=== PATIENT | male | born 1950 | race Caucasian/White ===

== ENCOUNTER 2018-08-03 08:24 | Inpatient (IN) | payer BC, MEDICARE ==
--- NOTE | 2018-08-03 08:57 | ED ---
Shortness of Breath - HPI Summary HPI Summary: Pt is a 68 y/o male who presents to the ED c/o SOB. 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 Benitez. Several weeks ago, he had a lung biopsy. Since then he has had SOB and hemoptysis. Today, pt feels more weak and SOB. He notes that the SOB and coughing are worse when lying flat. Pt also noticed LE edema 2 days ago. He denies any CP. A few weeks ago, he had a port placed in his left chest and still has bruising without tenderness. He has not started his chemotherapy yet, because his platelets are too low. Pt has not been given platelets because he is waiting on insurance approval. Pt takes daily steroids, but denies any diuretics or blood thinners. He quit smoking 1.5 years ago. He is accompanied by his family. PMHx COPD. - History of Current Complaint Chief Complaint: EDShortnessOfBreath Time Seen by Provider: 08/03/18 08:33 Hx Obtained From: Patient, Family/Visual Supervisor Onset/Duration: Gradual Onset, Lasting Weeks - 2-3, Worse Since Timing: Constant Aggrevating Factors: Recumbent Position Alleviating Factors: Nothing Associated Signs & Symptoms: Cough (Bloody Sputum), Calf Pain/Swelling - Allergy/Home Medications Allergies/Adverse Reactions: Allergies Allergy/AdvReac Type Severity Reaction Status Date / Time No Known Allergies Allergy Verified 07/04/18 08:04 PMH/Surg Hx/FS Hx/Imm Hx Endocrine/Hematology History: Denies: Hx Diabetes Cardiovascular History: Denies: Hx Hypertension, Hx Pacemaker/ICD Respiratory History: Reports: Hx Chronic Obstructive Pulmonary Disease (COPD) History: Denies: Hx Dialysis, Hx Renal Disease Sensory History: Denies: Hx Hearing Aid Psychiatric History: Denies: Hx Panic Disorder - Cancer History Cancer Type, Location and Year: Lung CA - Surgical History Surgery Procedure, Year, and Place: LUMBAR - 3 - LAMINECTOMIES- LAST ON -15 + YRS AGO. Lt ANKLE - SCREW Infectious Disease History: No Infectious Disease History: Denies: Traveled Outside the [place] in Last 30 Days - Family History Known Family History: Positive: Other - acoustic neuroma - Social History Alcohol Use: Occasionally Hx Substance Use: No Substance Use Type: Reports: None Hx Tobacco Use: Yes Smoking Status (MU): Former Smoker Type: Cigarettes Amount Used/How Often: 1ppd Length of Time of Smoking/Using Tobacco: 52 years Have You Smoked in the Last Year: No Review of Systems Positive: Other - Generalized weakness Negative: Chest Pain Positive: Shortness Of Breath, Cough, Other - hemoptysis All Other Systems Reviewed And Are Negative: Yes Physical Exam - Summary Physical Exam Summary: Appearance: Well appearing, no pain distress Skin: warm, dry, reflects adequate perfusion, bruising surrounding port site in left upper chest down to the left breast, non-tender, older appearing Head/face: normal Eyes: EOMI, RITA ENT: mucous membranes moist, no blood in pharynx Neck: supple, non-tender Respiratory: diminished breath sounds with some expiratory wheezes Cardiovascular: RRR, pulses symmetrical, bilateral 2-3+ pitting edema Abdomen: non-tender, soft, port placed in right chest Bowel Sounds: present Musculoskeletal: normal, strength/ROM intact Neuro: normal, sensory motor intact, A&Ox3 Triage Information Reviewed: Yes Vital Signs On Initial Exam: Initial Vitals Temp Pulse Resp BP Pulse Ox 98.0 F 76 18 146/61 97 08/03/18 08:25 08/03/18 08:25 08/03/18 08:25 08/03/18 08:25 08/03/18 08:25 Vital Signs Reviewed: Yes Diagnostics - Vital Signs Vital Signs Temp Pulse Resp BP Pulse Ox 08/03/18 08:25 98.0 F 76 18 146/61 97 - Laboratory Result Diagrams: 08/03/18 09:00 08/03/18 08:38 Lab Statement: Any lab studies that have been ordered have been reviewed, and results considered in the medical decision making process. - Radiology CXR Radiology Interpretation Completed By: Radiologist Summary of Radiographic Findings: Alveolar consolidation at the RIGHT mid to lower lung zone appears increased over the. prior exam concerning for pneumonia given the clinical context. ED physician reviewed radiology report. - CT Chest/Thorax CTA CT Interpretation Completed By: Radiologist Summary of CT Findings: 1. SOLITARY PULMONARY EMBOLUS IN THE RIGHT LOWER LOBE BASILAR SEGMENTAL ARTERY. 2. LARGE CAVITARY LESION IN THE LEFT LOWER LOBE, UNCHANGED. 3. SMALL RIGHT PLEURAL EFFUSION, DECREASED. 4. SMALL PERICARDIAL EFFUSION, NEW. 5. ENLARGED MEDIASTINAL OR HILAR LYMPH NODES. SOME OF THE LYMPH NODES IN THE MEDIASTINUM. APPEARS SLIGHTLY LESS PROMINENT. ED physician reviewed radiology report. - EKG 8:52 Cardiac Rate: NL - 72 bpm EKG Rhythm: Sinus Rhythm ST Segment: Normal Ectopy: PACs Summary of EKG Findings: Early transition, nl axis Course/Dx - Course Course Of Treatment: Nurse's note reviewed. She with stage IV metastatic lung cancer presents with intermittent hemoptysis, shortness of breath and bilateral lower extremity swelling. He also has known thrombocytopenia. This may be contributing to intermittent hemoptysis. His platelets today are stable at 38 and pathologist feels as though the platelet transfusion is not indicated. CTA shows right lower lobe pulmonary emboli. I discussed the case with the registered radiologic technologist/oncologist. The patient cannot be anticoagulated at this time due to hemoptysis/thrombocytopenia. Bilateral Doppler ultrasounds of the legs are pending. The patient may need IVC filter. He his hemodynamically stable at time of admission. - Diagnoses Differential Diagnosis/HQI/PQRI: Positive: COPD Exacerbation, CO, Pneumonia, Pneumothorax, Pulmonary Embolism, Pulmonary Edema Provider Diagnoses: Pulmonary embolism, Hemoptysis, Metastatic lung cancer (metastasis from lung to other site) - Physician Notifications Discussed Care of Patient With: Pathology Time Discussed With Above Provider: 09:35 Instructed by Provider To: Other - Pathologist Inthya will not release platelets because pt's platelet count is stable. At 10:[address] Freeman, who said the pt has a PE. At 10:23 Dr. Jasmine accepts pt for admission. - Critical Care Time Critical Care Time: 30-74 min - Critical care time is exclusive of separately billable procedures Discharge - Sign-Out/Discharge Documenting (check all that apply): Patient Departure - Admit - Discharge Plan Condition: Stable Disposition: ADMITTED TO [facility] Referrals: Florida Pemberton NP [Primary Care Provider] - - Billing Disposition and Condition Condition: STABLE Disposition: Admitted to [facility] - Attestation Statements Document Initiated by Scribe: Yes Documenting Scribe: Shahla Mcghee Provider For Whom Isauro is Documenting (Include Credential): Niall Pierre MD Scribe Attestation: Shahla Fulton, scribed for Niall Pierre MD on 08/03/18 at 1051. Scribe Documentation Reviewed: Yes Provider Attestation: The documentation as recorded by the Shahla berrios accurately reflects the service I personally performed and the decisions made by me, Niall Pierre MD Status of Scribe Document: Viewed
[2018-08-03 09:07] LABS: Albumin 3.1 g/dL (3.2-5.2); Albumin/Globulin Ratio 1.5 (1-3); BUN/Creatinine Ratio 51.6 (8-20); Calcium 8.8 mg/dL (8.6-10.3); EGFR Non-African American 82.6 (>60); Globulin 2.1 g/dL (2-4); Total Bilirubin 0.9 mg/dL (0.2-1.0); Total Protein 5.2 g/dL (6.4-8.9)
[2018-08-03] MEDS ORDERED: Iohexol 350* (CONTRAST) 500 ML MDV IV ONE (09:12)
[2018-08-03 09:29] LABS: ABS Basophils 0 10^3/ul (0-0.2); ABS Eosinophils 0.1 10^3/ul (0-0.6); ABS Lymphocytes 0.5 10^3/ul (1.0-4.8); ABS Monocytes 0.4 10^3/ul (0-0.8); ABS Neutrophils 10.9 10^3/ul (1.5-7.7); ABS Nucleated RBC 0 10^3/ul; Eosinophil % 0.5 %; Hematocrit 34 % (42-52); Hemoglobin 11.5 g/dl (14.0-18.0); Lymphocyte % 4.6 %; Mean Corpuscular HGB Conc 34 g/dl (31-36); Mean Corpuscular Hemoglobin 31 pg (27-31); Mean Corpuscular Volume 91 fL (80-94); Mean Platelet Volume 8.7 fL (7.4-10.4); Nucleated Red Blood Cells % 0; Platelet Count 38 10^3/ul (150-450); Red Blood Count 3.77 10^6/ul (4.00-5.40); Red Cell Distribution Width 17 % (10.5-15)
[2018-08-03 09:40] LABS: Activated Partial Thrombo Time 22.8 seconds (26.0-36.3); INR 1.09 (0.77-1.02)
[2018-08-03] MEDS ORDERED: Ondansetron INJ* 2 MG/ML VIAL IV PRN (11:18)
[2018-08-03] MEDS ORDERED: Furosemide IV* 10 MG/ML 2 ML VIAL (20 MG) IV ONE (11:42)
[2018-08-03] MEDS ORDERED: Zolpidem TAB* 10 MG PO PRN (11:43)
[2018-08-03] MEDS ORDERED: [UNRECOGNIZED DRUG - OTHER] IV SCH ×6 (12:00)
[2018-08-03] MEDS ORDERED: Dextrose 50% Syringe 50 ML* 25 GM/50 ML SYRINGE IV PUSH PRN (12:00)
[2018-08-03] MEDS ORDERED: IMMUNE GLOBULN IV SCH ×6 (12:00)
--- NOTE | 2018-08-03 13:33 | HP ---
CC: Florida Pemberton NP; Dr. Juan Norton * ADMISSION HISTORY AND PHYSICAL: DATE OF ADMISSION: 08/03/18 PRIMARY CARE PROVIDER: Florida Pemberton NP PRIMARY ONCOLOGIST: Dr. Juan Norton. ATTENDING PHYSICIAN: Dr. Camila Jasmine.* (DICTATED BY ZEUS GATICA) ADMITTING PROVIDER: ZEUS Gatica CHIEF COMPLAINT: Weakness. HISTORY OF PRESENT ILLNESS: This is a 68-year-old gentleman who was rather recently diagnosed with metastatic non-small cell lung cancer with OPERATIONAL RISK MANAGER metastases. He underwent gamma knife on 07/12/18 and had plans to initiate chemotherapy with carboplatin and pemetrexed, but his pretreatment labs showed rather profound thrombocytopenia. The patient had had a port placed approximately a week prior and had extensive bruising following this placement. Suspicion at that time was that his thrombocytopenia was secondary to ITP. He had multiple large platelets appreciated on peripheral smear. Dr. Norton had recommended initiating IVIG as opposed to high dose dexamethasone at that time as he was concerned that he had multiple adverse effects from the relatively low dose of dexamethasone that he was on following his gamma knife procedure. Unable to obtain prior authorization for IVIG when the patient reported progressive weakness and subsequently presented to the emergency department for further evaluation. The patient notes that over the last couple of days, he has had significant increase in shortness of breath and reports that it is worse when lying flat. He has mild intermittent hemoptysis, but no large clots, mostly flecks of blood or streaks on his mucus. He has become so weak that he is barely able to independently transfer himself from bed to a chair, but can slowly ambulate with the use of a walker. He has had no fevers. Denies abdominal pain, nausea , vomiting, or diarrhea. He denies any chest pain, but does have a significant sore throat since being on dexamethasone. He was prescribed Miracle Mouthwash, but reports this has not been helping. PAST MEDICAL HISTORY: 1. Metastatic non-small cell lung cancer with OPERATIONAL RISK MANAGER metastases status post gamma knife on 07/12/18. 2. Hyperglycemia likely secondary to corticosteroids. 3. Chronic back pain. PAST SURGICAL HISTORY: 1. Ankle surgery. 2. Back surgery. 3. Sinus surgery. HOME MEDICATIONS: 1. Dexamethasone 4 mg p.o. twice daily. 2. Glyburide 2.5 mg p.o. daily. 3. Multivitamin 1 tablet p.o. daily. 4. Omeprazole 20 mg p.o. daily. 5. Trazodone 50 mg p.o. at bedtime. 6. Ambien 10 mg p.o. at bedtime as needed for insomnia. FAMILY HISTORY: The patient does have a sister with an optic nerve sheath tumor and a brother with an acoustic neuroma. SOCIAL HISTORY: The patient has a greater than 28-habo-ctou smoking history. He quit about a year ago. He is and lives at home with his . He is employed at the [employer]. REVIEW OF SYSTEMS: As noted above in HPI. All other systems were reviewed, otherwise negative. PHYSICAL EXAMINATION GENERAL: This is a pleasant 68-year-old gentleman who appears fatigued, but is in no acute distress and accompanied by his daughter and . INITIAL VITALS: Temperature 98 degrees Fahrenheit, pulse 76 beats per minute, respiratory rate 18, oxygen saturation 97% on room air, blood pressure 146/61. HEENT: Head is normocephalic, atraumatic. Mucous membranes are pink and moist. RESPIRATORY: There is a diffuse wheeze present in all lung guillory. No increased work of breathing. CARDIOVASCULAR: Heart has a regular rate and rhythm without murmurs, rubs, or gallops. ABDOMEN: Soft and nontender to palpation. EXTREMITIES: Trace to 1+ lower extremity edema. PSYCH: The patient is alert and appropriately oriented. Affect is appropriate to the situation. SKIN: There is extensive bruising over his right chest wall. LABORATORY DATA: CBC shows a white blood cell count of 12,000, hemoglobin of 11.5 g/dL, and a platelet count of 38,000. Comprehensive metabolic panel shows a sodium of 137, potassium of 5.0, BUN of 47, creatinine of 0.91, glucose of 427. Lactic acid of 2.2. Troponin 0.04. BNP of 91. HOSPITAL IMAGIN. Chest x-ray shows alveolar consolidation at the right mid to lower lung zone , which appears increased over prior exam. 2. CTA of the chest shows a solitary PE in the right lower lobe basilar segmental artery, a large cavitary lesion in the left lower lobe which appears unchanged. There is a small right pleural effusion, small pericardial effusion and large mediastinal and hilar lymph nodes, which may be slightly less prominent than on prior exam. ASSESSMENT AND PLAN: This is a 68-year-old gentleman with relatively new diagnosis of metastatic lung cancer who is now status post gamma knife procedure and had plans to initiate chemotherapy earlier this week, but was found to have profound thrombocytopenia with large platelets on smear indicative of likely immune thrombocytopenic purpura. He now presents to the emergency department with increased weakness and finding of a solitary pulmonary embolism in the right lower lobe. The patient is not hypoxic and is otherwise stable. His platelet count today is 38,000, which certainly complicates his treatment for pulmonary embolism. 1. Pulmonary embolism - the patient is not hypoxic and his pulmonary embolism burden is low. We will plan for placement of an IVC filter and initiate anticoagulation when platelet count is greater than 50,000. 2. 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 If his platelets respond to IVIG, this would help to confirm the diagnosis of immune thrombocytopenic purpura. If he has no response to IVIG, we will plan for bone marrow biopsy tomorrow as his thrombocytopenia may represent malignant infiltration of the marrow, but this seems to be less likely. 3. Dyspnea - his degree of dyspnea seems to be out of proportion with his burden of pulmonary embolism, but certainly could be explained by this. He does have a rather diffuse wheeze appreciated on exam, but no history of chronic obstructive pulmonary disease, but does have an extensive smoking history. It appears clinically that he may be slightly fluid overloaded and he does complain of what sounds to be orthopnea. We will give him mild diuresis and see if this helps at all with the wheeze on auscultation and his complaints of dyspnea. 4. Weakness - this may be due to his pulmonary embolism. Dr. Norton had wondered if his weakness may be due to steroids. We will check a CPK, which would be helpful to evaluate for a steroid-induced myopathy. At this time, we will continue his home dose of dexamethasone given his rather recent gamma knife , but we will continue to try to taper this quickly. 5. OPERATIONAL RISK MANAGER metastases status post gamma knife - continue dexamethasone at current doses of 4 mg twice daily at this time. 6. Hyperglycemia - this is likely due to his recent steroid use. He has no prior history of diabetes. He was recently started on glipizide, which will resume when he is able to start eating and drinking, but for the time being, we will start a sliding scale Humalog and monitor his glucose at mealtimes and before bed. 7. Lung cancer - plan is to initiate palliative chemotherapy following this hospitalization and assuming improvement in his thrombocytopenia. 8. DVT prophylaxis - contraindicated with thrombocytopenia and we will avoid intermittent compression devices due to concern for possible deep venous thrombosis. 9. Code status. The patient is full code. 10. Disposition. The patient is being admitted to the hospital under inpatient status with anticipated length of stay to be greater than 2 midnights. TIME SPENT: 60 minutes were spent on this admission, greater than half the time spent in counseling. ZEUS GATICA [id number]/CPS #: [id number] RAJAN
[2018-08-03] MEDS ORDERED: Heparin 2 UNITS/ML IVPREMIX* 1,000 ML IV ONE (14:28)
[2018-08-03] MEDS ORDERED: Iohexol 180 (CONTRAST) 10 ML SDV IV ONE (14:37)
[2018-08-03] MEDS ORDERED: Lidocaine 1% INJ* 10 MG/ML 30 ML SDV ONE (14:37)
[2018-08-03] MEDS ORDERED: Midazolam* 1 MG/ML 5 ML VIAL (5 MG) ONE (14:51)
[2018-08-03] MEDS ORDERED: fentaNYL* 50 MCG/ML 2 ML VIAL (100 MCG VIAL) ONE (15:03)
[2018-08-03] MEDS: [UNRECOGNIZED DRUG - OTHER] IV SCH (17:10)
[2018-08-03] MEDS: IMMUNE GLOBULN IV SCH (17:10)
[2018-08-03] MEDS: Insulin LISPRO* 1 UNITS UNIT SUBCUT SCH ×2 (18:37→22:24)
--- NOTE | 2018-08-03 20:55 | OP ---
CC: Florida Pemberton NP; Dr. Jose Norton * DATE OF OPERATION: 08/03/18 - ROOM #ICU-02 DATE OF : 48 SURGEON: Errol Us MD FIBRE COMPOSITE TECHNICIAN: None. ANESTHESIOLOGIST: Dr. Ferreira. ANESTHESIA: LMAC anesthesia. PRE-OP DIAGNOSES: 1. Pulmonary embolus. 2. Thrombocytopenia. 3. Lung cancer. POST-OP DIAGNOSES: 1. Pulmonary embolus. 2. Thrombocytopenia. 3. Lung cancer. OPERATIVE PROCEDURE: Placement of right transfemoral IVC filter. DESCRIPTION OF PROCEDURE: The patient was supine on the operative table. The right groin was prepped with antiseptic and draped in a sterile fashion. Local infiltrative anesthesia was administered and right femoral venipuncture carried out without difficulty. Guidewire passed under fluoroscopic guidance. The introducer sheath was placed and then the femoral-approach vena cava filter was placed. This was then advanced using the pusher and delivered to the L3 level. It opened nicely. The catheter was withdrawn. Pressure was held for about 5 minutes. Wound was sutured with 4-0 Vicryl followed by Steri-Strips. He tolerated the procedure well and was brought to Recovery in good condition. No complications. No drains. No specimens. Blood loss almost nil. [id number]/CPS #: [id number] [facility]
[2018-08-03] MEDS ORDERED: traZODone TAB* 50 MG TAB PO SCH (21:00)
[2018-08-03] MEDS ORDERED: Dexamethasone TAB* 4 MG PO SCH (21:00)
[2018-08-03] MEDS ORDERED: EPINEPHrine SYR 0.1MG/ML* SYRINGE ONE (22:35)
[2018-08-03] MEDS ORDERED: Propofol* 200 ML ONE (22:55)
[2018-08-03] MEDS ORDERED: Midazolam* 1 MG/ML 2 ML VIAL (2 MG) IV ONE (23:19)
[2018-08-03] MEDS ORDERED: Midazolam* 1 MG/ML 2 ML VIAL (2 MG) ONE (23:22)
[2018-08-03] MEDS ORDERED: Dexamethasone IV* 4 MG in NS 0.9% 50 ML* 50 ML IVPB ONE (23:30)
[2018-08-03] MEDS ORDERED: Pantoprazole IV* 40 MG IV SCH (23:45)
[2018-08-03] MEDS ORDERED: Dexamethasone IV* 4 MG/ML 1 ML (4 MG) IV SLOW PU ONE (23:45)
[2018-08-03] MEDS ORDERED: D5W 1/2 NS 1000 ML BAG* 1,000 ML IV SCH (23:45)
[2018-08-03] MEDS ORDERED: NS 0.9% 1000 ML* 1,000 ML IV SCH (23:45)
[2018-08-04] MEDS ORDERED: ZOSYN 3.375 GM x ONE DOSE over 30 miuntes IVPB ×2
--- NOTE | 2018-08-04 00:50 | PN ---
Hospitalist Progress Note Date of Service: 08/04/18 CAT call placed for choking than ABC alert called as patient lost pulse. According to nursing staff patient found to be choking on sandwich. Hemlick start during this lost pulse. ABC called. See code flowsheet. Dr duarte intubated and noted food in trachea near larynx. removed with forceps. ROSC obtained with 2 epi bolus. Pt transfer to icu. Family updated. Called surgery and oncology and DR holt. Dr puga ordering new labs and ct neck and brain. echo in am as well. No cooling per Dr holt. frequent neuro checks ordered. Will follow closely
--- NOTE | 2018-08-04 01:14 | ED ---
Progress - Progress Note Progress Note: Date: 08/03/2018 Time:2300 Code ABC was called. Upon my arrival patient within the floor, CPR was in progress, Code was running by the hospitalist team. Using Glidescope, there was small pieces of food in the oropharynx. I pulled him out with using Meg forceps. Patient intubated with ET tube, size 7.5. Placement confirmed with capnography and auscultation. Course/Dx - Course Course Of Treatment: Nurse's note reviewed. She with stage IV metastatic lung cancer presents with intermittent hemoptysis, shortness of breath and bilateral lower extremity swelling. He also has known thrombocytopenia. This may be contributing to intermittent hemoptysis. His platelets today are stable at 38 and pathologist feels as though the platelet transfusion is not indicated. CTA shows right lower lobe pulmonary emboli. I discussed the case with the fingerprint technician/oncologist. The patient cannot be anticoagulated at this time due to hemoptysis/thrombocytopenia. Bilateral Doppler ultrasounds of the legs are pending. The patient may need IVC filter. He his hemodynamically stable at time of admission. - Diagnoses Provider Diagnoses: Pulmonary embolism, Hemoptysis, Metastatic lung cancer (metastasis from lung to other site) - Provider Notifications Time Discussed With Above Provider: 09:35 Instructed by Provider To: Other - Pathologist Nithya will not release platelets because pt's platelet count is stable. At 10:[address] Freeman, who said the pt has a PE. At 10:23 Dr. Jasmine accepts pt for admission. - Critical Care Time Critical Care Time: 30-74 min - Critical care time is exclusive of separately billable procedures Discharge - Sign-Out/Discharge Documenting (check all that apply): Patient Departure - Discharge Plan Condition: Stable Disposition: ADMITTED TO [facility] - Billing Disposition and Condition Condition: STABLE Disposition: Admitted to [facility]
[2018-08-04] MEDS: Propofol* 100 ML IV SCH ×7 (01:18→23:03)
[2018-08-04 01:20] LABS: Hematocrit 30 % (42-52); Hemoglobin 10.3 g/dl (14.0-18.0); Mean Corpuscular HGB Conc 34 g/dl (31-36); Mean Corpuscular Hemoglobin 31 pg (27-31); Mean Corpuscular Volume 90 fL (80-94); Mean Platelet Volume 8.9 fL (7.4-10.4); Platelet Count 33 10^3/ul (150-450); Red Blood Count 3.37 10^6/ul (4.00-5.40); Red Cell Distribution Width 16 % (10.5-15); White Blood Count 8.8 10^3/ul (3.5-10.8)
[2018-08-04 01:33] LABS: BUN/Creatinine Ratio 40.4 (8-20); Calcium 8.3 mg/dL (8.6-10.3); Potassium 4.2 mmol/L (3.5-5.0)
[2018-08-04 01:37] LABS: ABS Basophils 0 10^3/ul (0-0.2); ABS Eosinophils 0.1 10^3/ul (0-0.6); ABS Lymphocytes 0.4 10^3/ul (1.0-4.8); ABS Monocytes 0.3 10^3/ul (0-0.8); ABS Nucleated RBC 0 10^3/ul
[2018-08-04 01:39] LABS: Immature Granulocytes 30 % (0-9); Lymphocytes % 1 %; Monocytes % 5 %; Myelocytes % 2 % (0-1); Neutrophil % 60 %; Promyelocytes % 2 %
[2018-08-04 01:40] LABS: Nucleated Red Blood Cells/100 1 (0-0)
[2018-08-04 01:41] LABS: Polychromasia 1+; Schistocytes 2+
[2018-08-04 01:42] LABS: ABS Neutrophils 7.9 10^3/ul (1.5-7.7)
[2018-08-04 01:43] LABS: ABS Eosinophils 0.4 10^3/ul (0-0.6)
[2018-08-04 01:45] LABS: Albumin 2.5 g/dL (3.2-5.2); Albumin/Globulin Ratio 0.6 (1-3); Globulin 4.1 g/dL (2-4); Magnesium 1.8 mg/dL (1.9-2.7); Phosphorus 5.3 mg/dL (2.5-5.0); Total Bilirubin 0.8 mg/dL (0.2-1.0); Total Protein 6.6 g/dL (6.4-8.9)
[2018-08-04 04:45] LABS: Hematocrit 27 % (42-52); Hemoglobin 9.3 g/dl (14.0-18.0); Mean Corpuscular HGB Conc 34 g/dl (31-36); Mean Corpuscular Hemoglobin 31 pg (27-31); Mean Corpuscular Volume 90 fL (80-94); Mean Platelet Volume 9.3 fL (7.4-10.4); Platelet Count 31 10^3/ul (150-450); Red Blood Count 3.01 10^6/ul (4.00-5.40); Red Cell Distribution Width 16 % (10.5-15); White Blood Count 8.1 10^3/ul (3.5-10.8)
[2018-08-04] MEDS ORDERED: Piperacillin/Tazobac ADVAN(*) 3.375 GM in NS 0.9% 100 ML* 100 ML IVPB SCH (05:00)
[2018-08-04 05:03] LABS: ABS Basophils 0 10^3/ul (0-0.2); ABS Eosinophils 0.1 10^3/ul (0-0.6); ABS Lymphocytes 0.4 10^3/ul (1.0-4.8); ABS Monocytes 0.4 10^3/ul (0-0.8); ABS Neutrophils 7.4 10^3/ul (1.5-7.7); ABS Nucleated RBC 0 10^3/ul
[2018-08-04 05:06] LABS: Albumin 2.4 g/dL (3.2-5.2); Albumin/Globulin Ratio 0.6 (1-3); BUN/Creatinine Ratio 40.6 (8-20); EGFR Non-African American 77.7 (>60); Globulin 3.9 g/dL (2-4); Potassium 4.5 mmol/L (3.5-5.0); Total Bilirubin 0.9 mg/dL (0.2-1.0); Total Protein 6.3 g/dL (6.4-8.9)
[2018-08-04] MEDS ORDERED: Dexamethasone IV* 4 MG/ML 1 ML (4 MG) IV SLOW PU SCH (06:00)
--- NOTE | 2018-08-04 06:04 | PN ---
Hospitalist Progress Note Date of Service: 08/03/18 program services planner was called which was converted into a abc alert due to his respiratory status ---> pt's family just left and he was eating a sandwich and choked ---> he was intubated for airway and pieces of sandwich were taken out while he was intubated. pt had chest compression along with two doses of epi ---> head ct was neg with similar vasogenic edema as prior. neck ct was done due to neck swelling ---> streaky soft tissue density vs edema with prominent lymph nodes -- -> pt was just dxd with pe and had ivc but unable to be anticoag due to low plat <50,000 as per onc. stat abg post abc alert is 7.29/39/328/19 stat chest x ray showed worsening rml infil ---> blood cx done and started with zosyn. onc/ command and control systems integrator both made aware after program services planner by midlevel Anthony. d/w and other family members reg his condition and informed them his overall prognosis is not great with hx his lung ca/brain edema. as per nursing staff in icu pt was doing well right prior to transfer and has no hx of dsyphagia ---> he might choke on his sandwich as a result of other causes which currently are still being investigated vital 136/76 19 pulse 87 temp 98.2 general sedated and intubated heart s1 s2 rrr tachy lung distant lung sounds intubated neuro sedated ( was going against ngt prior to sedation ) labs head neck and ekg as per chart a/p 1 aspirated on a sandwich ---> no hx of dysphagia ---> it might be a secondary cause instead of primary cause - remained intubated for airway protection - may need ent and command and control systems integrator to eval his airway in am ( ie laryngealscope vs egd ) 2 aspiration pna/pneumonitis - will cover with zosyn 3 elevated trop which this is prob demand ischemia due to his aspiration and his overall condition trop went from 0.1 to 0.35 at 4 am - latosha at this point total critical care time about 120 min due to program services planner/code blue and follow up throughtout the night
[2018-08-04] MEDS ORDERED: Perflutren Lipid Microsphere* 3 ML VIAL ONE (08:09)
--- NOTE | 2018-08-04 08:59 | PN ---
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 He also has DVT/PE and IVC filter placed yesterday. In the evening of 08/03 the patient aspirated overnight and had a PEA arrest. He was intubated and brought to the ICU. 08/04: Following commands when sedation turned off. Significant neck swelling. Vital Signs: Temp Pulse Resp BP SpO2 FiO2 98.4 F 71 20 131/71 100 40 08/04/18 08:30 08/04/18 08:30 08/04/18 07:00 08/04/18 08:30 08/04/18 08:30 08/04 08:00 Physical Exam: Gen - intubated and sedated Heent - ncat, perrl neck - +swelling cv - s1/s2, no murmur lungs - cta, +crackles abd - soft, nt, nd ext - trace edema neuro - following commands when off sedation Fluid Balance (Past 24 Hours): I= O= Net Intake & Output 08/02/18 08/03/18 08/04/18 08/05/18 06:59 06:59 06:59 06:59 Intake Total 2110 Output Total 510 330 Balance 1600 -330 Weight 89.721 kg 92.1 kg Intake: IV Fluids 1790 IVIG 868 LR 650 NS 272 Medicated IV 320 propofol 210 zosyn 110 Output: Godfrey 510 330 Other: Estimated Void Large # Voids 1 Labs: Laboratory Results - last 24 hr 08/03/18 08/03/18 08/03/18 08:38 09:00 09:00 WBC 12.0 H RBC 3.77 L Hgb 11.5 L Hct 34 L MCV 91 MCH 31 MCHC 34 RDW 17 H Plt Count 38 L MPV 8.7 Neut % (Auto) 91.1 Lymph % (Auto) 4.6 [place] % (Auto) 3.6 Eos % (Auto) 0.5 Baso % (Auto) 0.2 Absolute Neuts (auto) 10.9 H Absolute Lymphs (auto) 0.5 L Absolute Monos (auto) 0.4 Absolute Eos (auto) 0.1 Absolute Basos (auto) 0 Absolute Nucleated RBC 0 Immature Gran % Neutrophils % Band Neutrophils % Lymphocytes % Monocytes % Eosinophils % Myelocytes % Promyelocytes % Nucleated RBC % 0 Abs Neuts (Manual) Abs Lymphs (Manual) Abs Monocytes (Manual) Absolute Eos (Manual) Nucleated RBCs/100 WBC Normal RBC Morphology Polychromasia Schistocytes INR (Anticoag Therapy) 1.09 H APTT 22.8 L Patient Temperature ABG pH ABG pH (Temp Correct) ABG pCO2 ABG pCO2 (Temp Corrct ABG pO2 ABG pO2 (Temp Correct ABG HCO3 ABG O2 Saturation ABG Base Excess Respiration Rate Ventilator Type Vent Mode FiO2 Inspiratory Time PEEP Pressure Support Pressure Control EPAP IPAP BiPAP Sodium 137 Potassium 5.0 Chloride 104 Carbon Dioxide 27 Anion Gap 6 BUN 47 H Creatinine 0.91 Est GFR ( Amer) 100.0 Est GFR (Non-Af Amer) 82.6 BUN/Creatinine Ratio 51.6 H Glucose 427 H POC Glucose (mg/dL) Lactic Acid Calcium 8.8 Phosphorus Magnesium Total Bilirubin 0.90 AST 9 L ALT 27 Alkaline Phosphatase 67 Total Creatine Kinase 32 Troponin I 0.04 H* B-Natriuretic Peptide Total Protein 5.2 L Albumin 3.1 L Globulin 2.1 Albumin/Globulin Ratio 1.5 Blood Type Antibody Screen 08/03/18 08/03/18 08/03/18 09:00 09:00 09:00 WBC RBC Hgb Hct MCV MCH MCHC RDW Plt Count MPV Neut % (Auto) Lymph % (Auto) San[place] % (Auto) Eos % (Auto) Baso % (Auto) Absolute Neuts (auto) Absolute Lymphs (auto) Absolute Monos (auto) Absolute Eos (auto) Absolute Basos (auto) Absolute Nucleated RBC Immature Gran % Neutrophils % Band Neutrophils % Lymphocytes % Monocytes % Eosinophils % Myelocytes % Promyelocytes % Nucleated RBC % Abs Neuts (Manual) Abs Lymphs (Manual) Abs Monocytes (Manual) Absolute Eos (Manual) Nucleated RBCs/100 WBC Normal RBC Morphology Polychromasia Schistocytes INR (Anticoag Therapy) APTT Patient Temperature ABG pH ABG pH (Temp Correct) ABG pCO2 ABG pCO2 (Temp Corrct ABG pO2 ABG pO2 (Temp Correct ABG HCO3 ABG O2 Saturation ABG Base Excess Respiration Rate Ventilator Type Vent Mode FiO2 Inspiratory Time PEEP Pressure Support Pressure Control EPAP IPAP BiPAP Sodium Potassium Chloride Carbon Dioxide Anion Gap BUN Creatinine Est GFR ( Amer) Est GFR (Non-Af Amer) BUN/Creatinine Ratio Glucose POC Glucose (mg/dL) Lactic Acid 2.2 H* Calcium Phosphorus Magnesium Total Bilirubin AST ALT Alkaline Phosphatase Total Creatine Kinase Troponin I B-Natriuretic Peptide 91 Total Protein Albumin Globulin Albumin/Globulin Ratio Blood Type A Positive Antibody Screen Negative 08/03/18 08/03/18 08/03/18 18:07 22:19 23:30 WBC RBC Hgb Hct MCV MCH MCHC RDW Plt Count MPV Neut % (Auto) Lymph % (Auto) [place] % (Auto) Eos % (Auto) Baso % (Auto) Absolute Neuts (auto) Absolute Lymphs (auto) Absolute Monos (auto) Absolute Eos (auto) Absolute Basos (auto) Absolute Nucleated RBC Immature Gran % Neutrophils % Band Neutrophils % Lymphocytes % Monocytes % Eosinophils % Myelocytes % Promyelocytes % Nucleated RBC % Abs Neuts (Manual) Abs Lymphs (Manual) Abs Monocytes (Manual) Absolute Eos (Manual) Nucleated RBCs/100 WBC Normal RBC Morphology Polychromasia Schistocytes INR (Anticoag Therapy) APTT Patient Temperature Not Reportable ABG pH 7.29 L ABG pH (Temp Correct) Not Reportable ABG pCO2 39 ABG pCO2 (Temp Corrct Not Reportable ABG pO2 328 H ABG pO2 (Temp Correct Not Reportable ABG HCO3 19.3 ABG O2 Saturation 99.2 H ABG Base Excess -7.2 L Respiration Rate 12 Ventilator Type 550 Vent Mode Not Reportable FiO2 100 Inspiratory Time Not Reportable PEEP 5 Pressure Support Not Reportable Pressure Control Not Reportable EPAP Not Reportable IPAP Not Reportable BiPAP Not Reportable Sodium Potassium Chloride Carbon Dioxide Anion Gap BUN Creatinine Est GFR ( Amer) Est GFR (Non-Af Amer) BUN/Creatinine Ratio Glucose POC Glucose (mg/dL) 244 H 180 H Lactic Acid Calcium Phosphorus Magnesium Total Bilirubin AST ALT Alkaline Phosphatase Total Creatine Kinase Troponin I B-Natriuretic Peptide Total Protein Albumin Globulin Albumin/Globulin Ratio Blood Type Antibody Screen 08/04/18 08/04/18 08/04/18 01:00 01:00 01:00 WBC 8.8 RBC 3.37 L Hgb 10.3 L Hct 30 L MCV 90 MCH 31 MCHC 34 RDW 16 H Plt Count 33 L MPV 8.9 Neut % (Auto) Not Reportable Lymph % (Auto) Not Reportable Sanborn % (Auto) Not Reportable Eos % (Auto) Not Reportable Baso % (Auto) Not Reportable Absolute Neuts (auto) 8.0 H Absolute Lymphs (auto) 0.4 L Absolute Monos (auto) 0.3 Absolute Eos (auto) 0.1 Absolute Basos (auto) 0 Absolute Nucleated RBC 0 Immature Gran % 30 H Neutrophils % 60 Band Neutrophils % 26 H Lymphocytes % 1 Monocytes % 5 Eosinophils % 4 Myelocytes % 2 H Promyelocytes % 2 Nucleated RBC % Not Reportable Abs Neuts (Manual) 7.9 H Abs Lymphs (Manual) 0.1 L Abs Monocytes (Manual) 0.4 Absolute Eos (Manual) 0.4 Nucleated RBCs/100 WBC 1 H Normal RBC Morphology Not Reportable Polychromasia 1+ Schistocytes 2+ INR (Anticoag Therapy) APTT Patient Temperature ABG pH ABG pH (Temp Correct) ABG pCO2 ABG pCO2 (Temp Corrct ABG pO2 ABG pO2 (Temp Correct ABG HCO3 ABG O2 Saturation ABG Base Excess Respiration Rate Ventilator Type Vent Mode FiO2 Inspiratory Time PEEP Pressure Support Pressure Control EPAP IPAP BiPAP Sodium 134 L Potassium 4.2 Chloride 101 Carbon Dioxide 26 Anion Gap 7 BUN 40 H Creatinine 0.99 Est GFR ( Amer) 90.7 Est GFR (Non-Af Amer) 75.0 BUN/Creatinine Ratio 40.4 H Glucose 225 H POC Glucose (mg/dL) Lactic Acid 3.1 H* Calcium 8.3 L Phosphorus 5.3 H Magnesium 1.8 L Total Bilirubin 0.80 AST 206 H ALT 406 H Alkaline Phosphatase 94 Total Creatine Kinase Troponin I 0.10 H* B-Natriuretic Peptide Total Protein 6.6 Albumin 2.5 L Globulin 4.1 H D Albumin/Globulin Ratio 0.6 L Blood Type Antibody Screen 08/04/18 08/04/18 08/04/18 04:20 04:20 05:55 WBC 8.1 RBC 3.01 L Hgb 9.3 L Hct 27 L MCV 90 MCH 31 MCHC 34 RDW 16 H Plt Count 31 L MPV 9.3 Neut % (Auto) Not Reportable Lymph % (Auto) Not Reportable Sanborn % (Auto) Not Reportable Eos % (Auto) Not Reportable Baso % (Auto) Not Reportable Absolute Neuts (auto) 7.4 Absolute Lymphs (auto) 0.4 L Absolute Monos (auto) 0.4 Absolute Eos (auto) 0.1 Absolute Basos (auto) 0 Absolute Nucleated RBC 0 Immature Gran % Neutrophils % Band Neutrophils % Lymphocytes % Monocytes % Eosinophils % Myelocytes % Promyelocytes % Nucleated RBC % Not Reportable Abs Neuts (Manual) Abs Lymphs (Manual) Abs Monocytes (Manual) Absolute Eos (Manual) Nucleated RBCs/100 WBC Normal RBC Morphology Polychromasia Schistocytes INR (Anticoag Therapy) APTT Patient Temperature Not Reportable ABG pH 7.44 ABG pH (Temp Correct) Not Reportable ABG pCO2 41 ABG pCO2 (Temp Corrct Not Reportable ABG pO2 131 H ABG pO2 (Temp Correct Not Reportable ABG HCO3 27.5 ABG O2 Saturation 99.4 H ABG Base Excess 3.3 H Respiration Rate 12 Ventilator Type 550 Vent Mode Cmv FiO2 50 Inspiratory Time Not Reportable PEEP 5 Pressure Support Not Reportable Pressure Control Not Reportable EPAP Not Reportable IPAP Not Reportable BiPAP Not Reportable Sodium 134 L Potassium 4.5 Chloride 101 Carbon Dioxide 27 Anion Gap 6 BUN 39 H Creatinine 0.96 Est GFR ( Amer) 94.0 Est GFR (Non-Af Amer) 77.7 BUN/Creatinine Ratio 40.6 H Glucose 213 H POC Glucose (mg/dL) Lactic Acid Calcium 8.0 L Phosphorus Magnesium Total Bilirubin 0.90 AST 151 H ALT 370 H Alkaline Phosphatase 81 Total Creatine Kinase Troponin I 0.35 H* B-Natriuretic Peptide Total Protein 6.3 L Albumin 2.4 L Globulin 3.9 Albumin/Globulin Ratio 0.6 L Blood Type Antibody Screen Studies: CXR 08/03/18 IMPRESSION: #. Alveolar consolidation at the RIGHT mid to lower lung zone appears increased over the prior exam concerning for pneumonia given the clinical context. CTA Chest 08/03/18 IMPRESSION: 1. SOLITARY PULMONARY EMBOLUS IN THE RIGHT LOWER LOBE BASILAR SEGMENTAL ARTERY. 2. LARGE CAVITARY LESION IN THE LEFT LOWER LOBE, UNCHANGED. 3. SMALL RIGHT PLEURAL EFFUSION, DECREASED. 4. SMALL PERICARDIAL EFFUSION, NEW. 5. ENLARGED MEDIASTINAL OR HILAR LYMPH NODES. SOME OF THE LYMPH NODES IN THE MEDIASTINUM APPEARS SLIGHTLY LESS PROMINENT. LE doppler 08/03/18 IMPRESSION: 1. LIMITED VISUALIZATION OF THE CALF VEINS BILATERALLY WHICH WHICH MAY INDICATE CALF VEIN THROMBOSIS. 2. THERE IS NO EXTENSION INTO OR ABOVE THE POPLITEAL VEINS BILATERALLY CXR 08/03/18 IMPRESSION: #. Bilateral inflammatory infiltrates most prominent in the RIGHT perihilar region with suggestion of interval worsening compared with the earlier exam of the same date however this may in part be atelectasis given supine technique #. The endotracheal tube could be advanced 1.[address] 08/03/18 IMPRESSION: Vasogenic edema within the deep white matter of the parietal lobes, right greater than left. Similar findings were present on prior MR brain from 06/12/2018. Cannot rule out underlying small metastases. Recommend repeat MR brain with and without contrast for better evaluation. Neck CT 08/03/18 IMPRESSION: 1. Streaky soft tissue density versus edema in the deep spaces of the neck surrounding the thyroid gland, of unknown etiology. Possibly reactive in the setting of recent intubation. 2. Prominent right cervical level IV lymph node measuring 2.5 cm. this along with numerous enlarged mediastinal lymph nodes and provided history of lung cancer is concerning for metastatic disease. 3. Small right pleural effusion. 4. Lines and tubes as above. Impression: Cardiac arrest (Acute) I46.9 DVT (deep venous thrombosis) (Acute) I82.409 Pulmonary embolism (Acute) I26.99 Respiratory failure (Acute) J96.90 Squamous cell carcinoma of lung, stage IV (Acute) C34.90 Thrombocytopenia (Acute) D69.6 Plan: Neuro - following commands off sedation CV - cardiac arrest - 2/2 aspiration - tte pending - supportive care pulm - respiratory failure - 2/2 aspiration - wean vent as tolerated - will need several days of steroids given significant neck swelling before extubation id - aspiration pna? - afebrile - normal wbc - given 1 dose of zosyn - follow up cultures gi - tube feeds renal - montior i/o - monitor bmp heme - stage 4 SCC of lung, ITP, dvt/pe 1) lung SCC - management per onc - pain control 2) ITP - IVIG x 5 days - monitor cbc 3) dvt/pe - s/p ivc filter - no AC with low platelets Endo - hyperglycemia - 2/2 steroids - check fs, niss lines - port, piv ppx - gi/dvt full code Critical Care Time: 65 mins
[2018-08-04] MEDS ORDERED: Omeprazole CAP* 20 MG PO SCH (09:00)
[2018-08-04] MEDS ORDERED: Insulin REGULAR(*) 1 UNITS UNIT SUBCUT SCH ×2 (09:00→12:00)
[2018-08-04] MEDS: Lansoprazole susp Kit 3 MG/ML (15 MG = 5 ML) PO SCH (11:20)
[2018-08-04] MEDS ORDERED: Dextrose 50% Syringe 50 ML* 25 GM/50 ML SYRINGE IV PUSH PRN (11:58)
[2018-08-04] MEDS: Insulin LISPRO* 1 UNITS UNIT SUBCUT SCH ×2 (12:29→19:50)
[2018-08-04] MEDS: IMMUNE GLOBULN IV SCH (12:56)
[2018-08-04] MEDS: [UNRECOGNIZED DRUG - OTHER] IV SCH (12:56)
--- NOTE | 2018-08-04 13:43 | ECHO ---
Patient: RANDA AHMADI [facility] Rec#: [id number] : 1950 Date: 08/04/2018 Age: 68y Height: 178 cm / 70.1 in Weight: 90 kg / 198.4 lbs Sex: M BSA: 2.08 Room#: ICU-2 Admit Date#: 08/03/2018 Type: Inpatient Referring: Anthony Rosado NP Reading: Luis Saab MD [employer]her: Shwetha Eng RDCS CC: [place] Pemberton NP Transthoracic Echocardiogram Indication: Cardiac Arrest, pulmonary embolism BP: 136/76 HR: 86 Rhythm: NSR with PACs Findings History: Metastatic non-small cell lung cancer with [employer] metastasis s/p gamma knife 07/12/18. The patient was sedated, intubated, and mechanically ventilated during this study. Technical Comments: The study is technically difficult. The study is technically limited due to patient being intubated and on a ventilator. Completed at 0900. Left Ventricle: The left ventricle is not well visualized. The left ventricular chamber size is decreased. Moderate concentric left ventricular hypertrophy is observed. There is normal left ventricular systolic function. The estimated ejection fraction is 55-60%. Abnormal left ventricular diastolic function is observed. Abnormal left ventricular diastolic filling is observed, consistent with impaired relaxation. Left Atrium: The left atrium is not well visualized. Right Ventricle: The right ventricle is not well visualized. The right ventricular global systolic function is moderately reduced. Right Atrium: The right atrium is not well visualized. Aortic Valve: The aortic valve is trileaflet. The aortic valve leaflets are mildly thickened. There is trace to mild aortic regurgitation. There is no evidence of aortic stenosis. Mitral Valve: The mitral valve leaflets are mildly thickened. There is a trace of mitral regurgitation. There is no evidence of mitral stenosis. Tricuspid Valve: The tricuspid valve structure is not well visualized. Unable to estimate the right ventricular systolic pressure. There is no tricuspid stenosis. Pulmonic Valve: The pulmonic valve structure is not well visualized. There is a trace pulmonic regurgitation. There is no pulmonic stenosis. Pericardium: There is no significant pericardial effusion. A pericardial fat pad is visualized. Aorta: There is mild dilatation of the ascending aorta. The aortic arch is not well visualized. There is mild dilatation of the aortic root. Pulmonary Artery: The main pulmonary artery appears normal. Venous: Unable to accurately comment on the size collapsibility of the IVC as the patient in known to be on mechanical ventilation. Contrast: Definity was used to optimize study. 5 mL of diluted Definity was utilized. Intravenous contrast was used to enhance endocardial border definition. Summary: There was not any prior study for comparison. Conclusions The study is technically limited due to patient being intubated and on a ventilator. Moderate concentric left ventricular hypertrophy is observed. There is normal left ventricular systolic function. The estimated ejection fraction is 55-60%. Abnormal left ventricular diastolic filling is observed, consistent with impaired relaxation. The right ventricular global systolic function is moderately reduced. The aortic valve leaflets are mildly thickened. There is trace to mild aortic regurgitation. There is a trace of mitral regurgitation. A pericardial fat pad is visualized. There is mild dilatation of the ascending aorta. There is mild dilatation of the aortic root. Measurements Name Value Normal Range RVIDd (AP) 2D 3.6 cm (0.9 - 2.6) IVSd (2D) 1.4 cm (0.6 - 1) LVPWd (2D) 1.4 cm (0.6 - 1) LVIDd (2D) 3 cm (3.6 - 5.4) LVIDs (2D) 2.8 cm - LV FS (2D) 5 % (25 - 45) Aortic Annulus 2.2 cm (1.4 - 2.6) Ao root diameter (2D) 3.8 cm (2.1 - 3.5) Ascending Ao 3.7 cm (2.1 - 3.4) LA dimension (AP) 2D 3.8 cm (2.3 - 3.8) Name Value Normal Range MV E-wave Vmax 0.5 m/sec - MV deceleration time 222 msec - MV A-wave Vmax 0.6 m/sec - MV E:A ratio 0.9 ratio - LV septal e' Vmax 0.08 m/sec - LV lateral e' Vmax 0.11 m/sec - LV E:e' septal ratio 6.3 ratio - LV E:e' lateral ratio 4.5 ratio - Name Value Normal Range AV Vmax 1 m/sec - AV VTI 19.2 cm - AV peak gradient 4 mmHg - AV mean gradient 2 mmHg - LVOT Vmax 0.8 m/sec - LVOT VTI 18 cm - LVOT peak gradient 3 mmHg - LVOT mean gradient 2 mmHg - Name Value Normal Range PV Vmax 0.9 m/sec - PV peak gradient 4 mmHg -
[2018-08-04] MEDS: Dexamethasone IV* 4 MG/ML 1 ML (4 MG) IV SLOW PU SCH ×2 (14:03→19:07)
[2018-08-04] MEDS: Chlorhexidine MOUTHWASH 0.12%* 15 ML UDC TOPICAL SCH ×3 (14:03→22:37)
[2018-08-04 20:38] LABS: Free T4 4.15 ng/dL (0.61-1.12)
[2018-08-05] MEDS: Dexamethasone IV* 4 MG/ML 1 ML (4 MG) IV SLOW PU SCH ×4 (00:43→18:31)
[2018-08-05] MEDS: Insulin LISPRO* 1 UNITS UNIT SUBCUT SCH ×4 (00:44→18:31)
[2018-08-05] MEDS: Chlorhexidine MOUTHWASH 0.12%* 15 ML UDC TOPICAL SCH ×6 (02:53→22:05)
[2018-08-05] MEDS: Propofol* 100 ML IV SCH ×5 (05:31→21:20)
[2018-08-05 06:34] LABS: ABS Basophils 0 10^3/ul (0-0.2); ABS Eosinophils 0 10^3/ul (0-0.6); ABS Lymphocytes 0.4 10^3/ul (1.0-4.8); ABS Monocytes 0.4 10^3/ul (0-0.8); ABS Neutrophils 7.9 10^3/ul (1.5-7.7); ABS Nucleated RBC 0 10^3/ul; Eosinophil % 0.1 %; Hematocrit 23 % (42-52); Hemoglobin 8.3 g/dl (14.0-18.0); Lymphocyte % 4.9 %; Mean Corpuscular HGB Conc 36 g/dl (31-36); Mean Corpuscular Hemoglobin 32 pg (27-31); Mean Corpuscular Volume 90 fL (80-94); Mean Platelet Volume 10.3 fL (7.4-10.4); Nucleated Red Blood Cells % 0; Platelet Count 46 10^3/ul (150-450); Red Blood Count 2.59 10^6/ul (4.00-5.40); Red Cell Distribution Width 16 % (10.5-15); White Blood Count 8.8 10^3/ul (3.5-10.8)
[2018-08-05 06:45] LABS: BUN/Creatinine Ratio 43.6 (8-20); Calcium 7.8 mg/dL (8.6-10.3); EGFR Non-African American 79.6 (>60); Magnesium 2.1 mg/dL (1.9-2.7); Potassium 4.3 mmol/L (3.5-5.0)
--- NOTE | 2018-08-05 08:55 | PN ---
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 He also has DVT/PE and IVC filter placed yesterday. In the evening of 08/03 the patient aspirated overnight and had a PEA arrest. He was intubated and brought to the ICU. 08/04: Following commands when sedation turned off. Significant neck swelling. 08/05: Neck swelling improving. Has enlarged thyroid with nodules and TSH low with elevated FT4. NM Thyroid uptake scan ordered for tuesday. Vital Signs: Temp Pulse Resp BP SpO2 FiO2 98.1 F 76 16 142/65 92 30 08/05/18 08:15 08/05/18 08:15 08/05/18 08:00 08/05/18 08:15 08/05/18 08:15 08/05 07:31 Physical Exam: Gen - intubated and sedated Heent - ncat, perrl neck - +swelling cv - s1/s2, no murmur lungs - cta, +crackles abd - soft, nt, nd ext - trace edema neuro - following commands when off sedation Fluid Balance (Past 24 Hours): I= O= Net Intake & Output 08/03/18 08/04/18 08/05/18 08/06/18 06:59 06:59 06:59 06:59 Intake Total 2110 2132.3 40 Output Total 510 2575 20 Balance 1600 -442.7 20 Weight 89.721 kg 92.4 kg Intake: IV Fluids 1790 1073.3 IVIG 868 878 LR 650 NS 272 195.3 Medicated IV 320 740 propofol 210 630 zosyn 110 110 Tube Feeding 229 Tube Feeding Flush Amount 30 NG Tube Irrigate Amount 60 40 Output: Godfrey 510 2575 20 Tube Feeding Residual 0 Amount Wasted Other: Estimated Void Large Date of Last Bowel 08/03/2018 Movement # Voids 1 Labs: Laboratory Results - last 24 hr 08/04/18 08/04/18 08/04/18 01:00 01:00 08:06 WBC RBC Hgb Hct MCV MCH MCHC RDW Plt Count MPV Neut % (Auto) Lymph % (Auto) [place] % (Auto) Eos % (Auto) Baso % (Auto) Absolute Neuts (auto) Absolute Lymphs (auto) Absolute Monos (auto) Absolute Eos (auto) Absolute Basos (auto) Absolute Nucleated RBC Nucleated RBC % Hem Pathologist Commnt Sodium 134 L Potassium 4.2 Chloride 101 Carbon Dioxide 26 Anion Gap 7 BUN 40 H Creatinine 0.99 Est GFR ( Amer) 90.7 Est GFR (Non-Af Amer) 75.0 BUN/Creatinine Ratio 40.4 H Glucose 225 H POC Glucose (mg/dL) 243 H Calcium 8.3 L Phosphorus 5.3 H Magnesium 1.8 L Total Bilirubin 0.80 AST 206 H ALT 406 H Alkaline Phosphatase 94 Troponin I 0.10 H* Total Protein 6.6 Albumin 2.5 L Globulin 4.1 H D Albumin/Globulin Ratio 0.6 L TSH Cancelled Free T4 Cancelled 08/04/18 08/04/18 08/04/18 11:52 18:51 19:34 WBC RBC Hgb Hct MCV MCH MCHC RDW Plt Count MPV Neut % (Auto) Lymph % (Auto) [place] % (Auto) Eos % (Auto) Baso % (Auto) Absolute Neuts (auto) Absolute Lymphs (auto) Absolute Monos (auto) Absolute Eos (auto) Absolute Basos (auto) Absolute Nucleated RBC Nucleated RBC % Hem Pathologist Commnt Sodium Potassium Chloride Carbon Dioxide Anion Gap BUN Creatinine Est GFR ( Amer) Est GFR (Non-Af Amer) BUN/Creatinine Ratio Glucose POC Glucose (mg/dL) 262 H 260 H Calcium Phosphorus Magnesium Total Bilirubin AST ALT Alkaline Phosphatase Troponin I Total Protein Albumin Globulin Albumin/Globulin Ratio TSH 0.00 L Free T4 4.15 H 08/05/18 08/05/18 08/05/18 00:31 06:10 06:10 WBC 8.8 RBC 2.59 L Hgb 8.3 L Hct 23 L MCV 90 MCH 32 H MCHC 36 RDW 16 H Plt Count 46 L MPV 10.3 Neut % (Auto) 90.6 Lymph % (Auto) 4.9 [place] % (Auto) 4.1 Eos % (Auto) 0.1 Baso % (Auto) 0.3 Absolute Neuts (auto) 7.9 H Absolute Lymphs (auto) 0.4 L Absolute Monos (auto) 0.4 Absolute Eos (auto) 0 Absolute Basos (auto) 0 Absolute Nucleated RBC 0 Nucleated RBC % 0 Hem Pathologist Commnt Sodium 135 Potassium 4.3 Chloride 104 Carbon Dioxide 27 Anion Gap 4 BUN 41 H Creatinine 0.94 Est GFR ( Amer) 96.3 Est GFR (Non-Af Amer) 79.6 BUN/Creatinine Ratio 43.6 H Glucose 234 H POC Glucose (mg/dL) 254 H Calcium 7.8 L Phosphorus Magnesium 2.1 Total Bilirubin AST ALT Alkaline Phosphatase Troponin I Total Protein Albumin Globulin Albumin/Globulin Ratio TSH Free T4 08/05/18 06:11 WBC RBC Hgb Hct MCV MCH MCHC RDW Plt Count MPV Neut % (Auto) Lymph % (Auto) [place] % (Auto) Eos % (Auto) Baso % (Auto) Absolute Neuts (auto) Absolute Lymphs (auto) Absolute Monos (auto) Absolute Eos (auto) Absolute Basos (auto) Absolute Nucleated RBC Nucleated RBC % Hem Pathologist Commnt Sodium Potassium Chloride Carbon Dioxide Anion Gap BUN Creatinine Est GFR ( Amer) Est GFR (Non-Af Amer) BUN/Creatinine Ratio Glucose POC Glucose (mg/dL) 245 H Calcium Phosphorus Magnesium Total Bilirubin AST ALT Alkaline Phosphatase Troponin I Total Protein Albumin Globulin Albumin/Globulin Ratio TSH Free T4 Studies: CXR 08/03/18 IMPRESSION: #. Alveolar consolidation at the RIGHT mid to lower lung zone appears increased over the prior exam concerning for pneumonia given the clinical context. CTA Chest 08/03/18 IMPRESSION: 1. SOLITARY PULMONARY EMBOLUS IN THE RIGHT LOWER LOBE BASILAR SEGMENTAL ARTERY. 2. LARGE CAVITARY LESION IN THE LEFT LOWER LOBE, UNCHANGED. 3. SMALL RIGHT PLEURAL EFFUSION, DECREASED. 4. SMALL PERICARDIAL EFFUSION, NEW. 5. ENLARGED MEDIASTINAL OR HILAR LYMPH NODES. SOME OF THE LYMPH NODES IN THE MEDIASTINUM APPEARS SLIGHTLY LESS PROMINENT. LE doppler 08/03/18 IMPRESSION: 1. LIMITED VISUALIZATION OF THE CALF VEINS BILATERALLY WHICH WHICH MAY INDICATE CALF VEIN THROMBOSIS. 2. THERE IS NO EXTENSION INTO OR ABOVE THE POPLITEAL VEINS BILATERALLY CXR 08/03/18 IMPRESSION: #. Bilateral inflammatory infiltrates most prominent in the RIGHT perihilar region with suggestion of interval worsening compared with the earlier exam of the same date however this may in part be atelectasis given supine technique #. The endotracheal tube could be advanced 1.[address] 08/03/18 IMPRESSION: Vasogenic edema within the deep white matter of the parietal lobes, right greater than left. Similar findings were present on prior MR brain from 06/12/2018. Cannot rule out underlying small metastases. Recommend repeat MR brain with and without contrast for better evaluation. Neck CT 08/03/18 IMPRESSION: 1. Streaky soft tissue density versus edema in the deep spaces of the neck surrounding the thyroid gland, of unknown etiology. Possibly reactive in the setting of recent intubation. 2. Prominent right cervical level IV lymph node measuring 2.5 cm. this along with numerous enlarged mediastinal lymph nodes and provided history of lung cancer is concerning for metastatic disease. 3. Small right pleural effusion. 4. Lines and tubes as above. TTE 08/03/18 The study is technically limited due to patient being intubated and on a ventilator. Moderate concentric left ventricular hypertrophy is observed. There is normal left ventricular systolic function. The estimated ejection fraction is 55-60%. Abnormal left ventricular diastolic filling is observed, consistent with impaired relaxation. The right ventricular global systolic function is moderately reduced. The aortic valve leaflets are mildly thickened. There is trace to mild aortic regurgitation. There is a trace of mitral regurgitation. A pericardial fat pad is visualized. There is mild dilatation of the ascending aorta. There is mild dilatation of the aortic root. Thyroid US 08/04/18 IMPRESSION: ENLARGED HETEROGENEOUS THYROID GLAND WITH SMALL NODULES NOTED. Impression: Cardiac arrest (Acute) I46.9 DVT (deep venous thrombosis) (Acute) I82.409 Hyperthyroidism determined by thyroid function test (Acute) E05.90, R94.6 Pulmonary embolism (Acute) I26.99 Respiratory failure (Acute) J96.90 Squamous cell carcinoma of lung, stage IV (Acute) C34.90 Thrombocytopenia (Acute) D69.6 Plan: Neuro - following commands off sedation CV - cardiac arrest - 2/2 aspiration - tte with diastolic dysfunction - supportive care pulm - respiratory failure - 2/2 aspiration - wean vent as tolerated - neck swelling improving - c/w steroids for now - possible extubation tomorrow id - aspiration pna? - afebrile - normal wbc - given 1 dose of zosyn - follow up cultures gi - tube feeds renal - montior i/o - monitor bmp heme - stage 4 SCC of lung, ITP, dvt/pe 1) lung SCC - management per onc - pain control 2) ITP - IVIG x 5 days - monitor cbc 3) dvt/pe - s/p ivc filter - no AC with low platelets Endo - hyperglycemia, hyperthyoird 1) hyperglycemia - 2/2 steroids - check fs, niss 2) hyperthyroid - TSH low, FT4 elevated - nodules on thyroid sono - non-emergent NM thyroid uptake scan ordered for tuesday lines - port, piv ppx - gi/dvt full code Critical Care Time: 55 mins
[2018-08-05] MEDS: Lansoprazole susp Kit 3 MG/ML (15 MG = 5 ML) PO SCH (10:12)
[2018-08-05] MEDS: Albuterol/Ipratropium NEB.SOL* Albuterol 2.5 MG/Ipratropium 0.5 MG 3 ML INH SCH ×4 (11:07→23:09)
[2018-08-06] MEDS: Insulin LISPRO* 1 UNITS UNIT SUBCUT SCH ×4 (01:35→18:25)
[2018-08-06] MEDS: Dexamethasone IV* 4 MG/ML 1 ML (4 MG) IV SLOW PU SCH ×4 (01:35→18:25)
[2018-08-06] MEDS: Chlorhexidine MOUTHWASH 0.12%* 15 ML UDC TOPICAL SCH ×3 (01:35→09:22)
[2018-08-06] MEDS: Albuterol/Ipratropium NEB.SOL* Albuterol 2.5 MG/Ipratropium 0.5 MG 3 ML INH SCH ×6 (02:52→23:41)
[2018-08-06] MEDS: Propofol* 100 ML IV SCH ×2 (05:49→07:45)
[2018-08-06 06:10] LABS: Hematocrit 24 % (42-52); Hemoglobin 8.3 g/dl (14.0-18.0); Mean Corpuscular HGB Conc 35 g/dl (31-36); Mean Corpuscular Hemoglobin 31 pg (27-31); Mean Corpuscular Volume 89 fL (80-94); Mean Platelet Volume 9.3 fL (7.4-10.4); Platelet Count 53 10^3/ul (150-450); Red Blood Count 2.67 10^6/ul (4.00-5.40); Red Cell Distribution Width 16 % (10.5-15); White Blood Count 8.9 10^3/ul (3.5-10.8)
[2018-08-06 06:23] LABS: Albumin 2.1 g/dL (3.2-5.2); Albumin/Globulin Ratio 0.5 (1-3); BUN/Creatinine Ratio 51.8 (8-20); EGFR Non-African American 89.4 (>60); Globulin 4.6 g/dL (2-4); Indirect Bilirubin 0.4 mg/dL (0.3-1.0); Magnesium 2.3 mg/dL (1.9-2.7); Potassium 4.3 mmol/L (3.5-5.0); Total Bilirubin 0.5 mg/dL (0.2-1.0); Total Protein 6.7 g/dL (6.4-8.9)
[2018-08-06 06:30] LABS: ABS Basophils 0 10^3/ul (0-0.2); ABS Eosinophils 0 10^3/ul (0-0.6); ABS Lymphocytes 0.5 10^3/ul (1.0-4.8); ABS Monocytes 0.5 10^3/ul (0-0.8); ABS Neutrophils 7.9 10^3/ul (1.5-7.7); ABS Nucleated RBC 0 10^3/ul; Eosinophil % 0.3 %; Lymphocyte % 5.1 %; Nucleated Red Blood Cells % 0.2
--- NOTE | 2018-08-06 09:05 | PN ---
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 He also has DVT/PE and IVC filter placed yesterday. In the evening of 08/03 the patient aspirated overnight and had a PEA arrest. He was intubated and brought to the ICU. 08/04: Following commands when sedation turned off. Significant neck swelling. 08/05: Neck swelling improving. Has enlarged thyroid with nodules and TSH low with elevated FT4. NM Thyroid uptake scan ordered for tuesday. 08/06: tolerating SBT. Likely extubation today. Vital Signs: Temp Pulse Resp BP SpO2 FiO2 97.5 F 79 17 154/66 94 30 08/06/18 08:15 08/06/18 08:15 08/06/18 08:00 08/06/18 08:15 08/06/18 08:15 08/06 08:00 Physical Exam: Gen - intubated and sedated Heent - ncat, perrl neck - +swelling cv - s1/s2, no murmur lungs - cta, +crackles abd - soft, nt, nd ext - trace edema neuro - following commands when off sedation Fluid Balance (Past 24 Hours): I= O= Net Intake & Output 08/04/18 08/05/18 08/06/18 08/07/18 06:59 06:59 06:59 06:59 Intake Total 2110 2132.3 2856 Output Total 510 2575 1745 175 Balance 1600 -442.7 1111 -175 Weight 89.721 kg 92.4 kg 94.8 kg Intake: IV Fluids 1790 1073.3 237 IVIG 868 878 LR 650 NS 272 195.3 237 Medicated IV 320 740 861 propofol 210 630 861 zosyn 110 110 Tube Feeding 229 1167 Tube Feeding Flush Amount 30 301 NG Tube Irrigate Amount 60 240 Godfrey Irrigate Amount 50 Output: Urine 240 Godfrey 510 2575 1505 175 Tube Feeding Residual 0 Amount Wasted Other: Estimated Void Large Date of Last Bowel 08/03/2018 Movement # Voids 1 Labs: Laboratory Results - last 24 hr 08/05/18 08/05/18 08/06/18 12:37 17:52 01:03 WBC RBC Hgb Hct MCV MCH MCHC RDW Plt Count MPV Neut % (Auto) Lymph % (Auto) [place] % (Auto) Eos % (Auto) Baso % (Auto) Absolute Neuts (auto) Absolute Lymphs (auto) Absolute Monos (auto) Absolute Eos (auto) Absolute Basos (auto) Absolute Nucleated RBC Nucleated RBC % Sodium Potassium Chloride Carbon Dioxide Anion Gap BUN Creatinine Est GFR ( Amer) Est GFR (Non-Af Amer) BUN/Creatinine Ratio Glucose POC Glucose (mg/dL) 304 H 312 H 333 H Calcium Magnesium Total Bilirubin Direct Bilirubin Indirect Bilirubin AST ALT Alkaline Phosphatase Total Protein Albumin Globulin Albumin/Globulin Ratio 08/06/18 08/06/18 08/06/18 05:46 05:46 05:53 WBC 8.9 RBC 2.67 L Hgb 8.3 L Hct 24 L MCV 89 MCH 31 MCHC 35 RDW 16 H Plt Count 53 L MPV 9.3 Neut % (Auto) 88.7 Lymph % (Auto) 5.1 [place] % (Auto) 5.4 Eos % (Auto) 0.3 Baso % (Auto) 0.5 Absolute Neuts (auto) 7.9 H Absolute Lymphs (auto) 0.5 L Absolute Monos (auto) 0.5 Absolute Eos (auto) 0 Absolute Basos (auto) 0 Absolute Nucleated RBC 0 Nucleated RBC % 0.2 Sodium 136 Potassium 4.3 Chloride 105 Carbon Dioxide 27 Anion Gap 4 BUN 44 H Creatinine 0.85 Est GFR ( Amer) 108.1 Est GFR (Non-Af Amer) 89.4 BUN/Creatinine Ratio 51.8 H Glucose 250 H POC Glucose (mg/dL) 256 H Calcium 8.0 L Magnesium 2.3 Total Bilirubin 0.50 Direct Bilirubin 0.10 Indirect Bilirubin 0.4 AST 12 L ALT 139 H Alkaline Phosphatase 56 Total Protein 6.7 Albumin 2.1 L Globulin 4.6 H Albumin/Globulin Ratio 0.5 L Studies: CXR 08/03/18 IMPRESSION: #. Alveolar consolidation at the RIGHT mid to lower lung zone appears increased over the prior exam concerning for pneumonia given the clinical context. CTA Chest 08/03/18 IMPRESSION: 1. SOLITARY PULMONARY EMBOLUS IN THE RIGHT LOWER LOBE BASILAR SEGMENTAL ARTERY. 2. LARGE CAVITARY LESION IN THE LEFT LOWER LOBE, UNCHANGED. 3. SMALL RIGHT PLEURAL EFFUSION, DECREASED. 4. SMALL PERICARDIAL EFFUSION, NEW. 5. ENLARGED MEDIASTINAL OR HILAR LYMPH NODES. SOME OF THE LYMPH NODES IN THE MEDIASTINUM APPEARS SLIGHTLY LESS PROMINENT. LE doppler 08/03/18 IMPRESSION: 1. LIMITED VISUALIZATION OF THE CALF VEINS BILATERALLY WHICH WHICH MAY INDICATE CALF VEIN THROMBOSIS. 2. THERE IS NO EXTENSION INTO OR ABOVE THE POPLITEAL VEINS BILATERALLY CXR 08/03/18 IMPRESSION: #. Bilateral inflammatory infiltrates most prominent in the RIGHT perihilar region with suggestion of interval worsening compared with the earlier exam of the same date however this may in part be atelectasis given supine technique #. The endotracheal tube could be advanced 1.[address] 08/03/18 IMPRESSION: Vasogenic edema within the deep white matter of the parietal lobes, right greater than left. Similar findings were present on prior MR brain from 06/12/2018. Cannot rule out underlying small metastases. Recommend repeat MR brain with and without contrast for better evaluation. Neck CT 08/03/18 IMPRESSION: 1. Streaky soft tissue density versus edema in the deep spaces of the neck surrounding the thyroid gland, of unknown etiology. Possibly reactive in the setting of recent intubation. 2. Prominent right cervical level IV lymph node measuring 2.5 cm. this along with numerous enlarged mediastinal lymph nodes and provided history of lung cancer is concerning for metastatic disease. 3. Small right pleural effusion. 4. Lines and tubes as above. TTE 08/03/18 The study is technically limited due to patient being intubated and on a ventilator. Moderate concentric left ventricular hypertrophy is observed. There is normal left ventricular systolic function. The estimated ejection fraction is 55-60%. Abnormal left ventricular diastolic filling is observed, consistent with impaired relaxation. The right ventricular global systolic function is moderately reduced. The aortic valve leaflets are mildly thickened. There is trace to mild aortic regurgitation. There is a trace of mitral regurgitation. A pericardial fat pad is visualized. There is mild dilatation of the ascending aorta. There is mild dilatation of the aortic root. Thyroid US 08/04/18 IMPRESSION: ENLARGED HETEROGENEOUS THYROID GLAND WITH SMALL NODULES NOTED. Impression: Cardiac arrest (Acute) I46.9 DVT (deep venous thrombosis) (Acute) I82.409 Hyperthyroidism determined by thyroid function test (Acute) E05.90, R94.6 Pulmonary embolism (Acute) I26.99 Respiratory failure (Acute) J96.90 Squamous cell carcinoma of lung, stage IV (Acute) C34.90 Thrombocytopenia (Acute) D69.6 Plan: Neuro - following commands off sedation CV - cardiac arrest - 2/2 aspiration - tte with diastolic dysfunction - supportive care pulm - respiratory failure - 2/2 aspiration - tolerating sbt - plan for extubation today id - aspiration pna? - afebrile - normal wbc - given 1 dose of zosyn - follow up cultures gi - npo until speech eval renal - montior i/o - monitor bmp heme - stage 4 SCC of lung, ITP, dvt/pe 1) lung SCC - management per onc - pain control 2) ITP - IVIG x 2 - monitor cbc - platelets up to 53 today 3) dvt/pe - s/p ivc filter - no AC with low platelets Endo - hyperglycemia, hyperthyoird 1) hyperglycemia - 2/2 steroids - check fs, niss 2) hyperthyroid - TSH low, FT4 elevated - nodules on thyroid sono - non-emergent NM thyroid uptake scan ordered for tuesday lines - port, piv ppx - gi/dvt full code Critical Care Time: 60 mins
[2018-08-06] MEDS: Lansoprazole susp Kit 3 MG/ML (15 MG = 5 ML) PO SCH (09:22)
[2018-08-06] MEDS ORDERED: EPINEPHrine,Rac 2.25% NEB.SOL* 0.5 ML INH ONE (12:52)
[2018-08-07] MEDS: Dexamethasone IV* 4 MG/ML 1 ML (4 MG) IV SLOW PU SCH ×5 (01:08→23:30)
[2018-08-07] MEDS: Insulin LISPRO* 1 UNITS UNIT SUBCUT SCH ×5 (01:08→23:30)
[2018-08-07] MEDS: Albuterol/Ipratropium NEB.SOL* Albuterol 2.5 MG/Ipratropium 0.5 MG 3 ML INH SCH ×5 (03:59→19:38)
[2018-08-07 05:26] LABS: Hematocrit 27 % (42-52); Hemoglobin 9.4 g/dl (14.0-18.0); Mean Corpuscular HGB Conc 35 g/dl (31-36); Mean Corpuscular Hemoglobin 31 pg (27-31); Mean Corpuscular Volume 90 fL (80-94); Mean Platelet Volume 9.1 fL (7.4-10.4); Platelet Count 68 10^3/ul (150-450); Red Blood Count 3.02 10^6/ul (4.00-5.40); Red Cell Distribution Width 16 % (10.5-15); White Blood Count 10.4 10^3/ul (3.5-10.8)
[2018-08-07 05:34] LABS: BUN/Creatinine Ratio 57.3 (8-20); Calcium 8.3 mg/dL (8.6-10.3); EGFR Non-African American 103.3 (>60); Magnesium 2.1 mg/dL (1.9-2.7); Potassium 4.7 mmol/L (3.5-5.0)
[2018-08-07 06:04] LABS: Immature Granulocytes 6 % (0-9); Lymphocytes % 3 %; Metamyelocytes % 1 % (0-2); Monocytes % 4 %; Myelocytes % 1 % (0-1); Neutrophil % 87 %; Nucleated Red Blood Cells/100 1 (0-0)
[2018-08-07 06:06] LABS: ABS Neutrophils 9.7 10^3/ul (1.5-7.7)
--- NOTE | 2018-08-07 10:57 | PN ---
Progress Note - Progress Note Date of Service: 08/07/18 SOAP: Subjective: []He continues to have soar throat and difficulty speaking. He is very weak on left side, more so then before event. Breathing is difficulty, not coughing up much. Not in pain. Family meeting today. Acetaminophen (Tylenol Tab*) 650 mg PO Q4H PRN PRN Reason: FEVER/PAIN Albuterol/Ipratropium (Duoneb (Albuterol 2.5 Mg/Ipratropium 0.5 Mg)) 1 neb INH Q4H ANTIONE Last Admin: 08/07/18 07:37 Dose: 1 neb Dexamethasone Sodium Phosphate (Decadron Iv*) 4 mg IV SLOW PU Q6HR ANTIONE Last Admin: 08/07/18 06:22 Dose: 4 mg Dextrose (D50w Syringe 50 Ml*) 12.5 gm IV PUSH .FOR FS < 60 - SS PRN PRN Reason: FS < 60 Insulin Human Lispro (Humalog*) 0 units SUBCUT Q6HR ANTIONE; Protocol Last Admin: 08/07/18 06:22 Dose: 2 units Lansoprazole (Lansoprazole Susp Kit) 15 mg PO DAILY [facility] Last Admin: 08/06/18 09:22 Dose: 15 mg Ondansetron HCl (Zofran Inj*) 4 mg IV Q4H PRN PRN Reason: NAUSEA/VOMITING Objective: Temp Pulse Resp BP Pulse Ox 98.8 F 85 20 163/73 98 08/07/18 10:15 08/07/18 10:15 08/07/18 10:15 08/07/18 10:15 08/07/18 10:15 HEENT: no thrush or oral lesions. Diffuse edema in neck, no palpable LAD diffuse rhonchi and crackles, no wheezing diffuse echymosis chest wall on right chest wall +BS NT ND Ext +1 edema Neuro - conversational and oriented. 1/[address] chest and neck. There is some diffuse edema, LAD is stable on CT neck and CTA from early June. Pulm mass stable. Thyroid is enlarged CT brain. Maybe less edema but difficult to compare to MRI in June. Swallow evaluation: continued aspiration. Impression: 68 year old with metastatic NSCLC, PD-1+ > 90% of cells. 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 Now admitted with small PE, aspiration and code event, intubated and extubated. Swallow evaluation with compromised airway. Plan: 1. Aspiration/GI. Discussed with patient and family. Will plan G-tube, everyone agrees. Will be helpful if we continue to treat his cancer or for hospice and palliative care. I do not want an NG tube and we are early post event to withdraw all care. Discussed that swallow function will probably never return. GI consulted. 2. CV - cardiac arrest. Likely lasting neuralgic damage. Second to aspiration, echo with normal EF. 3. Pulmonary. Stable at this time, extubated. Suspect continued aspiration. Will continue Zosyn for aspiration pneumonia. 4. Thrombocyopenia. Still question of ITP, if plataltes < 80K consider BMbx, discussed with patient and family. Continue steroids today. 5. Neuro. Progression of defects. Question of watershed infarct during code. Will continue to follow, PT once stable. Re-check MRI brain early next week in follow up to gamma knife. 6. Lung cancer. Immunotherpy is his only option. Discussed with family he may never get there. Discussed QOL goals and hospice. Cancer is stable at this time. Will work through acute events and then make a decision about hospice pending his progress over the next week. 7. DVT/PE. IVC filter and no anticoagulation. 8. BS. Increased on steroids. ISS. 9. Thyriod. Question of secreting nodules. Deffer evaluation for now. Once PEG in, methimazole. 10. He decided to be full code, discussed DNR again and will continue to discuss. time 80 min with patient and family.
[2018-08-07] MEDS: Lansoprazole susp Kit 3 MG/ML (15 MG = 5 ML) PO SCH (11:35)
[2018-08-07] MEDS: LR @ 40 MLS/HR IV SCH (13:25)
--- NOTE | 2018-08-07 17:19 | PN ---
Date of Service: 08/07/18 Critical Care Services: No new complaints. Patient is NPO because of probable aspiration. Vital Signs: Temp Pulse Resp BP SpO2 FiO2 99.3 F 96 26 147/75 95 30 Physical Exam: Gen:Alert, oriented, appears comfortable Lungs:Rhonchi on both sides Extremities:No cyanosis or edema Fluid Balance (Past 24 Hours): 08/07/18 06:59 Intake Total 691.2 Output Total 1838 Balance -1146.8 Weight 199 lb Intake: IV Fluids 241 IVIG LR NS 241 Medicated IV 81.2 propofol 81.2 zosyn Tube Feeding 269 Tube Feeding Flush Amount 100 NG Tube Irrigate Amount Godfrey Irrigate Amount Output: Urine Godfrey 1838 Tube Feeding Residual Amount Wasted Other: Date of Last Bowel Movement Labs: Laboratory Results - last 24 hr 08/06/18 08/07/18 08/07/18 18:13 00:47 05:00 WBC RBC Hgb Hct MCV MCH MCHC RDW Plt Count MPV Neut % (Auto) Lymph % (Auto) [place] % (Auto) Eos % (Auto) Baso % (Auto) Absolute Neuts (auto) Absolute Lymphs (auto) Absolute Monos (auto) Absolute Eos (auto) Absolute Basos (auto) Absolute Nucleated RBC Immature Gran % Neutrophils % Band Neutrophils % Lymphocytes % Monocytes % Metamyelocytes % Myelocytes % Nucleated RBC % Abs Neuts (Manual) Abs Lymphs (Manual) Abs Monocytes (Manual) Nucleated RBCs/100 WBC Normal RBC Morphology Sodium 139 Potassium 4.7 Chloride 107 Carbon Dioxide 30 Anion Gap 2 BUN 43 H Creatinine 0.75 Est GFR ( Amer) 124.9 Est GFR (Non-Af Amer) 103.3 BUN/Creatinine Ratio 57.3 H Glucose 194 H POC Glucose (mg/dL) 193 H 287 H Calcium 8.3 L Magnesium 2.1 08/07/18 08/07/18 08/07/18 05:00 06:05 12:04 WBC 10.4 RBC 3.02 L Hgb 9.4 L Hct 27 L MCV 90 MCH 31 MCHC 35 RDW 16 H Plt Count 68 L MPV 9.1 Neut % (Auto) Not Reportable Lymph % (Auto) Not Reportable [place] % (Auto) Not Reportable Eos % (Auto) Not Reportable Baso % (Auto) Not Reportable Absolute Neuts (auto) Not Reportable Absolute Lymphs (auto) Not Reportable Absolute Monos (auto) Not Reportable Absolute Eos (auto) Not Reportable Absolute Basos (auto) Not Reportable Absolute Nucleated RBC Not Reportable Immature Gran % 6 Neutrophils % 87 Band Neutrophils % 4 Lymphocytes % 3 Monocytes % 4 Metamyelocytes % 1 Myelocytes % 1 Nucleated RBC % Not Reportable Abs Neuts (Manual) 9.7 H Abs Lymphs (Manual) 0.3 L Abs Monocytes (Manual) 0.4 Nucleated RBCs/100 WBC 1 H Normal RBC Morphology Normal Sodium Potassium Chloride Carbon Dioxide Anion Gap BUN Creatinine Est GFR ( Amer) Est GFR (Non-Af Amer) BUN/Creatinine Ratio Glucose POC Glucose (mg/dL) 196 H 234 H Calcium Magnesium Studies: Swallowing evaluation showed unequivocal evidence of aspiration. Nutrition: NPO Impression: Platelet count rising. Unable to feed because of problem with aspiration. Plan: Scheduled for PEG tomorrow. Critical Care Time: 40 minutes
[2018-08-07] MEDS ORDERED: LORazepam INJ* 2 MG/ML 1 ML VIAL IV PUSH PRN (19:13)
--- NOTE | 2018-08-07 19:28 | CONS ---
CONSULTATION REPORT: DATE OF CONSULT: 08/07/18 INDICATION: Dysphagia, need for PEG tube. HISTORY OF PRESENT ILLNESS: Mr. 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 He underwent a Gamma Knife radiation in the middle of June was going to start chemotherapy; however, he has been dealing with thrombocytopenia. He did have a recent port that was placed and there was extensive bruising on his chest wall on the right side. The patient was admitted on the 08/03/18 for weakness. On 08/04/18, he began chocking on food and had a PEA arrest. He was intubated and had a return of spontaneous circulation with 2 rounds of epi. He did develop an aspiration pneumonia. He is currently being treated for this. He then had a swallowing evaluation today that unfortunately he did not pass and his oncologist called for a PEG tube. The patient is interested in pursuing a PEG tube. He is interested in maintaining a full code status and being very aggressive with his treatment. PAST MEDICAL HISTORY: Significant for metastatic non-small lung cancer, SOIL FIELD TECHNICIAN mets, chronic back pain. PAST SURGICAL HISTORY: Includes ankle surgery, back surgery, sinus surgery. MEDICATIONS AT HOME: Include: 1. Dexamethasone. 2. Glyburide. 3. Multivitamin. 4. Omeprazole. 5. Trazodone. 6. Ambien. FAMILY HISTORY: Acoustic neuroma. SOCIAL HISTORY: He smoked for greater than 50 years. He quit about a year ago. REVIEW OF SYSTEMS: Twelve systems were reviewed, other than that mentioned in the HPI were unremarkable. PHYSICAL EXAM: Temperature is 99.1, blood pressure is 167/85, pulse is 106. General: A well-appearing male, alert, oriented, somewhat altered speech. HEENT: Mucous membranes are moist without lesions, ulcers, or exudate. Neck is supple. Trachea is midline. Heart: Regular rate and rhythm. Lungs: Coarse breath sounds bilaterally. He is on 4 L of oxygen currently. Abdomen: Positive bowel sounds. Soft, nontender, nondistended. No scars in the left upper quadrant. Skin is warm and dry. He does have a large ecchymotic bruise on his chest wall from the port placement. DIAGNOSTIC STUDIES/LAB DATA: White count is 10.4; hemoglobin is 9.4; platelet count of 68, this has come up from 53, 46, 31, 33, and 38. INR is 1.09. ASSESSMENT AND PLAN: This is a pleasant 68-year-old gentleman who unfortunately has SOIL FIELD TECHNICIAN metastases from metastatic non-small cell lung cancer. His swallowing has been compromised according to the oncologist likely secondary to the Gamma Knife irradiation and/or the metastases. He unfortunately did not pass a swallowing evaluation. He and his oncology team are interested in pursuing a PEG tube. This is complicated by 2 factors. The first is his thrombocytopenia. His platelet count has come up to 68. He is receiving IVIg for ITP. Additionally, he does have an aspiration pneumonia. He is being treated for this. His oxygen requirement is still somewhat generous. I had a discussion with the patient regarding the procedure. I also discussed with him that the right limiting step would his oxygenation status and his thrombocytopenia. We will tentatively plan on placing the PEG tube tomorrow as long as his platelet count is high enough and his oxygen level is improving. The procedure was discussed with him. I discussed the complications such as bleeding, infection, sedation complications. The patent and family members are understanding and agreeable. [id number]/[facility] #: [id number] MTDD
[2018-08-07] MEDS ORDERED: Amiodarone 150 MG IVPREMIX* 150 MG/100 ML BAG IV ONE (20:12)
--- NOTE | 2018-08-07 20:22 | PN ---
Progress Note - Progress Note Date of Service: 08/07/18 Note: Patient developed acute-onset AFib while sleeping - when awoken, patient denies chest pain, SOB, and appears comfortable. There were no signs of CHF on the physical exam Imp- acute atrial fribrillation (no prior episodes) Plan - serial troponins, and I will use amiodarone for rate control and possible chemical cardioversion. Since this is the first episode of AFib, I will hold on anticoagulation for now.
[2018-08-07] MEDS ORDERED: Amiodarone 360 MG IVPREMIX* 360 MG/200 ML BAG IV ONE (20:30)
[2018-08-07] MEDS ORDERED: traZODone TAB* 100 MG PO SCH (21:00)
[2018-08-07] MEDS ORDERED: Levalbuterol 1.25MG/0.5ML NEB ONE (23:42)
[2018-08-07] MEDS: Levalbuterol 1.25MG/0.5ML NEB INH PRN (23:45)
[2018-08-08] MEDS: Albuterol/Ipratropium NEB.SOL* Albuterol 2.5 MG/Ipratropium 0.5 MG 3 ML INH SCH ×4 (01:17→19:29)
[2018-08-08] MEDS ORDERED: Amiodarone 360 MG IVPREMIX* 360 MG/200 ML BAG IV SCH (02:30)
[2018-08-08] MEDS: LR @ 40 MLS/HR IV SCH ×2 (02:40→16:24)
[2018-08-08] MEDS: Insulin LISPRO* 1 UNITS UNIT SUBCUT SCH ×4 (05:41→23:31)
[2018-08-08] MEDS: Dexamethasone IV* 4 MG/ML 1 ML (4 MG) IV SLOW PU SCH ×4 (05:41→23:37)
[2018-08-08 05:47] LABS: Hematocrit 28 % (42-52); Hemoglobin 9.6 g/dl (14.0-18.0); Mean Corpuscular HGB Conc 35 g/dl (31-36); Mean Corpuscular Hemoglobin 31 pg (27-31); Mean Corpuscular Volume 90 fL (80-94); Mean Platelet Volume 8.8 fL (7.4-10.4); Platelet Count 73 10^3/ul (150-450); Red Blood Count 3.09 10^6/ul (4.00-5.40); Red Cell Distribution Width 16 % (10.5-15); White Blood Count 8.4 10^3/ul (3.5-10.8)
[2018-08-08 06:12] LABS: ABS Basophils 0 10^3/ul (0-0.2); ABS Eosinophils 0 10^3/ul (0-0.6); ABS Lymphocytes 0.4 10^3/ul (1.0-4.8); ABS Monocytes 0.4 10^3/ul (0-0.8); ABS Neutrophils 7.5 10^3/ul (1.5-7.7); ABS Nucleated RBC 0 10^3/ul; Eosinophil % 0.2 %; Lymphocyte % 5.2 %; Nucleated Red Blood Cells % 0.3
[2018-08-08] MEDS: Lansoprazole susp Kit 3 MG/ML (15 MG = 5 ML) PO SCH (10:59)
--- NOTE | 2018-08-08 13:13 | CONS ---
CARDIOLOGY CONSULTATION NOTE: DATE OF CONSULT: 08/08/18 INDICATION FOR CONSULTATION: Atrial fibrillation. HISTORY OF PRESENT ILLNESS: The patient is a 68-year-old gentleman with metastatic non-small cell lung cancer. He was admitted to the hospital after aspiration pneumonia. The patient is potentially being scheduled for a PEG tube placement today. Last night, the patient went into the rapid atrial fibrillation. The patient was asymptomatic. The patient did have an echocardiogram on 08/04/18 which showed normal LV size with systolic function, ejection fraction of 55%. No significant valvular abnormalities. In speaking with the patient this morning, he has no complaints. He denies any palpitations. He denies any shortness of breath. He denies any lightheadedness , dizziness. The patient has no history of atrial fibrillation. The patient has been in the intensive care unit and in the hospital since 07/21/18 and no arrhythmias have been detected. PAST MEDICAL HISTORY: Significant for metastatic lung cell cancer. He has had brain mets with gamma knife radiation, history of hyperglycemia, chronic back pain. PAST SURGICAL HISTORY: Ankle surgery, back surgery. He recently had a PowerPort placement in his right upper chest. OUTPATIENT MEDICATIONS: 1. Dexamethasone 4 mg twice a day. 2. Glyburide 2.5 mg a day. 3. Multivitamin a day. 4. Omeprazole 20 mg a day. 5. Trazodone 5 mg a day. 6. Ambien 10 mg a day. ALLERGIES: No known drug allergies. FAMILY HISTORY: No family history of early coronary artery disease or cardiac arrhythmias. SOCIAL HISTORY: He is a long-term smoker, quit about a year ago. He is . He lives at home with his . He is retired from the [employer]. REVIEW OF SYSTEMS: Negative for fevers or chills. Negative for changes in bowel or bladder habits. Negative for change in weight. Other 12-point review is unremarkable. PHYSICAL EXAM: Height is 5 feet 10 inches, weight 199 pounds. Temperature 98.8 , heart rate is 130, blood pressure 128/80, respiratory rate is 21, oxygen saturation 95% on 2 L. Sclerae anicteric. Oropharynx is pink without erythema. Carotids are 2+ without bruits. JVD is normal. Thyroid is normal. Cardiac Exam: S1, S2 without any murmurs, rubs, or gallops. PMI is normal. Lungs are clear to auscultation. He has no dullness to percussion. Right upper chest has ecchymosis, but no erythema from his PowerPort implantation. Abdomen is soft, nontender, nondistended. Minimal bowel sounds. Extremities show 1+ edema. He has 2+ pulses in his dorsalis pedis, popliteal, and radial. The patient is awake, alert and oriented. He moves all 4 extremities equally. DIAGNOSTIC STUDIES/LAB DATA: White count 8.4, hemoglobin 10, hematocrit 28, platelet count 73,000. Chemistries within normal limits. BUN 43, creatinine 0.7. Troponin level 0.05 and stable. EKG shows atrial fibrillation with nonspecific T wave abnormalities. IMPRESSION: This is a 68-year-old gentleman with metastatic lung cancer who went into atrial fibrillation last night in the intensive care unit. The patient was essentially asymptomatic. The patient had a recent echocardiogram which showed normal LV size with systolic function and no significant valvular abnormalities. The issues at this point are rate control and anticoagulation. The patient was started on amiodarone and beta-jeri for rate control. The patient is scheduled for a PEG tube placement later this afternoon. After that, Dr. Lackey is hesitant to use any anticoagulation for the next 48 hours because of his low platelet counts. It is my recommendation the patient undergo cardioversion today prior to his PEG tube placement. That way he will back in normal sinus rhythm. The patient has been in atrial fibrillation less than 12 hours, thus we can avoid anticoagulation. The patient has been on amiodarone, so it is likely that he will maintain normal sinus rhythm with amiodarone in the system. Further recommendations pending results of his cardioversion. [id number]/[facility] #: [id number] [facility]
[2018-08-08] MEDS ORDERED: Midazolam* 1 MG/ML 10 ML VIAL (10 MG) ONE (14:51)
[2018-08-08] MEDS ORDERED: Naloxone* 0.4 MG/ML 1 ML VIAL ONE (14:51)
[2018-08-08] MEDS ORDERED: fentaNYL* 50 MCG/ML 2 ML VIAL (100 MCG VIAL) ONE (14:51)
[2018-08-08] MEDS ORDERED: Flumazenil* 0.1 MG/ML 5 ML MDV ONE (14:52)
[2018-08-08] MEDS ORDERED: ceFAZolin 2 GM PREMIX in ORs 2 GM/50 ML BAG IVPB ONE (14:53)
--- NOTE | 2018-08-08 16:41 | PN ---
Date of Service: 08/08/18 Critical Care Services: Patient had 2 procedures today - D/C cardioversion and placement of PEG tube - tolerated both procedures well, and is now resting in bed. Vital Signs: Temp Pulse Resp BP SpO2 FiO2 98.8 F 89 27 139/68 95 30 Physical Exam: Gen:alert and oriented Lungs: coarse rhonchi both sides Abdomen:PEG tube in place Extremities: No cyanosis or edema Fluid Balance (Past 24 Hours): 08/06/18 08/07/18 08/08/18 08/09/18 06:59 06:59 06:59 06:59 Intake Total 2856 691.2 1454 818 Output Total 1745 1838 1500 620 Balance 1111 -1146.8 -46 198 Weight 208 lb 15.971 oz 199 lb 1.239 oz Intake: IV Fluids 160 496 4678 669 LR 1218 669 NS 237 241 Medicated IV 861 81.2 236 149 CC - Amiodarone 236 149 propofol 861 81.2 Tube Feeding 1167 269 Tube Feeding Flush Amount 301 100 NG Tube Irrigate Amount 240 Godfrey Irrigate Amount 50 Output: Urine 240 Godfrey 1505 1838 1500 620 Labs: 08/07/18 08/07/18 08/07/18 18:13 20:45 23:17 WBC RBC Hgb Hct MCV MCH MCHC RDW Plt Count MPV Neut % (Auto) Lymph % (Auto) Stokes % (Auto) Eos % (Auto) Baso % (Auto) Absolute Neuts (auto) Absolute Lymphs (auto) Absolute Monos (auto) Absolute Eos (auto) Absolute Basos (auto) Absolute Nucleated RBC Nucleated RBC % POC Glucose (mg/dL) 216 H Troponin I 0.06 H* 0.05 H* 08/07/18 08/08/18 08/08/18 23:20 02:25 05:30 WBC 8.4 RBC 3.09 L Hgb 9.6 L Hct 28 L MCV 90 MCH 31 MCHC 35 RDW 16 H Plt Count 73 L MPV 8.8 Neut % (Auto) 89.1 Lymph % (Auto) 5.2 Stokes % (Auto) 5.0 Eos % (Auto) 0.2 Baso % (Auto) 0.5 Absolute Neuts (auto) 7.5 Absolute Lymphs (auto) 0.4 L Absolute Monos (auto) 0.4 Absolute Eos (auto) 0 Absolute Basos (auto) 0 Absolute Nucleated RBC 0 Nucleated RBC % 0.3 POC Glucose (mg/dL) 228 H Troponin I 0.05 H* 08/08/18 08/08/18 05:33 11:57 WBC RBC Hgb Hct MCV MCH MCHC RDW Plt Count MPV Neut % (Auto) Lymph % (Auto) Stokes % (Auto) Eos % (Auto) Baso % (Auto) Absolute Neuts (auto) Absolute Lymphs (auto) Absolute Monos (auto) Absolute Eos (auto) Absolute Basos (auto) Absolute Nucleated RBC Nucleated RBC % POC Glucose (mg/dL) 259 H 243 H Troponin I Studies: CXR: No infiltrates. ECG (post-cardioversion: NSR Nutrition: NPO Impression: Clinically stable Plan: 1. D/C IV amiodarone. 2. Start gastrostomy feedings tomorrow Critical Care Time: 40 minutes
[2018-08-08] MEDS ORDERED: Insulin LISPRO* 1 UNITS UNIT SUBCUT ONE (18:48)
--- NOTE | 2018-08-08 20:19 | CARD ---
CC: Dr. Camila Jasmine * CARDIOVERSION REPORT: DATE OF PROCEDURE: 08/08/18 - ROOM #ICU-02 PROCEDURE: Cardioversion. INDICATION: Atrial fibrillation. The patient is a 68-year-old gentleman with a history of metastatic lung cancer , was in the Intensive Care Unit because of aspiration pneumonia, who was found to go under atrial fibrillation last night. The patient was started on an amiodarone drip for heart rate control. Cardioversion was recommended. DESCRIPTION OF PROCEDURE: The patient was in a fasting state. Informed consent had been obtained prior to the procedure. All labs were reviewed. The patient has not been on anticoagulation because of pending PEG tube placement. The patient has been in atrial fibrillation less than 12 hours. The patient was given 4 mg of Versed and 50 mcg of fentanyl for conscious sedation. The patient was cardioverted with 150 joules of synchronized biphasic energy. The patient converted to normal sinus rhythm. The patient tolerated the procedure well with no complications. [id number]/[facility] #: [id number] MTDD
[2018-08-08] MEDS: Levalbuterol 1.25MG/0.5ML NEB INH PRN (23:10)
[2018-08-08] MEDS: LORazepam INJ* 2 MG/ML 1 ML VIAL IV PUSH PRN (23:38)
[2018-08-09] MEDS: Albuterol/Ipratropium NEB.SOL* Albuterol 2.5 MG/Ipratropium 0.5 MG 3 ML INH SCH ×4 (01:10→19:45)
[2018-08-09] MEDS: Insulin LISPRO* 1 UNITS UNIT SUBCUT SCH ×4 (06:36→23:36)
[2018-08-09] MEDS: Dexamethasone IV* 4 MG/ML 1 ML (4 MG) IV SLOW PU SCH ×3 (06:40→23:13)
--- NOTE | 2018-08-09 08:12 | PRO ---
DATE: 08/08/18 - ROOM #441 REFERRING PHYSICIAN: Jany Varela * PROCEDURE: Upper gastrointestinal endoscopy with insertion of percutaneous gastrostomy tube. INDICATION: This 68-year-old man was admitted to the ICU after a cardiac arrest following respiratory obstruction from eating a sandwich. He was resuscitated. Subsequently, he failed a swallowing function study. In the ICU, he has been stable as regards to oxygenation and his chest x-ray was improved today from minimal abnormality. He, however, went into atrial fibrillation last night. Dr. Carvalho from Cardiology was consulted and amiodarone has been given via drip, then an hour ago, he was cardioverted and now he is in sinus rhythm. From the cardioversion, he is still sedated. Informed consent had been obtained from the patient and family pre- cardioversion. There was also discussion regarding his platelet count, which was 75,000 today, up from 68, up from the 30s two weeks ago when he had a port placed on the right side. 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 The underlying problem is non-small cell lung cancer with brain metastasis, status post CyberKnife. ENDOSCOPIST: Dr. Murphy. MEDICATIONS: Additional 1 mg IV midazolam and 2 g Keflin IV immediately pre- PEG. FINDINGS: He was positioned supine, head up 20 degrees. All vitals were monitored and he was suctioned to facilitate safe sedation. He is in sinus rhythm. Additional midazolam was given to keep him sedated, but with stable respiratory rate. EGD: Larynx - Much retained secretions that were not being swallowed. Esophagus - Easily entered and the mucosa is normal in the upper, mid, and lower esophagus, although there is a sense of edema. There are no peptic erosions. There is a small hiatal hernia, though no stricture. Stomach - Erythematous mucosa, but no ulcer or bleeding. There are no masses or polyps. Transillumination in the upper midline is readily obtained and finger indentation is readily seen. Duodenum - The pylorus, bulb, and second through fourth portions appeared normal. Scope was withdrawn to the mid-gastric body and landmarks were confirmed again with full insufflation, transillumination and finger indentation. Lidocaine 1% was then put in subcutaneously and then deep, aiming towards the gastric lumen and this was achieved. A 12 to 13 mm vertical incision was then made through this area. The standard trocar was then inserted into the gastric lumen, grasped with a snare and the wire pulled out through the mouth and the PEG tube completed in a standard fashion. Insertional depth was about 4 cm and the bolster was applied at about 4.5 and there was free rotation of the PEG. IMPRESSION: 1. Mild nonspecific gastritis with erythema. 2. Small hiatal hernia. 3. Laryngeal dysfunction. 4. Placement of percutaneous endoscopic gastrostomy tube - no complications and this can be used in the morning. There was no sense of excess bleeding. [id number]/[facility] #: [id number] MTDD
--- NOTE | 2018-08-09 09:39 | PN ---
Date of Service: 08/09/18 Critical Care Services: No apparent complications from PEG placement and cardioversion yesterday. Had an uneventful evening. Vital Signs: Temp Pulse Resp BP SpO2 FiO2 98.4 F 101 22 162/66 89 30 NOTE: Cardiac rhythm is sinus. Physical Exam: Gen:alert and oriented Lungs: Coarse rhonchi on both sides Cardiac: Reg rhythm Abdomen: Not distended. Extremities: No cyanosis or edema Fluid Balance (Past 24 Hours): 08/08/18 08/09/18 06:59 06:59 Intake Total 1454 1579 Output Total 1500 1400 Balance -46 179 Weight 189 lb Intake: IV Fluids 1218 1430 LR 1218 1430 NS Medicated IV 236 149 CC - Amiodarone 236 149 propofol Oral 0 Tube Feeding Tube Feeding Flush Amount Output: Urine 60 Godfrey 1500 1340 Labs: 08/08/18 08/08/18 08/08/18 11:57 18:03 23:28 POC Glucose (mg/dL) 243 H 228 H 216 H 08/09/18 06:33 POC Glucose (mg/dL) 231 H Studies: None today Nutrition: NPO Impression: 1. No return to afib 2. PEG placement without complication Plan: 1. Start tube feedings with Glucerna (70 cc/hr) 2. Management of paroxysmal AFib per cardiology 3. Transfer out of ICU today. 4. Await platelet count this AM. Critical Care Time: 30 minutes
[2018-08-09 10:07] LABS: Hematocrit 28 % (42-52); Hemoglobin 9.9 g/dl (14.0-18.0); Mean Corpuscular HGB Conc 35 g/dl (31-36); Mean Corpuscular Hemoglobin 31 pg (27-31); Mean Corpuscular Volume 89 fL (80-94); Mean Platelet Volume 8.9 fL (7.4-10.4); Platelet Count 77 10^3/ul (150-450); Red Blood Count 3.18 10^6/ul (4.00-5.40); Red Cell Distribution Width 16 % (10.5-15); White Blood Count 10.1 10^3/ul (3.5-10.8)
[2018-08-09 10:20] LABS: BUN/Creatinine Ratio 75.4 (8-20); Calcium 8.4 mg/dL (8.6-10.3); EGFR Non-African American 131.1 (>60); Magnesium 1.9 mg/dL (1.9-2.7); Potassium 4.3 mmol/L (3.5-5.0)
[2018-08-09] MEDS: Lansoprazole susp Kit 3 MG/ML (15 MG = 5 ML) PO SCH ×2 (12:09→12:32)
[2018-08-09] MEDS: LORazepam INJ* 2 MG/ML 1 ML VIAL IV PUSH PRN (23:26)
[2018-08-10] MEDS: Albuterol/Ipratropium NEB.SOL* Albuterol 2.5 MG/Ipratropium 0.5 MG 3 ML INH SCH ×4 (01:52→20:05)
[2018-08-10] MEDS ORDERED: Furosemide IV* 10 MG/ML 2 ML VIAL (20 MG) IV SLOW PU ONE ×2 (02:30→16:22)
[2018-08-10] MEDS: Insulin LISPRO* 1 UNITS UNIT SUBCUT SCH ×3 (06:03→17:07)
[2018-08-10] MEDS: Lansoprazole susp Kit 3 MG/ML (15 MG = 5 ML) PO SCH (09:59)
--- NOTE | 2018-08-10 10:40 | PN ---
Progress Note - Progress Note Date of Service: 08/10/18 SOAP: Subjective: [Transferred out of ICU yesterday. Doing well, started with PT yesterday. Tolerating tube feedings well.] Objective: [ Laboratory Results - last 24 hr 08/09/18 08/09/18 08/09/18 11:41 16:45 23:11 POC Glucose (mg/dL) 206 H 212 H 295 H 08/10/18 05:04 POC Glucose (mg/dL) 335 H Acetaminophen (Tylenol Tab*) 650 mg PO Q4H PRN PRN Reason: FEVER/PAIN Albuterol/Ipratropium (Duoneb (Albuterol 2.5 Mg/Ipratropium 0.5 Mg)) 1 neb INH [id number] AWAKE [facility] Last Admin: 08/10/18 07:37 Dose: 1 neb Dexamethasone Sodium Phosphate (Decadron Iv*) 4 mg IV SLOW PU Q12H [facility] Last Admin: 08/09/18 23:13 Dose: 4 mg Dextrose (D50w Syringe 50 Ml*) 12.5 gm IV PUSH .FOR FS < 60 - SS PRN PRN Reason: FS < 60 Insulin Human Lispro (Humalog*) 0 units SUBCUT Q6HR [facility]; Protocol Last Admin: 08/10/18 06:03 Dose: 8 units Lansoprazole (Lansoprazole Susp Kit) 15 mg PO 0900 [facility] Last Admin: 08/10/18 09:59 Dose: 15 mg Levalbuterol HCl (Xopenex 1.25 Mg/0.5 Ml Neb.Windy*) 1.25 mg INH Q2H PRN PRN Reason: SOB/WHEEZING Last Admin: 08/08/18 23:10 Dose: 1.25 mg Lorazepam (Ativan Inj*) 1 mg IV PUSH BEDTIME PRN PRN Reason: INSOMNIA Last Admin: 08/09/18 23:26 Dose: 1 mg Ondansetron HCl (Zofran Inj*) 4 mg IV Q4H PRN PRN Reason: NAUSEA/VOMITING Vital Signs: Temp Pulse Resp BP Pulse Ox 97.2 F 113 18 110/81 98 08/10/18 07:20 08/10/18 07:40 08/10/18 08:00 08/10/18 07:20 08/10/18 07:40 Exam Gen: 68 yo male in NAD HEENT: hoarse voice, dry MM CV: tachycardic, no murmurs Resp: few rhonchi Abd: PEG in place with tube feeding running, hypoactive BS Ext: trace edema Neuro: L arm weakness with tremor] Assessment: [68 yo male with metastatic NSCLC s/p gammaknife admitted with progressive weakness found to have small PE with thrombocytopenia of unclear etiology. Hospital course c/b choking event inducing cardiopulmonary arrest. Now extubated and moved out of ICU.] Plan: [1. s/p cardiopulmonary arrest with residual neurologic deficit including severe dysphagia and L sided weakness - failed swallow evaluation - PEG tube placed, tube feedings started 08/09 - profound L sided weakness (L side dominant) - PT started 2. PE - IVC filter in place - can start Lovenox now that platelets have recovered and s/p PEG placement 3. Thrombocytopenia - s/p IVIG x 2 doses, no dramatic response - unclear etiology, spontaneously improving -77K today 4. Hyperthyroidism - TSH undetectable - noted tachycardia, likely contributing to weakness - start propanolol to block peripheral effects, start at 10mg tid, can up titrate from there if endocrinology agrees - requested endocrinology consultation 5. Aspiration PNA - completed abx 6. Metastatic NSCLC - s/p gammaknife for brain mets - cont dexamethasone 4 mg bid - PDL 1 positive - treatment plan will depend on recovery from this acute event Dispo: will require rehab, consider PMRU v KARTHIK ]
[2018-08-10] MEDS: Dexamethasone IV* 4 MG/ML 1 ML (4 MG) IV SLOW PU SCH (11:48)
[2018-08-10] MEDS: Enoxaparin(*) 80 MG/0.8 ML SYR SUBCUT SCH (11:48)
--- NOTE | 2018-08-10 12:32 | CONSULT ---
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 Patient remains critically ill, but is hyperthyroid by labs and on exam. Thyroid ultrasound and other autoimmune phenomena consistent with Graves'. Other etiologies include acute thyroiditis, which can be difficult to distinguish from Graves' in this setting. He is already receiving high-dose systemic steroid and beta-jeri but would benefit from anti-thyroid medication (methimazole) this admission. Iodine not likely to be helpful after recent contrast studies. Other option includes cholestyramine 4 g orally four times daily. PLAN: - check LFTs, thyrotropin receptor antibody (TRAb), free T3 - if AST/ALT <2X ULN, start methimazole 20mg PO/VT Q24H - increase propranolol to 20mg Q6H to achieve adequate control of heart rate - continue dexamethasone - repeat free T4 and free T3 in 2-3 days - reduce methimazole to 10mg daily if free T3 improving or LFTs worsening - call with questions SUBJECTIVE: History of Present Illness: 68 yo M with metastatic non-small cell lung cancer diagnosed 2018, s/p cranial radiation in June 2018, also found to have thrombocytopenia of autoimmune origin, s/p dexamethasone treatment with steroid- induced diabetes, admitted 08/03/18 with dyspnea, weakness and failure to thrive. Found to have PE on presention and is s/p filter. Had acute choking with PEA arrest this admission; admitted to ICU for respiratory support and had a PEG tube placed this admission. During routine labs, he was found to have suppressed TSH and elevated free T4. History is limited by patient dyspnea. No known thyroid disease. Generally healthy prior to recent diagnosis. No relevant family history. Past Medical History: 1. NSCLC with EMERGENCY SPECIALIST metastases status post gamma knife on 07/12/18 2. Steroid-induced hyperglycemia 3. Chronic back pain Medications Prior to Admission: Medication Instructions Recorded Confirmed Type Dexamethasone TAB* [Decadron TAB*] 4 mg PO BID 06/29/18 08/03/18 History Multivit-Min/FA/Lycopen/Lutein 1 each PO DAILY 06/29/18 08/03/18 History [Centrum Silver Men Tablet] Omeprazole CAP* [Prilosec CAP* 20 20 mg PO DAILY 08/03/18 08/03/18 History MG] Zolpidem Tartrate 10 mg PO BEDTIME PRN 08/03/18 08/03/18 History glyBURIDE [Glyburide] 2.5 mg PO DAILY 08/03/18 08/03/18 History traZODone TAB* [Desyrel TAB*] 50 mg PO BEDTIME 08/03/18 08/03/18 History Inpatient Medications: Acetaminophen (Tylenol Tab*) 650 mg PO Q4H PRN PRN Reason: FEVER/PAIN Last Admin: 08/10/18 21:32 Dose: 650 mg Albuterol/Ipratropium (Duoneb (Albuterol 2.5 Mg/Ipratropium 0.5 Mg)) 1 neb INH [id number] [facility]WA[facility] Last Admin: 08/10/18 20:05 Dose: 1 neb Dexamethasone Sodium Phosphate (Decadron Iv*) 4 mg IV SLOW PU Q12H ANTIONE Last Admin: 08/10/18 11:48 Dose: 4 mg Dextrose (D50w Syringe 50 Ml*) 12.5 gm IV PUSH .FOR FS < 60 - SS PRN PRN Reason: FS < 60 Enoxaparin Sodium (Lovenox(*)) 80 mg SUBCUT Q12H ANTIONE Last Admin: 08/10/18 11:48 Dose: 80 mg Piperacillin Sod/Tazobactam (Sod 3.375 gm/ Sodium Chloride) 100 mls @ 200 mls/ hr IVPB ONCE ONE Stop: 08/10/18 22:29 Last Admin: 08/10/18 22:18 Dose: 200 mls/hr Insulin Human Lispro (Humalog*) 0 units SUBCUT Q6HR ANTIONE; Protocol Last Admin: 08/10/18 17:07 Dose: 4 units Lansoprazole (Lansoprazole Susp Kit) 15 mg PO 0900 ANTIONE Last Admin: 08/10/18 09:59 Dose: 15 mg Levalbuterol HCl (Xopenex 1.25 Mg/0.5 Ml Neb.Windy*) 1.25 mg INH Q2H PRN PRN Reason: SOB/WHEEZING Last Admin: 08/10/18 15:50 Dose: 1.25 mg Lorazepam (Ativan Inj*) 1 mg IV PUSH BEDTIME PRN PRN Reason: INSOMNIA Last Admin: 08/09/18 23:26 Dose: 1 mg Morphine Sulfate (Morphine Vial*) 5 mg IV Q4H PRN PRN Reason: Pain/SOB Last Admin: 08/10/18 21:32 Dose: 5 mg Ondansetron HCl (Zofran Inj*) 4 mg IV Q4H PRN PRN Reason: NAUSEA/VOMITING Pharmacy Profile Note (Scopolamine Patch Remove*) 1 note PATCH OFF Q72H ANTIONE Propranolol HCl (Inderal Tab*) 10 mg PO TID ANTIONE Last Admin: 08/10/18 21:16 Dose: 10 mg Scopolamine (Transderm-Scop 1.5 Mg Patch*) 1 patch TRANSDERM Q72H ANTIONE Last Admin: 08/10/18 17:08 Dose: 1 patch Sodium Chloride (Hyper-John 7%*) 4 ml INH .SEE ORDERS PRN PRN Reason: WHEEZING Last Admin: 08/10/18 20:05 Dose: 4 ml Allergies/Intolerances: NKDA Social History: Lives with . 60 PY history of smoking. Retired. Family History: Non-contributory. Review of Systems: Unable to obtain. OBJECTIVE: Vital Signs: Temp Pulse Resp BP Pulse Ox 98.1 F 117 24 147/75 93 08/10/18 11:32 08/10/18 11:32 08/10/18 11:32 08/10/18 11:32 08/10/18 11:32 General: alert, awake, mild respiratory distress in bed ENT: neck supple, mild thyromegaly, no bruit is heard Chest: CTAB, no wheezing or crackles CV: tachy no murmur Abdomen: soft, non-tender Extremities: no edema, distal pulses intact Skin: warm, dry, large bruise on R shoulder Neuro: tremor present, grossly intact motor/sensory in extremities Psych: restricted affect Labs: - enlarged, heterogenous thyroid gland with several hypoechoic nodules <5mm WBC 10.1 10^3/ul (3.5-10.8) 08/09/18 09:45 RBC 3.18 10^6/ul (4.00-5.40) L 08/09/18 09:45 Hgb 9.9 g/dl (14.0-18.0) L 08/09/18 09:45 Hct 28 % (42-52) L 08/09/18 09:45 MCV 89 fL (80-94) 08/09/18 09:45 MCH 31 pg (27-31) 08/09/18 09:45 MCHC 35 g/dl (31-36) 08/09/18 09:45 RDW 16 % (10.5-15) H 08/09/18 09:45 Plt Count 77 10^3/ul (150-450) L 08/09/18 09:45 MPV 8.9 fL (7.4-10.4) 08/09/18 09:45 Neut % (Auto) 89.1 % 08/08/18 05:30 Lymph % (Auto) 5.2 % 08/08/18 05:30 Dukes % (Auto) 5.0 % 08/08/18 05:30 Eos % (Auto) 0.2 % 08/08/18 05:30 Baso % (Auto) 0.5 % 08/08/18 05:30 Absolute Neuts (auto) 7.5 10^3/ul (1.5-7.7) 08/08/18 05:30 Absolute Lymphs (auto) 0.4 10^3/ul (1.0-4.8) L 08/08/18 05:30 Absolute Monos (auto) 0.4 10^3/ul (0-0.8) 08/08/18 05:30 Absolute Eos (auto) 0 10^3/ul (0-0.6) 08/08/18 05:30 Absolute Basos (auto) 0 10^3/ul (0-0.2) 08/08/18 05:30 Absolute Nucleated RBC 0 10^3/ul 08/08/18 05:30 Immature Gran % 6 % (0-9) 08/07/18 05:00 Neutrophils % 87 % 08/07/18 05:00 Band Neutrophils % 4 % (0-8) 08/07/18 05:00 Lymphocytes % 3 % 08/07/18 05:00 Monocytes % 4 % 08/07/18 05:00 Eosinophils % 4 % 08/04/18 01:00 Metamyelocytes % 1 % (0-2) 08/07/18 05:00 Myelocytes % 1 % (0-1) 08/07/18 05:00 Promyelocytes % 2 % 08/04/18 01:00 Nucleated RBC % 0.3 08/08/18 05:30 Abs Neuts (Manual) 9.7 10^3/ul (1.5-7.7) H 08/07/18 05:00 Abs Lymphs (Manual) 0.3 10^3/ul (1.0-4.8) L 08/07/18 05:00 Abs Monocytes (Manual) 0.4 10^3/ul (0-0.8) 08/07/18 05:00 Absolute Eos (Manual) 0.4 10^3/ul (0-0.6) 08/04/18 01:00 Nucleated RBCs/100 WBC 1 (0-0) H 08/07/18 05:00 Normal RBC Morphology Normal (Normal) 08/07/18 05:00 Polychromasia 1+ 08/04/18 01:00 Schistocytes 2+ 08/04/18 01:00 Hem Pathologist Commnt 08/04/18 01:00 INR (Anticoag Therapy) 1.09 (0.77-1.02) H 08/03/18 09:00 APTT 22.8 seconds (26.0-36.3) L 08/03/18 09:00 Patient Temperature Not Reportable 08/04/18 05:55 ABG pH 7.44 (7.35-7.45) 08/04/18 05:55 ABG pH (Temp Correct) Not Reportable 08/04/18 05:55 ABG pCO2 41 mmHg (35-45) 08/04/18 05:55 ABG pCO2 (Temp Corrct Not Reportable 08/04/18 05:55 ABG pO2 131 mmHg (80-100) H 08/04/18 05:55 ABG pO2 (Temp Correct Not Reportable 08/04/18 05:55 ABG HCO3 27.5 mmol/L (19-31) 08/04/18 05:55 ABG O2 Saturation 99.4 % (95-98) H 08/04/18 05:55 ABG Base Excess 3.3 (-2.0-2.0) H 08/04/18 05:55 Respiration Rate 12 08/04/18 05:55 Ventilator Type 550 08/04/18 05:55 Vent Mode Cmv 08/04/18 05:55 FiO2 50 08/04/18 05:55 Inspiratory Time Not Reportable 08/04/18 05:55 PEEP 5 08/04/18 05:55 Pressure Support Not Reportable 08/04/18 05:55 Pressure Control Not Reportable 08/04/18 05:55 EPAP Not Reportable 08/04/18 05:55 IPAP Not Reportable 08/04/18 05:55 BiPAP Not Reportable 08/04/18 05:55 Sodium 142 mmol/L (135-145) 08/09/18 09:45 Potassium 4.3 mmol/L (3.5-5.0) 08/09/18 09:45 Chloride 108 mmol/L (101-111) 08/09/18 09:45 Carbon Dioxide 27 mmol/L (22-32) 08/09/18 09:45 Anion Gap 7 mmol/L (2-11) 08/09/18 09:45 BUN 46 mg/dL (6-24) H 08/09/18 09:45 Creatinine 0.61 mg/dL (0.67-1.17) L 08/09/18 09:45 Est GFR ( Amer) 158.6 (>60) 08/09/18 09:45 Est GFR (Non-Af Amer) 131.1 (>60) 08/09/18 09:45 BUN/Creatinine Ratio 75.4 (8-20) H 08/09/18 09:45 Glucose 203 mg/dL (70-100) H 08/09/18 09:45 POC Glucose (mg/dL) 260 mg/dL (70-100) H 08/10/18 11:17 Lactic Acid 3.1 mmol/L (0.5-2.0) H* 08/04/18 01:00 Calcium 8.4 mg/dL (8.6-10.3) L 08/09/18 09:45 Phosphorus 5.3 mg/dL (2.5-5.0) H 08/04/18 01:00 Magnesium 1.9 mg/dL (1.9-2.7) 08/09/18 09:45 Total Bilirubin 0.50 mg/dL (0.2-1.0) 08/06/18 05:46 Direct Bilirubin 0.10 mg/dL (0.03-0.18) 08/06/18 05:46 Indirect Bilirubin 0.4 mg/dL (0.3-1.0) 08/06/18 05:46 AST 12 U/L (13-39) L 08/06/18 05:46 ALT 139 U/L (7-52) H 08/06/18 05:46 Alkaline Phosphatase 56 U/L (34-104) 08/06/18 05:46 Total Creatine Kinase 32 U/L (10-223) 08/03/18 08:38 Troponin I 0.05 ng/mL (<0.04) H* 08/08/18 02:25 B-Natriuretic Peptide 91 pg/mL (<=100) 08/03/18 09:00 Total Protein 6.7 g/dL (6.4-8.9) 08/06/18 05:46 Albumin 2.1 g/dL (3.2-5.2) L 08/06/18 05:46 Globulin 4.6 g/dL (2-4) H 08/06/18 05:46 Albumin/Globulin Ratio 0.5 (1-3) L 08/06/18 05:46 TSH 0.00 mcIU/mL (0.34-5.60) L 08/04/18 19:34 Free T4 4.15 ng/dL (0.61-1.12) H 08/04/18 19:34 Blood Type A Positive 08/03/18 09:00 Antibody Screen Negative 08/03/18 09:00
[2018-08-10] MEDS ORDERED: Perflutren Lipid Microsphere* 3 ML VIAL ONE (14:03)
[2018-08-10] MEDS: Propranolol TAB* 10 MG PO SCH ×2 (14:23→21:16)
[2018-08-10] MEDS ORDERED: Propranolol TAB* 20 MG PO ONE (15:11)
[2018-08-10] MEDS: Levalbuterol 1.25MG/0.5ML NEB INH PRN ×2 (15:50→22:52)
--- NOTE | 2018-08-10 16:17 | PN ---
Progress Note - Progress Note Date of Service: 08/10/18 SOAP: Subjective: []Called to bedside just prior to 1600 d/t hypoxia and increased resp. effort. RT at bedside s/p neb tx. with limited improvement. O2 SAT recovering with supplemental O2, however cont. resp. effort with tachypnea. Manav denies isolated event causing increased difficulty. Deneis coughing and choking though states he will bring up some stuff and occ. can use yankauer to suction some out. Denies drinking anything prior to event. Nurse notes his breathing was wet this AM but without the difficulty breathing. Events of admission and last 24 hours reviewed: given IV lasix overnight. Medications: Acetaminophen (Tylenol Tab*) 650 mg PO Q4H PRN PRN Reason: FEVER/PAIN Albuterol/Ipratropium (Duoneb (Albuterol 2.5 Mg/Ipratropium 0.5 Mg)) 1 neb INH [id number] AWAKE [facility] Last Admin: 08/10/18 12:52 Dose: Not Given Dexamethasone Sodium Phosphate (Decadron Iv*) 4 mg IV SLOW PU Q12H [facility] Last Admin: 08/10/18 11:48 Dose: 4 mg Dextrose (D50w Syringe 50 Ml*) 12.5 gm IV PUSH .FOR FS < 60 - SS PRN PRN Reason: FS < 60 Enoxaparin Sodium (Lovenox(*)) 80 mg SUBCUT Q12H [facility] Last Admin: 08/10/18 11:48 Dose: 80 mg Insulin Human Lispro (Humalog*) 0 units SUBCUT Q6HR [facility]; Protocol Last Admin: 08/10/18 11:48 Dose: 6 units Lansoprazole (Lansoprazole Susp Kit) 15 mg PO 0900 [facility] Last Admin: 08/10/18 09:59 Dose: 15 mg Levalbuterol HCl (Xopenex 1.25 Mg/0.5 Ml Neb.Windy*) 1.25 mg INH Q2H PRN PRN Reason: SOB/WHEEZING Last Admin: 08/10/18 15:50 Dose: 1.25 mg Lorazepam (Ativan Inj*) 1 mg IV PUSH BEDTIME PRN PRN Reason: INSOMNIA Last Admin: 08/09/18 23:26 Dose: 1 mg Ondansetron HCl (Zofran Inj*) 4 mg IV Q4H PRN PRN Reason: NAUSEA/VOMITING Propranolol HCl (Inderal Tab*) 10 mg PO TID ANTIONE Last Admin: 08/10/18 14:23 Dose: 10 mg Objective: [] Vital Signs Temp Pulse Resp BP Pulse Ox 99.2 F 124 40 150/73 96 08/10/18 15:13 08/10/18 15:53 08/10/18 15:53 08/10/18 15:13 08/10/18 15:53 Alert and oriented, answering questions with short sentances HRR, S1S2, tele ST LS rhonchous throughout with dim. right base - harsh wet cough minimally productive - notable accessory muscle use with tachypnea Laboratory Results - last 24 hr 08/09/18 08/09/18 08/10/18 16:45 23:11 05:04 POC Glucose (mg/dL) 212 H 295 H 335 H 08/10/18 11:17 POC Glucose (mg/dL) 260 H Echo 08/03 with EF 55-60% and impaired diastolic relaxations CXR 08/08 with small bibasilar infiltrates, improved from prior (personally reviewed) STAT portable chest x-ray obtained and personally reviewed without overt evidence for fluid overload (viewed on portable machine) Intake and Output Last 24 Hours 08/08/18 08/09/18 08/10/18 08/11/18 06:59 06:59 06:59 06:59 Intake Total 1454 1579 1279 0 Output Total 1500 1400 1525 0 Balance -46 179 -246 0 Weight 189 lb 2.506 oz Intake: IV Fluids 1218 1430 265 LR 1218 1430 265 Medicated IV 236 149 CC - Amiodarone 236 149 TPN/PPN 465 Oral 0 0 0 Tube Feeding 449 Tube Feeding Flush Amount 100 Output: Urine 60 200 Godfrey 1500 1340 1325 Tube Feeding Residual 0 0 Amount Wasted Other: # Bowel Movements 0 0 Assessment: []68 yo male with metastatic NSCLC s/p gammaknife admitted with progressive weakness found to have small PE with thrombocytopenia of unclear etiology. Hospital course c/b choking event inducing cardiopulmonary arrest, now extubated and out of the ICU for just over 24 hours. Increased respiratory effort of unclear etiology (neg. fluid balance, normal EF, no clear aspiration event, and no improvement with neb) concerning for aspiration of personal fluids or mucous plug. Plan: []1. Tachypnea with rhonchi: concern for mucous plug, however pt. cont.'s to have good forceful cough and stable O2 SAT on 3L NC - IV lasix 20 mg x1 as it helped last night - IV morphine 5 mg q4hrs PRN pain or SOB to provide some resp. rest - cont. supplemental O2 - can consider atropine to help dry secretions though rhonchi are not terminal in nature and appear more bronchial Discussed resp. distress with Manav and he states he would not want to be intubated, though would be OK with non-invasive ventilation. When I reviewed CPR he would want this and understands that this could lead to intubation. Remains Full Code
[2018-08-10] MEDS: Morphine VIAL* 10 MG/ML 1 ML VIAL IV PRN ×2 (16:42→21:32)
[2018-08-10] MEDS: Scopolamine 1.5 mg* PATCH TRANSDERM SCH (17:08)
--- NOTE | 2018-08-10 18:08 | ECHO ---
Patient: RANDA AHMADI [facility] Rec#: [id number] : 1950 Date: 08/10/2018 Age: 68y Height: 178 cm / 70.1 in Weight: 86 kg / 189.5 lbs Sex: M BSA: 2.04 Room#: [facility] Admit Date#: 08/03/2018 Type: Inpatient Referring: Cornelio Camargo Reading: Luis Saab MD Pinking Machine Operator: Julia France [facility] Transthoracic Echocardiogram Indication: S/P Cardiac Arrest BP: 147/75 HR: 108 Rhythm: Tachycardia Findings History: S/P cardiac arrest,pulmonary embolism,metastatic non-small cell lung cancer with BRUSH HAND mets,s/p gamma knife 07/12/18. Definity used to enhance images. Technical Comments: The study is technically difficult. Respiratory artifact noted. Completed at 1440. Left Ventricle: The left ventricular chamber size is normal. The left ventricle appears hyperdynamic. The estimated ejection fraction is greater than 65%. Contrast: Definity was used to optimize study. A total of 5 ml used. Intravenous contrast was used to enhance endocardial border definition. Conclusions focused study to assess LV function. The left ventricle appears hyperdynamic. The estimated ejection fraction is greater than 65%. Similar to the EF of 55-60% noted on the JACKIE of 08.03.18
[2018-08-10] MEDS ORDERED: Sodium Chloride(INHALANT) 7%* 4 ML NEB.SOLN INH PRN (19:30)
--- NOTE | 2018-08-10 19:34 | PN ---
Progress Note - Progress Note Date of Service: 08/10/18 Note: Paged for respiratory distress, hypoxic unable to manage secretions. Respiratory able to do deep suction which did provide some relief. Breath sounds decreased rhonchi b/l. Per operations staff specialist security, lasix did not seem to help his work of breathing. Appears that he is unable to manage his secretions likely microaspirating and mucus plugging. Has minimal respiratory effort when he coughs and gasps after coughing. Will transfer to ICU for vapotherm, trial of hypertonic saline to thin secretions better. Repeat CXR. Patient does not want to be intubated but understands if he goes into cardiac arrest he wants CPR and intubation. Recommend re-addressing goals of care with oncology.
[2018-08-10] MEDS ORDERED: NS 0.9% 500 ML* 500 ML IV ONE (21:24)
[2018-08-10] MEDS: Acetaminophen TAB* 325 MG PO PRN (21:32)
[2018-08-10] MEDS ORDERED: ZOSYN 3.375 GM x ONE DOSE over 30 miuntes IVPB ×2 (22:00)
[2018-08-10 22:10] LABS: Hematocrit 31 % (42-52); Hemoglobin 10.6 g/dl (14.0-18.0); Mean Corpuscular HGB Conc 34 g/dl (31-36); Mean Corpuscular Hemoglobin 31 pg (27-31); Mean Corpuscular Volume 91 fL (80-94); Mean Platelet Volume 10.3 fL (7.4-10.4); Platelet Count 86 10^3/ul (150-450); Red Blood Count 3.44 10^6/ul (4.00-5.40); Red Cell Distribution Width 16 % (10.5-15); White Blood Count 6.8 10^3/ul (3.5-10.8)
[2018-08-10 22:20] LABS: Urine Appearance Cloudy; Urine Bacteria Absent (Absent); Urine Bilirubin Negative (Negative); Urine Blood 1+ (Negative); Urine Color Amber; Urine Glucose Negative (Negative); Urine Ketones Negative (Negative); Urine Nitrite Negative (Negative); Urine Protein 1+(30 mg/dL) (Negative); Urine Red Blood Cell Trace(0-2/hpf) (Absent); Urine Specific Gravity 1.021 (1.010-1.030); Urine Urobilinogen Positive (Negative); Urine White Blood Cell Trace(0-5/hpf) (Absent)
[2018-08-10 22:34] LABS: ABS Basophils 0 10^3/ul (0-0.2); ABS Eosinophils 0.1 10^3/ul (0-0.6); ABS Lymphocytes 0.8 10^3/ul (1.0-4.8); ABS Monocytes 0.1 10^3/ul (0-0.8); ABS Neutrophils 5.7 10^3/ul (1.5-7.7); ABS Nucleated RBC 0.3 10^3/ul
[2018-08-10] MEDS ORDERED: Zosyn per Pharmacy* NOTE FOLLOW UP PRN (22:42)
[2018-08-10 22:44] LABS: Immature Granulocytes 30 % (0-9); Lymphocytes % 12 %; Monocytes % 1 %; Myelocytes % 2 % (0-1); Neutrophil % 51 %; Nucleated Red Blood Cells/100 8 (0-0); Promyelocytes % 1 %; Variant Lymph % 1 % (0-6)
[2018-08-10 22:45] LABS: Polychromasia 1+
[2018-08-10 22:46] LABS: ABS Neutrophils 5.5 10^3/ul (1.5-7.7)
[2018-08-10 22:47] LABS: ABS Eosinophils 0.3 10^3/ul (0-0.6)
[2018-08-10] MEDS ORDERED: Acetaminophen SUPP* 650 MG SUPP PR PRN (23:37)
[2018-08-11] MEDS: Dexamethasone IV* 4 MG/ML 1 ML (4 MG) IV SLOW PU SCH ×2 (00:31→12:58)
[2018-08-11] MEDS: Enoxaparin(*) 80 MG/0.8 ML SYR SUBCUT SCH ×2 (00:31→12:58)
[2018-08-11] MEDS: Insulin LISPRO* 1 UNITS UNIT SUBCUT SCH ×4 (00:42→18:45)
[2018-08-11] MEDS: Albuterol/Ipratropium NEB.SOL* Albuterol 2.5 MG/Ipratropium 0.5 MG 3 ML INH SCH ×4 (00:44→19:11)
[2018-08-11] MEDS: ZOSYN 3.375 GM Q8H per EXTENDED INFUSION IVPB SCH ×6 (02:05→18:47)
[2018-08-11] MEDS ORDERED: Morphine VIAL* 4 MG/ML VIAL (1 ml vial) IV PRN (02:52)
[2018-08-11] MEDS ORDERED: Morphine VIAL* 4 MG/ML VIAL (1 ml vial) ONE (02:55)
[2018-08-11 06:12] LABS: Hematocrit 30 % (42-52); Hemoglobin 10.2 g/dl (14.0-18.0); Mean Corpuscular HGB Conc 34 g/dl (31-36); Mean Corpuscular Hemoglobin 31 pg (27-31); Mean Corpuscular Volume 90 fL (80-94); Mean Platelet Volume 10.1 fL (7.4-10.4); Platelet Count 62 10^3/ul (150-450); Red Blood Count 3.32 10^6/ul (4.00-5.40); Red Cell Distribution Width 16 % (10.5-15); White Blood Count 6.9 10^3/ul (3.5-10.8)
[2018-08-11 06:19] LABS: Albumin/Globulin Ratio 0.6 (1-3); BUN/Creatinine Ratio 61.4 (8-20); Calcium 8.4 mg/dL (8.6-10.3); EGFR Non-African American 56.2 (>60); Globulin 3.5 g/dL (2-4); Total Bilirubin 1.6 mg/dL (0.2-1.0); Total Protein 5.5 g/dL (6.4-8.9)
[2018-08-11 06:21] LABS: Potassium 5.1 mmol/L (3.5-5.0)
--- NOTE | 2018-08-11 09:23 | PN ---
Progress Note - Progress Note Date of Service: 08/11/18 SOAP: Subjective: []Had been doing well as of yesterday. Had been planning transfer to [facility]. Last night acute respiratory distress. Unclear trigger, possible plugging or aspiration. In ICU today on Vapotherm he is better. Breathing this am close to baseline. Temp > 102 and started on antibiotics. Acetaminophen (Tylenol Tab*) 650 mg PO Q4H PRN PRN Reason: FEVER/PAIN Last Admin: 08/10/18 21:32 Dose: 650 mg Acetaminophen (Tylenol Supp*) 650 mg [place] Q6H PRN PRN Reason: FEVER Albuterol/Ipratropium (Duoneb (Albuterol 2.5 Mg/Ipratropium 0.5 Mg)) 1 neb INH [id number] AWAKE [facility] Last Admin: 08/11/18 07:27 Dose: 1 neb Dexamethasone Sodium Phosphate (Decadron Iv*) 4 mg IV SLOW PU Q12H [facility] Last Admin: 08/11/18 00:31 Dose: 4 mg Dextrose (D50w Syringe 50 Ml*) 12.5 gm IV PUSH .FOR FS < 60 - SS PRN PRN Reason: FS < 60 Enoxaparin Sodium (Lovenox(*)) 80 mg SUBCUT Q12H [facility] Last Admin: 08/11/18 00:31 Dose: 80 mg Piperacillin Sod/Tazobactam (Sod 3.375 gm/ Sodium Chloride) 100 mls @ 25 mls/ hr IVPB Q8H [facility] Last Admin: 08/11/18 02:05 Dose: 25 mls/hr Insulin Human Lispro (Humalog*) 0 units SUBCUT Q6HR [facility]; Protocol Last Admin: 08/11/18 05:58 Dose: 2 units Lansoprazole (Lansoprazole Susp Kit) 15 mg PO 0900 [facility] Last Admin: 08/10/18 09:59 Dose: 15 mg Levalbuterol HCl (Xopenex 1.25 Mg/0.5 Ml Neb.Windy*) 1.25 mg INH Q2H PRN PRN Reason: SOB/WHEEZING Last Admin: 08/10/18 22:52 Dose: 1.25 mg Lorazepam (Ativan Inj*) 1 mg IV PUSH BEDTIME PRN PRN Reason: INSOMNIA Last Admin: 08/09/18 23:26 Dose: 1 mg Methimazole (Tapazole Tab*) 20 mg PO BID [facility] Morphine Sulfate (Morphine Vial*) 4 mg IV Q4H PRN PRN Reason: Pain/SOB Last Admin: 08/11/18 02:57 Dose: 4 mg Ondansetron HCl (Zofran Inj*) 4 mg IV Q4H PRN PRN Reason: NAUSEA/VOMITING Pharmacy Consult (Zosyn Per Pharmacy*) 1 note FOLLOW UP . PRN PRN Reason: PER PROTOCOL Pharmacy Profile Note (Scopolamine Patch Remove*) 1 note PATCH OFF Q72H ANTIONE Propranolol HCl (Inderal Tab*) 10 mg PO TID ANTIONE Last Admin: 08/10/18 21:16 Dose: 10 mg Scopolamine (Transderm-Scop 1.5 Mg Patch*) 1 patch TRANSDERM Q72H ANTIONE Last Admin: 08/10/18 17:08 Dose: 1 patch Sodium Chloride (Hyper-John 7%*) 4 ml INH .SEE ORDERS PRN PRN Reason: WHEEZING Last Admin: 08/10/18 20:05 Dose: 4 ml Objective: [] Vital Signs Temp Pulse Resp BP Pulse Ox 99.0 F 95 21 94/67 97 08/11/18 09:00 08/11/18 09:00 08/11/18 09:00 08/11/18 09:00 08/11/18 09:00 HEENT: no thrush or oral lesions. Diffuse edema in neck, no palpable LAD diffuse rhonchi and crackles, no wheezing this am, no change from 3 days ago. diffuse echymosis chest wall is improving +BS NT ND, PEG In place Ext +1 edema Neuro - conversational and oriented. 1/5 strength left side. Impression: 68 year old with metastatic NSCLC, PD-1+ > 90% of cells. Difficulty course complicated by BRIM SETTER disease and left sided weakness s/p gamma knife, thrombocytopenia of unclear etiology. Now admitted with small PE, aspiration and code event, intubated and extubated. Transferred back to ICU last night with acute respiratory distress. DDx: Aspiration from tube feeds, aspirations from secretions, mucus plugging, mucus plugging or aspiration with associated vasospasm. Plan: 1. Respiratory distress. Discussed with patient and family. Continue supportive care but he does not want to go on ventilator again. - Will titrate down Vapotherm as tolerated. - Xopenex 1.25 q 6 - Continue suction - Dye in tube feeds, check for aspiration - Continue Zosyn 2. Code status. He wants continued therapy short of re-intubation but does not want to be on machine. Understands terminal cancer. - DNR/DNI - Remain in ICU next several days until we understand airway risk and resp improved. 3. Thrombocyopenia. Still question of ITP, stable at this time and not a candidate for therapy. BmBx in future if he improves. 5. Neuro. Improved after CVA, goal of PMRU is still reasonable if he improves, supportive if he again turns for the worse. 6. Lung cancer. Immunotherpy is his only option, unclear treatment will be an option 7. DVT/PE. IVC filter and now on anticoagulation. 8. BS. Increased on steroids. ISS. 9. Thyroid. PET in - methimazole 20 mg po bid - Continue propranolol
[2018-08-11] MEDS: Lansoprazole susp Kit 3 MG/ML (15 MG = 5 ML) PO SCH (09:57)
[2018-08-11] MEDS: Propranolol TAB* 10 MG PO SCH ×3 (09:57→21:13)
[2018-08-11] MEDS ORDERED: Levalbuterol 1.25MG/0.5ML NEB INH SCH (10:00)
[2018-08-11] MEDS: Methimazole TAB* 5 MG PO SCH ×2 (11:38→21:12)
[2018-08-11] MEDS: Morphine VIAL* 4 MG/ML VIAL (1 ml vial) IV PRN (16:03)
[2018-08-11] MEDS: LORazepam INJ* 2 MG/ML 1 ML VIAL IV PUSH PRN (21:09)
[2018-08-11] MEDS: Acetaminophen TAB* 325 MG PO PRN (21:13)
[2018-08-12] MEDS: Albuterol/Ipratropium NEB.SOL* Albuterol 2.5 MG/Ipratropium 0.5 MG 3 ML INH SCH ×4 (00:40→19:08)
[2018-08-12] MEDS: Insulin LISPRO* 1 UNITS UNIT SUBCUT SCH ×5 (00:45→23:53)
[2018-08-12] MEDS: Enoxaparin(*) 80 MG/0.8 ML SYR SUBCUT SCH ×3 (00:45→23:53)
[2018-08-12] MEDS: Dexamethasone IV* 4 MG/ML 1 ML (4 MG) IV SLOW PU SCH ×3 (00:45→23:53)
[2018-08-12] MEDS: ZOSYN 3.375 GM Q8H per EXTENDED INFUSION IVPB SCH ×6 (01:40→16:46)
[2018-08-12 05:34] LABS: Hematocrit 29 % (42-52); Hemoglobin 9.8 g/dl (14.0-18.0); Mean Corpuscular HGB Conc 34 g/dl (31-36); Mean Corpuscular Hemoglobin 31 pg (27-31); Mean Corpuscular Volume 91 fL (80-94); Mean Platelet Volume 10.7 fL (7.4-10.4); Platelet Count 72 10^3/ul (150-450); Red Cell Distribution Width 16 % (10.5-15); White Blood Count 9.3 10^3/ul (3.5-10.8)
[2018-08-12 05:49] LABS: ALT 30 U/L (7-52); Albumin 2.1 g/dL (3.2-5.2); Albumin/Globulin Ratio 0.6 (1-3); Alkaline Phosphatase 57 U/L (34-104); BUN/Creatinine Ratio 86.2 (8-20); Blood Urea Nitrogen 94 mg/dL (6-24); CO2 Carbon Dioxide 31 mmol/L (22-32); Calcium 8.2 mg/dL (8.6-10.3); Chloride 111 mmol/L (101-111); EGFR Non-African American 67.1 (>60); Globulin 3.7 g/dL (2-4); Glucose 290 mg/dL (70-100); Magnesium 2.5 mg/dL (1.9-2.7); Sodium 144 mmol/L (135-145); Total Protein 5.8 g/dL (6.4-8.9)
[2018-08-12 05:53] LABS: Anion Gap 2 mmol/L (2-11)
[2018-08-12 06:04] LABS: Immature Granulocytes 18 % (0-9); Lymphocytes % 14 %; Metamyelocytes % 1 % (0-2); Monocytes % 1 %; Myelocytes % 1 % (0-1); Neutrophil % 67 %
[2018-08-12 06:06] LABS: ABS Neutrophils 7.9 10^3/ul (1.5-7.7)
[2018-08-12] MEDS: Lansoprazole susp Kit 3 MG/ML (15 MG = 5 ML) PO SCH (09:07)
[2018-08-12] MEDS: Methimazole TAB* 5 MG PO SCH ×2 (09:08→20:24)
[2018-08-12] MEDS: Propranolol TAB* 10 MG PO SCH ×3 (09:08→20:23)
--- NOTE | 2018-08-12 09:15 | PN ---
Date of Service: 08/12/18 Critical Care Services: Patient had an uneventful evening and this AM is up in bed and breathing comfortably. He seems to benefit from bronchodilator treatments combined with chest percussion and deep suctioning. Vital Signs: Temp Pulse Resp BP SpO2 FiO2 98.8 F 84 40 138/64 98 55 Physical Exam: Gen:Alert, oriented HEENT:Very soft speech. Lungs: Remarkably clear Abdomen: Gastrostomy tube functioning well. Extremities: Trace edema. Fluid Balance (Past 24 Hours): 08/11/18 08/12/18 06:59 06:59 Intake Total 2070 1983 Output Total 610 1230 Balance 1460 753 Weight 188 lb 187 lb Intake: IV Fluids 506 27 LR NS 506 27 IVPB 200 350 ABX - ZOSYN 200 350 TPN/PPN Oral 0 0 Tube Feeding 1304 1276 Tube Feeding Flush Amount 60 60 NG Tube Irrigate Amount 270 Output: Urine 460 Godfrey 410 770 Tube Feeding Residual 200 Amount Wasted Other: Date of Last Bowel 08/12/18 Movement # Bowel Movements 0 1 Labs: 08/12/18 08/12/18 08/12/18 05:20 05:20 05:22 WBC 9.3 Hgb 9.8 Hct 29 MCV 91 MCH 31 MCHC 34 Plt Count 72 Immature Gran % 18 H Neutrophils % 67 Band Neutrophils % 16 H Lymphocytes % 14 Monocytes % 1 Metamyelocytes % 1 Myelocytes % 1 Nucleated RBC % Not Reportable Abs Neuts (Manual) 7.9 H Abs Lymphs (Manual) 1.3 Abs Monocytes (Manual) 0.1 Toxic Granulation 1+ Normal RBC Morphology Normal Sodium 144 Potassium 4.3 Chloride 111 Carbon Dioxide 31 Anion Gap 2 BUN 94 H Creatinine 1.09 Est GFR ( Amer) 81.2 Est GFR (Non-Af Amer) 67.1 BUN/Creatinine Ratio 86.2 H Glucose 290 H POC Glucose (mg/dL) 284 H Calcium 8.2 L Magnesium 2.5 Total Bilirubin 0.80 AST TNP ALT 30 Alkaline Phosphatase 57 Total Protein 5.8 L Albumin 2.1 Globulin 3.7 Albumin/Globulin Ratio 0.6 L Studies: None today Nutrition: Gastrostomy feedings Impression: Major problem is recurrent aspiration, which requires aggressive airway management. This problem is unlikely to improve. Plan: Continue present plan of airway management, and consider an end-point for management in the ICU. Critical Care Time: 40 minutes
--- NOTE | 2018-08-12 11:00 | PN ---
Progress Note - Progress Note Date of Service: 08/12/18 SOAP: Subjective: [No changes in symptoms. Brief episodes of VT, SVT and afib overnight. Patient motivated to continue current interventions.] Objective: [ Laboratory Results - last 24 hr 08/11/18 08/11/18 08/12/18 12:56 18:39 00:32 WBC RBC Hgb Hct MCV MCH MCHC RDW Plt Count MPV Neut % (Auto) Lymph % (Auto) Russell % (Auto) Eos % (Auto) Baso % (Auto) Absolute Neuts (auto) Absolute Lymphs (auto) Absolute Monos (auto) Absolute Eos (auto) Absolute Basos (auto) Absolute Nucleated RBC Immature Gran % Neutrophils % Band Neutrophils % Lymphocytes % Monocytes % Metamyelocytes % Myelocytes % Nucleated RBC % Abs Neuts (Manual) Abs Lymphs (Manual) Abs Monocytes (Manual) Toxic Granulation Normal RBC Morphology Sodium Potassium Chloride Carbon Dioxide Anion Gap BUN Creatinine Est GFR ( Amer) Est GFR (Non-Af Amer) BUN/Creatinine Ratio Glucose POC Glucose (mg/dL) 244 H 355 H 255 H Calcium Magnesium Total Bilirubin AST ALT Alkaline Phosphatase Total Protein Albumin Globulin Albumin/Globulin Ratio 08/12/18 08/12/18 08/12/18 05:20 05:20 05:22 WBC 9.3 RBC 3.20 L Hgb 9.8 L Hct 29 L MCV 91 MCH 31 MCHC 34 RDW 16 H Plt Count 72 L MPV 10.7 H Neut % (Auto) Not Reportable Lymph % (Auto) Not Reportable Russell % (Auto) Not Reportable Eos % (Auto) Not Reportable Baso % (Auto) Not Reportable Absolute Neuts (auto) Not Reportable Absolute Lymphs (auto) Not Reportable Absolute Monos (auto) Not Reportable Absolute Eos (auto) Not Reportable Absolute Basos (auto) Not Reportable Absolute Nucleated RBC Not Reportable Immature Gran % 18 H Neutrophils % 67 Band Neutrophils % 16 H Lymphocytes % 14 Monocytes % 1 Metamyelocytes % 1 Myelocytes % 1 Nucleated RBC % Not Reportable Abs Neuts (Manual) 7.9 H Abs Lymphs (Manual) 1.3 Abs Monocytes (Manual) 0.1 Toxic Granulation 1+ Normal RBC Morphology Normal Sodium 144 Potassium TNP Chloride 111 Carbon Dioxide 31 Anion Gap 2 BUN 94 H Creatinine 1.09 Est GFR ( Amer) 81.2 Est GFR (Non-Af Amer) 67.1 BUN/Creatinine Ratio 86.2 H Glucose 290 H POC Glucose (mg/dL) 284 H Calcium 8.2 L Magnesium 2.5 Total Bilirubin 0.80 AST TNP ALT 30 Alkaline Phosphatase 57 Total Protein 5.8 L Albumin 2.1 L Globulin 3.7 Albumin/Globulin Ratio 0.6 L 08/12/18 06:10 WBC RBC Hgb Hct MCV MCH MCHC RDW Plt Count MPV Neut % (Auto) Lymph % (Auto) Russell % (Auto) Eos % (Auto) Baso % (Auto) Absolute Neuts (auto) Absolute Lymphs (auto) Absolute Monos (auto) Absolute Eos (auto) Absolute Basos (auto) Absolute Nucleated RBC Immature Gran % Neutrophils % Band Neutrophils % Lymphocytes % Monocytes % Metamyelocytes % Myelocytes % Nucleated RBC % Abs Neuts (Manual) Abs Lymphs (Manual) Abs Monocytes (Manual) Toxic Granulation Normal RBC Morphology Sodium Potassium 4.3 Chloride Carbon Dioxide Anion Gap BUN Creatinine Est GFR ( Amer) Est GFR (Non-Af Amer) BUN/Creatinine Ratio Glucose POC Glucose (mg/dL) Calcium Magnesium Total Bilirubin AST 9 L ALT Alkaline Phosphatase Total Protein Albumin Globulin Albumin/Globulin Ratio Acetaminophen (Tylenol Tab*) 650 mg PO Q4H PRN PRN Reason: FEVER/PAIN Last Admin: 08/11/18 21:13 Dose: 650 mg Acetaminophen (Tylenol Supp*) 650 mg [place] Q6H PRN PRN Reason: FEVER Albuterol/Ipratropium (Duoneb (Albuterol 2.5 Mg/Ipratropium 0.5 Mg)) 1 neb INH [id number] AWAKE [facility] Last Admin: 08/12/18 07:37 Dose: 1 neb Dexamethasone Sodium Phosphate (Decadron Iv*) 4 mg IV SLOW PU Q12H [facility] Last Admin: 08/12/18 00:45 Dose: 4 mg Dextrose (D50w Syringe 50 Ml*) 12.5 gm IV PUSH .FOR FS < 60 - SS PRN PRN Reason: FS < 60 Enoxaparin Sodium (Lovenox(*)) 80 mg SUBCUT Q12H [facility] Last Admin: 08/12/18 00:45 Dose: 80 mg Piperacillin Sod/Tazobactam (Sod 3.375 gm/ Sodium Chloride) 100 mls @ 25 mls/ hr IVPB Q8H [facility] Last Admin: 08/12/18 09:21 Dose: 25 mls/hr Insulin Human Lispro (Humalog*) 0 units SUBCUT Q6HR [facility]; Protocol Last Admin: 08/12/18 05:29 Dose: 6 units Lansoprazole (Lansoprazole Susp Kit) 15 mg PO 0900 [facility] Last Admin: 08/12/18 09:07 Dose: 15 mg Levalbuterol HCl (Xopenex 1.25 Mg/0.5 Ml Neb.Windy*) 1.25 mg INH Q2H PRN PRN Reason: SOB/WHEEZING Last Admin: 08/10/18 22:52 Dose: 1.25 mg Lorazepam (Ativan Inj*) 1 mg IV PUSH BEDTIME PRN PRN Reason: INSOMNIA Last Admin: 08/11/18 21:09 Dose: 1 mg Methimazole (Tapazole Tab*) 20 mg PO BID [facility] Last Admin: 08/12/18 09:08 Dose: 20 mg Morphine Sulfate (Morphine Vial*) 2 mg IV Q4H PRN PRN Reason: Pain/SOB Last Admin: 08/11/18 16:03 Dose: 2 mg Ondansetron HCl (Zofran Inj*) 4 mg IV Q4H PRN PRN Reason: NAUSEA/VOMITING Pharmacy Consult (Zosyn Per Pharmacy*) 1 note FOLLOW UP . PRN PRN Reason: PER PROTOCOL Pharmacy Profile Note (Scopolamine Patch Remove*) 1 note PATCH OFF Q72H [facility] Propranolol HCl (Inderal Tab*) 10 mg PO TID [facility] Last Admin: 08/12/18 09:08 Dose: 10 mg Scopolamine (Transderm-Scop 1.5 Mg Patch*) 1 patch TRANSDERM Q72H [facility] Last Admin: 08/10/18 17:08 Dose: 1 patch Sodium Chloride (Hyper-John 7%*) 4 ml INH .SEE ORDERS PRN PRN Reason: WHEEZING Last Admin: 08/10/18 20:05 Dose: 4 ml Vital Signs: Temp Pulse Resp BP Pulse Ox 98.8 F 65 22 123/64 95 08/12/18 10:00 08/12/18 10:00 08/12/18 10:00 08/12/18 10:00 08/12/18 09:45 Exam Gen: 68 yo male in NAD HEENT: hoarse voice, very dry MM with foul odor CV: RRR, no m/r/g Resp: few rhonchi Abd: PEG in place with tube feeding running, hypoactive BS Ext: trace edema Neuro: L arm weakness, tremor resolved] Assessment: [68 yo male with metastatic NSCLC s/p [place] admitted with progressive weakness found to have small PE with thrombocytopenia of unclear etiology. Hospital course c/b choking event inducing cardiopulmonary arrest. Extubated and moved to telemetry floor but now transferred back to ICU in respiratory distress requiring Vapotherm Plan: [1. s/p cardiopulmonary arrest with residual neurologic deficit including severe dysphagia and L sided weakness - failed swallow evaluation - PEG tube placed, tube feedings started 08/09 - profound L sided weakness (L side dominant) - PT started - having a difficult time managing secretions with likely recurrent aspiration - scopolamine patch placed to dry up secretions - cont to work with PT/OT/speech therapy 2. Aspiration PNA - cont Zosyn - cont bronchodilators - using Xopenex to limit systemic stimulation in hyperthyroid state - oral care q 2h 3. 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 Hyperthyroidism - TSH undetectable with tachycardia, tremor and weakness - endocrinology consultation appreciated - started methimazole yesterday - dysrhythmias overnight but baseline HR in 60s so unable to uptitrate propranolol - recheck free T4/free T3 tomorrow - monitoring liver enzymes - thyrotropin receptor antibody pending 5. PE - IVC filter in place - now anticoagulated with Lovenox 6. Metastatic NSCLC - s/p [place] for brain mets - cont dexamethasone 4 mg bid - PDL 1 strongly positive - treatment plan will depend on recovery from this acute event 7. Code status - DNR - patient strongly desires continuing current level of care Dispo: cont ICU level care, re-evaluate care needs after thyroid function stabilizes
[2018-08-12 11:59] LABS: Free T3 3.1 pg/mL (2.5-3.9)
[2018-08-12 12:00] LABS: Free T4 2.97 ng/dL (0.61-1.12)
--- NOTE | 2018-08-12 13:43 | PN ---
Progress Note - Progress Note Date of Service: 08/08/18 Note: NT suctioning is returning material that looks like tube feedings. Therefore, will hold tube feedings to determine effect on upper airway secretions. If aspiration of tube feedings is likely, then we should switch to gastrojejunostomy feedings.
[2018-08-12] MEDS: Atropine 1% (ORAL/SL)* 15 ML BTL SL PRN ×2 (21:32→23:54)
[2018-08-12] MEDS: LORazepam INJ* 2 MG/ML 1 ML VIAL IV PUSH PRN (22:21)
[2018-08-13] MEDS: Albuterol/Ipratropium NEB.SOL* Albuterol 2.5 MG/Ipratropium 0.5 MG 3 ML INH SCH ×4 (00:51→18:51)
[2018-08-13] MEDS: ZOSYN 3.375 GM Q8H per EXTENDED INFUSION IVPB SCH ×6 (02:10→18:12)
[2018-08-13] MEDS: Morphine VIAL* 4 MG/ML VIAL (1 ml vial) IV PRN (02:18)
[2018-08-13] MEDS: Atropine 1% (ORAL/SL)* 15 ML BTL SL PRN (04:30)
[2018-08-13] MEDS: Insulin LISPRO* 1 UNITS UNIT SUBCUT SCH ×3 (05:17→18:12)
[2018-08-13 05:27] LABS: Hematocrit 29 % (42-52); Hemoglobin 9.8 g/dl (14.0-18.0); Mean Corpuscular HGB Conc 33 g/dl (31-36); Mean Corpuscular Hemoglobin 30 pg (27-31); Mean Corpuscular Volume 91 fL (80-94); Platelet Count 81 10^3/ul (150-450); Red Blood Count 3.23 10^6/ul (4.00-5.40); Red Cell Distribution Width 17 % (10.5-15); White Blood Count 13.4 10^3/ul (3.5-10.8)
[2018-08-13 05:41] LABS: Albumin 2.1 g/dL (3.2-5.2); Albumin/Globulin Ratio 0.6 (1-3); BUN/Creatinine Ratio 85.4 (8-20); Calcium 8.4 mg/dL (8.6-10.3); EGFR Non-African American 93.2 (>60); Globulin 3.8 g/dL (2-4); Potassium 4.4 mmol/L (3.5-5.0); Total Bilirubin 0.8 mg/dL (0.2-1.0); Total Protein 5.9 g/dL (6.4-8.9)
[2018-08-13 06:08] LABS: Free T3 3.3 pg/mL (2.5-3.9); Free T4 2.71 ng/dL (0.61-1.12)
[2018-08-13] MEDS: Lansoprazole susp Kit 3 MG/ML (15 MG = 5 ML) PO SCH (08:35)
[2018-08-13] MEDS: Propranolol TAB* 10 MG PO SCH ×3 (08:35→20:35)
[2018-08-13] MEDS: Methimazole TAB* 5 MG PO SCH ×2 (08:35→20:35)
--- NOTE | 2018-08-13 09:25 | PN ---
Date of Service: 10/14/17 Critical Care Services: Because of problems with upper airway secretions yesterday, tube feedings were held, and patient started on atropine oral drops. Secretions much less this AM. Vital Signs: Temp Pulse Resp BP SpO2 FiO2 99.0 F 66 21 126/72 98 45 Physical Exam: Gen:Alert, oriented, breathing comfortably HEENT: No exophthalmos Lungs: Coarse rhonchi both lungs (R>L) Extremities:No cyanosis or edema. No tremors. Fluid Balance (Past 24 Hours): 08/11/18 08/12/18 06:59 06:59 Intake Total 0 1983 Output Total 610 1230 Balance 1460 753 Weight 188 lb 187 lb Intake: IV Fluids 506 27 ABX - ZOSYN NS 506 27 IVPB 200 350 ABX - ZOSYN 200 350 Oral 0 0 Tube Feeding 1304 1276 Tube Feeding Flush Amount 60 60 NG Tube Irrigate Amount 270 Output: Urine 460 Godfrey 410 770 Tube Feeding Residual 200 Amount Wasted Other: Date of Last Bowel 08/12/18 Movement # Bowel Movements 0 1 Estimated Stool Amount Labs: 08/13/18 05:05 WBC 13.4 H Hgb 9.8 L Hct 29 L MCV 91 MCHC 33 RDW 17 H Plt Count 81 MPV 10.0 08/13/18 08/13/18 05:05 05:08 Sodium 149 H Potassium 4.4 Chloride 113 H Carbon Dioxide 30 Anion Gap 6 BUN 70 H Creatinine 0.82 Glucose 205 H POC Glucose (mg/dL) 196 H Calcium 8.4 L Total Bilirubin 0.80 AST 9 L ALT 27 Alkaline Phosphatase 62 Total Protein 5.9 L Albumin 2.1 L Globulin 3.8 Albumin/Globulin Ratio 0.6 L TSH 0.00 Free T4 2.71 Free T3 3.30 Studies: CXR: No infiltrates Nutrition: Tube feedings (held) Impression: 1. Improvement in secretions could be due to atropine/scopolamine or withholding tube feedings (probably a combination of both) 2. Platelet count slowly rising 3. Leukocytosis today but no infiltrate on CXR 4. Is hyperthyroid chemically (but not clinically) Plan: Restart tube feedings - to reduce the risk of gastric aspiration, we can use a high-caloric feeding solution (2 kcal/cc) if available (will reduce the feeding volume by 50%) - if not available, then we should consider gastrojejunostomy feedings.
[2018-08-13] MEDS ORDERED: NS 0.9% 1000 ML* 1,000 ML IV SCH (09:45)
--- NOTE | 2018-08-13 11:31 | PN ---
Progress Note - Progress Note Date of Service: 08/13/18 SOAP: Subjective: [Increased secretions overnight. There was concern regarding aspiration of his tube feedings as his secretions during suctioning were a light brown color. Tmax 100.4 overnight. Feeling better this am.] Objective: [ Laboratory Results - last 24 hr 08/11/18 08/12/18 08/12/18 05:55 06:10 12:39 WBC RBC Hgb Hct MCV MCH MCHC RDW Plt Count MPV Sodium Potassium 4.3 Chloride Carbon Dioxide Anion Gap BUN Creatinine Est GFR ( Amer) Est GFR (Non-Af Amer) BUN/Creatinine Ratio Glucose POC Glucose (mg/dL) 323 H Calcium Total Bilirubin AST 9 L ALT Alkaline Phosphatase Total Protein Albumin Globulin Albumin/Globulin Ratio TSH Free T4 Cancelled 2.97 H Free T3 Cancelled 3.10 08/12/18 08/12/18 08/13/18 18:26 23:45 05:05 WBC 13.4 H RBC 3.23 L Hgb 9.8 L Hct 29 L MCV 91 MCH 30 MCHC 33 RDW 17 H Plt Count 81 L MPV 10.0 Sodium Potassium Chloride Carbon Dioxide Anion Gap BUN Creatinine Est GFR ( Amer) Est GFR (Non-Af Amer) BUN/Creatinine Ratio Glucose POC Glucose (mg/dL) 249 H 213 H Calcium Total Bilirubin AST ALT Alkaline Phosphatase Total Protein Albumin Globulin Albumin/Globulin Ratio TSH Free T4 Free T3 08/13/18 08/13/18 05:05 05:08 WBC RBC Hgb Hct MCV MCH MCHC RDW Plt Count MPV Sodium 149 H Potassium 4.4 Chloride 113 H Carbon Dioxide 30 Anion Gap 6 BUN 70 H Creatinine 0.82 Est GFR ( Amer) 112.7 Est GFR (Non-Af Amer) 93.2 BUN/Creatinine Ratio 85.4 H Glucose 205 H POC Glucose (mg/dL) 196 H Calcium 8.4 L Total Bilirubin 0.80 AST 9 L ALT 27 Alkaline Phosphatase 62 Total Protein 5.9 L Albumin 2.1 L Globulin 3.8 Albumin/Globulin Ratio 0.6 L TSH 0.00 L Free T4 2.71 H Free T3 3.30 Acetaminophen (Tylenol Tab*) 650 mg PO Q4H PRN PRN Reason: FEVER/PAIN Last Admin: 08/11/18 21:13 Dose: 650 mg Acetaminophen (Tylenol Supp*) 650 mg [place] Q6H PRN PRN Reason: FEVER Albuterol/Ipratropium (Duoneb (Albuterol 2.5 Mg/Ipratropium 0.5 Mg)) 1 neb INH [id number] AWAKE [facility] Last Admin: 08/13/18 07:29 Dose: 1 neb Dexamethasone Sodium Phosphate (Decadron Iv*) 4 mg IV SLOW PU Q12H [facility] Last Admin: 08/12/18 23:53 Dose: 4 mg Dextrose (D50w Syringe 50 Ml*) 12.5 gm IV PUSH .FOR FS < 60 - SS PRN PRN Reason: FS < 60 Enoxaparin Sodium (Lovenox(*)) 80 mg SUBCUT Q12H [facility] Last Admin: 08/12/18 23:53 Dose: 80 mg Piperacillin Sod/Tazobactam (Sod 3.375 gm/ Sodium Chloride) 100 mls @ 25 mls/ hr IVPB Q8H [facility] Last Admin: 08/13/18 10:08 Dose: 25 mls/hr Insulin Human Lispro (Humalog*) 0 units SUBCUT Q6HR [facility]; Protocol Last Admin: 08/13/18 05:17 Dose: 2 units Lansoprazole (Lansoprazole Susp Kit) 15 mg PO 0900 [facility] Last Admin: 08/13/18 08:35 Dose: 15 mg Levalbuterol HCl (Xopenex 1.25 Mg/0.5 Ml Neb.Windy*) 1.25 mg INH Q2H PRN PRN Reason: SOB/WHEEZING Last Admin: 08/10/18 22:52 Dose: 1.25 mg Lorazepam (Ativan Inj*) 1 mg IV PUSH BEDTIME PRN PRN Reason: INSOMNIA Last Admin: 08/12/18 22:21 Dose: 1 mg Methimazole (Tapazole Tab*) 20 mg PO BID [facility] Last Admin: 08/13/18 08:35 Dose: 20 mg Morphine Sulfate (Morphine Vial*) 2 mg IV Q4H PRN PRN Reason: Pain/SOB Last Admin: 08/13/18 02:18 Dose: 2 mg Ondansetron HCl (Zofran Inj*) 4 mg IV Q4H PRN PRN Reason: NAUSEA/VOMITING Pharmacy Consult (Zosyn Per Pharmacy*) 1 note FOLLOW UP . PRN PRN Reason: PER PROTOCOL Pharmacy Profile Note (Scopolamine Patch Remove*) 1 note PATCH OFF Q72H [facility] Propranolol HCl (Inderal Tab*) 10 mg PO TID [facility] Last Admin: 08/13/18 08:35 Dose: 10 mg Scopolamine (Transderm-Scop 1.5 Mg Patch*) 1 patch TRANSDERM Q72H [facility] Last Admin: 08/10/18 17:08 Dose: 1 patch Sodium Chloride (Hyper-John 7%*) 4 ml INH .SEE ORDERS PRN PRN Reason: WHEEZING Last Admin: 08/10/18 20:05 Dose: 4 ml Vital Signs: Temp Pulse Resp BP Pulse Ox 99.0 F 81 27 118/65 87 08/13/18 10:45 08/13/18 10:45 08/13/18 10:45 08/13/18 10:00 08/13/18 10:45 Exam Gen: 68 yo male in NAD HEENT: hoarse voice, very dry MM with foul odor, some thrush present CV: RRR, no m/r/g Resp: few rhonchi Abd: PEG in place with tube feeding running, hypoactive BS Ext: trace edema Neuro: L arm weakness, tremor resolved] Assessment: [68 yo male with metastatic NSCLC s/p [place] admitted with progressive weakness found to have small PE with thrombocytopenia of unclear etiology. Hospital course c/b choking event inducing cardiopulmonary arrest. Extubated and moved to telemetry floor but now transferred back to ICU in respiratory distress requiring Vapotherm Plan: [1. s/p cardiopulmonary arrest with residual neurologic deficit including severe dysphagia and L sided weakness - failed swallow evaluation - PEG tube placed, tube feedings started 08/09 - profound L sided weakness (L side dominant) - PT started - having a difficult time managing secretions with likely recurrent aspiration - scopolamine patch placed to dry up secretions - cont to work with PT/OT/speech therapy 2. Aspiration PNA - cont Zosyn - cont bronchodilators - using Xopenex to limit systemic stimulation in hyperthyroid state - oral care q 2h 3. 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 Hyperthyroidism - TSH undetectable with tachycardia, tremor and weakness - endocrinology consultation appreciated - started methimazole 08/11 - no further dysrhythmias in last 24 hrs - free T4 still elevated, slightly improving on repeat testing after 48h - monitoring liver enzymes - thyrotropin receptor antibody pending 5. PE - IVC filter in place - now anticoagulated with Lovenox 6. Metastatic NSCLC - s/p [place] for brain mets - cont dexamethasone 4 mg bid - PDL 1 strongly positive - treatment plan will depend on recovery from this acute event 7. Thrush - paint nystatin on tongue 8. Code status - DNR - patient strongly desires continuing current level of care Dispo: cont ICU level care, re-evaluate care needs after thyroid function stabilizes
[2018-08-13] MEDS: Nystatin SUSPENSION* 100000 UNITS/ML 5 ML UDC PO SCH ×3 (12:41→20:35)
[2018-08-13] MEDS: Enoxaparin(*) 80 MG/0.8 ML SYR SUBCUT SCH (12:41)
[2018-08-13] MEDS: Dexamethasone IV* 4 MG/ML 1 ML (4 MG) IV SLOW PU SCH (12:41)
[2018-08-13] MEDS ORDERED: Scopolamine PATCH Remove* 1 NOTE MISC PATCH OFF SCH (17:00)
[2018-08-13] MEDS: Scopolamine 1.5 mg* PATCH TRANSDERM SCH (18:13)
[2018-08-14] MEDS: Enoxaparin(*) 80 MG/0.8 ML SYR SUBCUT SCH ×2 (00:04→11:47)
[2018-08-14] MEDS: Dexamethasone IV* 4 MG/ML 1 ML (4 MG) IV SLOW PU SCH (00:04)
[2018-08-14] MEDS: LORazepam INJ* 2 MG/ML 1 ML VIAL IV PUSH PRN ×2 (00:29→23:56)
[2018-08-14] MEDS: Insulin LISPRO* 1 UNITS UNIT SUBCUT SCH ×4 (00:33→17:46)
[2018-08-14] MEDS: Morphine VIAL* 4 MG/ML VIAL (1 ml vial) IV PRN ×4 (01:57→23:56)
[2018-08-14] MEDS: ZOSYN 3.375 GM Q8H per EXTENDED INFUSION IVPB SCH ×6 (02:00→17:16)
[2018-08-14] MEDS: Albuterol/Ipratropium NEB.SOL* Albuterol 2.5 MG/Ipratropium 0.5 MG 3 ML INH SCH ×5 (02:24→19:34)
[2018-08-14 07:23] LABS: BUN/Creatinine Ratio 73.3 (8-20); Calcium 8.3 mg/dL (8.6-10.3); EGFR Non-African American 103.3 (>60); Potassium 4.6 mmol/L (3.5-5.0)
[2018-08-14 07:33] LABS: Hematocrit 29 % (42-52); Hemoglobin 9.6 g/dl (14.0-18.0); Mean Corpuscular HGB Conc 33 g/dl (31-36); Mean Corpuscular Hemoglobin 31 pg (27-31); Mean Corpuscular Volume 92 fL (80-94); Mean Platelet Volume 9.9 fL (7.4-10.4); Platelet Count 106 10^3/ul (150-450); Red Blood Count 3.16 10^6/ul (4.00-5.40); Red Cell Distribution Width 17 % (10.5-15); White Blood Count 21.5 10^3/ul (3.5-10.8)
[2018-08-14] MEDS: Lansoprazole susp Kit 3 MG/ML (15 MG = 5 ML) PO SCH (07:49)
[2018-08-14] MEDS: Propranolol TAB* 10 MG PO SCH (07:49)
[2018-08-14] MEDS: Methimazole TAB* 5 MG PO SCH ×2 (07:49→21:13)
[2018-08-14] MEDS: Nystatin SUSPENSION* 100000 UNITS/ML 5 ML UDC PO SCH ×4 (07:50→21:27)
--- NOTE | 2018-08-14 10:46 | PN ---
Progress Note - Progress Note Date of Service: 08/14/18 SOAP: Subjective: []Better today. Secretions have not been an issue. Tolerating tube feeds. Low grade fever. Breathing stable. Responding to questions but voce weak. Acetaminophen (Tylenol Tab*) 650 mg PO Q4H PRN PRN Reason: FEVER/PAIN Last Admin: 08/11/18 21:13 Dose: 650 mg Acetaminophen (Tylenol Supp*) 650 mg [place] Q6H PRN PRN Reason: FEVER Albuterol/Ipratropium (Duoneb (Albuterol 2.5 Mg/Ipratropium 0.5 Mg)) 1 neb INH [id number] AWAKE [facility] Last Admin: 08/14/18 07:52 Dose: 1 neb Dexamethasone Sodium Phosphate (Decadron Iv*) 4 mg IV SLOW PU Q12H [facility] Last Admin: 08/14/18 00:04 Dose: 4 mg Dextrose (D50w Syringe 50 Ml*) 12.5 gm IV PUSH .FOR FS < 60 - SS PRN PRN Reason: FS < 60 Enoxaparin Sodium (Lovenox(*)) 80 mg SUBCUT Q12H [facility] Last Admin: 08/14/18 00:04 Dose: 80 mg Piperacillin Sod/Tazobactam (Sod 3.375 gm/ Sodium Chloride) 100 mls @ 25 mls/ hr IVPB Q8H [facility] Last Admin: 08/14/18 09:15 Dose: 25 mls/hr Insulin Human Lispro (Humalog*) 0 units SUBCUT Q6HR [facility]; Protocol Last Admin: 08/14/18 07:22 Dose: 2 units Lansoprazole (Lansoprazole Susp Kit) 15 mg PO 0900 [facility] Last Admin: 08/14/18 07:49 Dose: 15 mg Levalbuterol HCl (Xopenex 1.25 Mg/0.5 Ml Neb.Windy*) 1.25 mg INH Q2H PRN PRN Reason: SOB/WHEEZING Last Admin: 08/10/18 22:52 Dose: 1.25 mg Lorazepam (Ativan Inj*) 1 mg IV PUSH BEDTIME PRN PRN Reason: INSOMNIA Last Admin: 08/14/18 00:29 Dose: 1 mg Methimazole (Tapazole Tab*) 20 mg PO BID [facility] Last Admin: 08/14/18 07:49 Dose: 20 mg Morphine Sulfate (Morphine Vial*) 2 mg IV Q4H PRN PRN Reason: Pain/SOB Last Admin: 08/14/18 01:57 Dose: 2 mg Nystatin (Nystatin Suspension*) 500,000 units PO QID [facility] Stop: 08/20/18 11:32 Last Admin: 08/14/18 07:50 Dose: 500,000 units Ondansetron HCl (Zofran Inj*) 4 mg IV Q4H PRN PRN Reason: NAUSEA/VOMITING Pharmacy Consult (Zosyn Per Pharmacy*) 1 note FOLLOW UP . PRN PRN Reason: PER PROTOCOL Pharmacy Profile Note (Scopolamine Patch Remove*) 1 note PATCH OFF Q72H [facility] Last Admin: 08/13/18 18:13 Dose: 1 patch Propranolol HCl (Inderal Tab*) 10 mg PO TID [facility] Last Admin: 08/14/18 07:49 Dose: 10 mg Scopolamine (Transderm-Scop 1.5 Mg Patch*) 1 patch TRANSDERM Q72H [facility] Last Admin: 08/13/18 18:13 Dose: 1 patch Sodium Chloride (Hyper-John 7%*) 4 ml INH .SEE ORDERS PRN PRN Reason: WHEEZING Last Admin: 08/10/18 20:05 Dose: 4 ml Objective: [] Vital Signs Temp Pulse Resp BP Pulse Ox 99.3 F 72 22 134/68 94 08/14/18 10:01 08/14/18 10:01 08/14/18 10:17 08/14/18 10:01 08/14/18 10:01 HEENT: no thrush or oral lesions. Diffuse edema in neck, no palpable LAD no distress but RR increased and some wheezing diffuse echymosis chest wall is improving +BS NT ND, PEG In place Ext +1 edema Neuro - conversational and oriented. did not check strength. Labs WBC to 21.3, Plts 100, Na 153 Impression: 68 year old with metastatic NSCLC, PD-1+ > 90% of cells. Difficulty course complicated by [employer] disease and left sided weakness s/p gamma knife, thrombocytopenia of unclear etiology. Now admitted with small PE, aspiration and code event, intubated and extubated. Transferred back to ICU with acute respiratory distress, aspiration vs mucus plug. Improving but still some respiratory distress and bed bound. Plan: 1. Respiratory distress. Better but above baselin - Now on NC, titrate to sat > 90% - Wheezing, Xopenex 1.25 q 6 and ask pulmonary re inhalers - Continue suction - Continue Zosyn 2. Code status. He wants continued therapy short of re-intubation but does not want to be on machine. Understands terminal cancer. - DNR/DNI. Remain in ICU until it is clear airway is stable, possible transfer tomorrow. 3. Thrombocyopenia. Improving 5. Neuro. Improved after CVA, goal of PMRU is still reasonable if he improves, supportive if he again turns for the worse. 6. Lung cancer. Immunotherpy is his only option, unclear treatment will be an option. - Taper Dex to 2 mg at night and 4 mg in am, down by 2 mg q 4 days while stable 7. DVT/PE. IVC filter and now on anticoagulation. 8. BS. Increased on steroids. ISS. Will taper steriods 9. FEN. Hypernatremic. Assume access to free water. - Increase TF by 10 cc q shift as tolerated, goal 45 cc/hr - NS 100 cc/hr today 9. Thyroid - methimazole 20 mg po bid, check TSH and free T4 tomorrow - decreased propranolol for wheezing
[2018-08-14] MEDS: NS 0.9% 1000 ML* 1,000 ML IV SCH ×2 (11:01→21:38)
[2018-08-14] MEDS: Levalbuterol 1.25MG/0.5ML NEB INH PRN (11:55)
[2018-08-14] MEDS: Acetaminophen TAB* 325 MG PO PRN ×2 (13:41→21:50)
--- NOTE | 2018-08-14 15:20 | PN ---
Progress Note - Progress Note Date of Service: 08/14/18 - Pulmonary note Note: Pt seen and examined at bedside. Pt reports no dyspnea, having trouble expectorating sputum. Feels phleghm is thick. Active Medications Generic Name Dose Route Start Last Admin Trade Name Freq PRN Reason Stop Dose Admin Acetaminophen 650 mg 08/03/18 11:18 08/14/18 13:41 Tylenol Tab* PO 650 mg Q4H PRN Administration FEVER/PAIN Acetaminophen 650 mg 08/10/18 23:37 Tylenol Supp* NE Q6H PRN FEVER Albuterol/Ipratropium 1 neb 08/07/18 13:00 08/14/18 14:13 Duoneb (Albuterol 2.5 Mg/Ipratropium 0.5 Mg) INH 1 neb [id number] AWAKE ANTIONE Administration Dexamethasone Sodium Phosphate 4 mg 08/15/18 09:00 Decadron Iv* IV SLOW PU DAILY ANTIONE Dextrose 12.5 gm 08/03/18 12:00 D50w Syringe 50 Ml* IV PUSH .FOR FS < 60 - SS PRN FS < 60 Enoxaparin Sodium 80 mg 08/10/18 12:00 08/14/18 11:47 Lovenox(*) SUBCUT 80 mg Q12H ANTIONE Administration Piperacillin Sod/Tazobactam 100 mls @ 25 mls/hr 08/11/18 02:00 08/14/18 09:15 Sod 3.375 gm/ Sodium Chloride IVPB 25 mls/hr Q8H ANTIONE Administration Sodium Chloride 1,000 mls @ 100 mls/hr 08/14/18 11:00 08/14/18 11:01 Ns 0.9% 1000 Ml* IV 100 mls/hr PER RATE ANTIONE Administration Dexamethasone Sodium Phosphate 50.5 mls @ 204 mls/hr 08/14/18 21:00 2 mg/ Sodium Chloride IVPB 08/14/18 21:14 ONCE ONE Insulin Human Lispro 0 units 08/04/18 12:00 08/14/18 11:47 Humalog* SUBCUT 2 units Q6HR ANTIONE Administration Protocol Lansoprazole 15 mg 08/09/18 12:00 08/14/18 07:49 Lansoprazole Susp Kit PO 15 mg 0900 ANTIONE Administration Levalbuterol HCl 1.25 mg 08/07/18 23:39 08/14/18 11:55 Xopenex 1.25 Mg/0.5 Ml Neb.Windy* INH 1.25 mg Q2H PRN Administration SOB/WHEEZING Lorazepam 1 mg 08/07/18 19:15 08/14/18 00:29 Ativan Inj* IV PUSH 1 mg BEDTIME PRN Administration INSOMNIA Methimazole 20 mg 08/11/18 10:00 08/14/18 07:49 Tapazole Tab* PO 20 mg BID ANTIONE Administration Morphine Sulfate 2 mg 08/11/18 15:53 08/14/18 12:27 Morphine Vial* IV 2 mg Q4H PRN Administration Pain/SOB Nystatin 500,000 units 08/13/18 13:00 08/14/18 11:51 Nystatin Suspension* PO 08/20/18 11:32 Not Given QID ANTIONE Ondansetron HCl 4 mg 08/03/18 11:18 Zofran Inj* IV Q4H PRN NAUSEA/VOMITING Pharmacy Consult 1 note 08/10/18 22:42 Zosyn Per Pharmacy* FOLLOW UP . PRN PER PROTOCOL Pharmacy Profile Note 1 note 08/13/18 17:00 08/13/18 18:13 Scopolamine Patch Remove* PATCH OFF 1 patch Q72H ANTIONE Administration Propranolol HCl 10 mg 08/14/18 21:00 Inderal Tab* PO BID ANTIONE Scopolamine 1 patch 08/10/18 17:00 08/13/18 18:13 Transderm-Scop 1.5 Mg Patch* TRANSDERM 1 patch Q72H ANTIONE Administration Sodium Chloride 4 ml 08/10/18 19:30 08/10/18 20:05 Hyper-John 7%* INH 4 ml .SEE ORDERS PRN Administration WHEEZING Vital Signs Temp Pulse Resp BP Pulse Ox 99.7 F 97 22 111/59 97 08/14/18 15:01 08/14/18 15:01 08/14/18 15:03 08/14/18 15:00 08/14/18 15:01 O/E: Pt in NAD HEENT: No JVD, Oral thrush present Resp: Rhonchi +, L>R CV: RRR, no murmur Abd: PEG +, hypoactive BS Ext: trace edema Neuro: L arm weakness Skin: Petechiae and bruise +] Assessment: 68 yo male with metastatic NSCLC s/p gammaknife admitted with progressive weakness found to have small PE with thrombocytopenia of unclear etiology. Pts hospital course c/b aspiration resulting in cardiopulmonary arrest. Pt was extubated and moved to telemetry floor, transferred back to ICU due to respiratory distress requiring Vapotherm and concern with recurrent aspiration. Pt had PEG placement, tube feedings started 08/09, still had aspiration episode , now receiving concentrated feeds and rate slowly being increased Pt with difficulty clearing secretions, feels they are very thick. He has been receiving Scopolamine for secretions. Will add Mucinex. He is receiving metanebs. Aspiration precautions c/w Zosyn On Lovenox for PE, also had IVC filter placed Thrombocytopenia s/p IVIG Hyperthyroidism on methimazole Metastatic NSCLC s/p gamma knife for brain mets, treatment as per oncology Tube feeds with slow increase to goal of 45cc/hr Plan to monitor in ICU today given need for frequent resp care D/w Dr Norton
[2018-08-14] MEDS ORDERED: NS 0.9% IVPB ONE (21:00)
[2018-08-14] MEDS ORDERED: Propranolol TAB* 10 MG PO SCH (21:00)
[2018-08-14] MEDS ORDERED: DEXAMETHASONE IVPB ONE (21:00)
[2018-08-14] MEDS: guaiFENesin ER TAB 600 MG PO SCH (21:14)
[2018-08-15] MEDS: Albuterol/Ipratropium NEB.SOL* Albuterol 2.5 MG/Ipratropium 0.5 MG 3 ML INH SCH ×4 (00:56→16:15)
[2018-08-15] MEDS: Enoxaparin(*) 80 MG/0.8 ML SYR SUBCUT SCH ×2 (01:14→11:26)
[2018-08-15] MEDS: Insulin LISPRO* 1 UNITS UNIT SUBCUT SCH ×3 (01:19→12:17)
[2018-08-15] MEDS: ZOSYN 3.375 GM Q8H per EXTENDED INFUSION IVPB SCH ×4 (01:50→11:26)
[2018-08-15 07:10] LABS: Hematocrit 35 % (42-52); Mean Corpuscular HGB Conc 32 g/dl (31-36); Mean Corpuscular Hemoglobin 30 pg (27-31); Mean Corpuscular Volume 94 fL (80-94); Mean Platelet Volume 10.3 fL (7.4-10.4); Platelet Count 82 10^3/ul (150-450); Red Cell Distribution Width 18 % (10.5-15); White Blood Count 13.4 10^3/ul (3.5-10.8)
[2018-08-15 07:11] LABS: Albumin 2.3 g/dL (3.2-5.2); CO2 Carbon Dioxide 23 mmol/L (22-32); Calcium 8.5 mg/dL (8.6-10.3); Magnesium 2.4 mg/dL (1.9-2.7)
[2018-08-15 07:17] LABS: ALT 30 U/L (7-52); Albumin/Globulin Ratio 0.6 (1-3); Alkaline Phosphatase 77 U/L (34-104); BUN/Creatinine Ratio 63.4 (8-20); Blood Urea Nitrogen 52 mg/dL (6-24); EGFR Non-African American 93.2 (>60); Globulin 3.7 g/dL (2-4); Glucose 231 mg/dL (70-100)
[2018-08-15 07:25] LABS: ABS Neutrophils 12.3 10^3/ul (1.5-7.7); Immature Granulocytes 5 % (0-9); Lymphocytes % 6 %; Monocytes % 2 %; Neutrophil % 87 %
[2018-08-15 07:27] LABS: Chloride 119 mmol/L (101-111); Sodium 151 mmol/L (135-145)
[2018-08-15 07:30] LABS: Anion Gap 9 mmol/L (2-11)
[2018-08-15] MEDS: LORazepam INJ* 2 MG/ML 1 ML VIAL IV PUSH PRN ×2 (08:15→16:06)
[2018-08-15] MEDS ORDERED: LORazepam INJ* 2 MG/ML 1 ML VIAL IV PUSH ONE ×2 (08:16→14:45)
[2018-08-15] MEDS: Methimazole TAB* 5 MG PO SCH (08:44)
[2018-08-15] MEDS: Lansoprazole susp Kit 3 MG/ML (15 MG = 5 ML) PO SCH (08:44)
[2018-08-15] MEDS: Nystatin SUSPENSION* 100000 UNITS/ML 5 ML UDC PO SCH ×2 (08:45→13:35)
[2018-08-15] MEDS: Propranolol TAB* 10 MG PO SCH ×2 (08:45→13:35)
[2018-08-15] MEDS: Morphine VIAL* 4 MG/ML VIAL (1 ml vial) IV PRN ×2 (08:56→16:01)
[2018-08-15] MEDS ORDERED: Dexamethasone IV* 4 MG/ML 1 ML (4 MG) IV SLOW PU SCH ×2 (09:00)
--- NOTE | 2018-08-15 09:05 | PN ---
Hospitalist Progress Note Date of Service: 08/15/18 pt spiked tmp but on abx ---> [facility] cx ordered and consider to repeat chest x ray ---> trial by staff failed and pt refused to have blood cx done
--- NOTE | 2018-08-15 09:31 | PN ---
Progress Note - Progress Note Date of Service: 08/15/18 SOAP: Subjective: []Feels fine today, no changes. Breathing is good, reports no increase in choking or secretions with increase in tube feeds. No pain this am. Acetaminophen (Tylenol Tab*) 650 mg PO Q4H PRN PRN Reason: FEVER/PAIN Last Admin: 08/14/18 21:50 Dose: 650 mg Acetaminophen (Tylenol Supp*) 650 mg ID Q6H PRN PRN Reason: FEVER Albuterol/Ipratropium (Duoneb (Albuterol 2.5 Mg/Ipratropium 0.5 Mg)) 1 neb INH [id number] AWAKE [facility] Last Admin: 08/15/18 08:13 Dose: 1 neb Dexamethasone Sodium Phosphate (Decadron Iv*) 2 mg IV SLOW PU BID [facility] Last Admin: 08/15/18 08:44 Dose: 2 mg Dextrose (D50w Syringe 50 Ml*) 12.5 gm IV PUSH .FOR FS < 60 - SS PRN PRN Reason: FS < 60 Enoxaparin Sodium (Lovenox(*)) 80 mg SUBCUT Q12H [facility] Last Admin: 08/15/18 01:14 Dose: 80 mg Guaifenesin (Mucinex*) 600 mg PO BID [facility] Last Admin: 08/14/18 21:14 Dose: Not Given Piperacillin Sod/Tazobactam (Sod 3.375 gm/ Sodium Chloride) 100 mls @ 25 mls/ hr IVPB Q8H [facility] Last Admin: 08/15/18 01:50 Dose: 25 mls/hr Sodium Chloride (Ns 0.9% 1000 Ml*) 1,000 mls @ 100 mls/hr IV PER RATE [facility] Last Admin: 08/14/18 21:38 Dose: 100 mls/hr Insulin Human Lispro (Humalog*) 0 units SUBCUT Q6HR [facility]; Protocol Last Admin: 08/15/18 06:13 Dose: 4 units Lansoprazole (Lansoprazole Susp Kit) 15 mg PO 0900 [facility] Last Admin: 08/15/18 08:44 Dose: 15 mg Levalbuterol HCl (Xopenex 1.25 Mg/0.5 Ml Neb.Windy*) 1.25 mg INH Q2H PRN PRN Reason: SOB/WHEEZING Last Admin: 08/14/18 11:55 Dose: 1.25 mg Lorazepam (Ativan Inj*) 1 mg IV PUSH BEDTIME PRN PRN Reason: INSOMNIA Last Admin: 08/15/18 08:15 Dose: 1 mg Methimazole (Tapazole Tab*) 20 mg PO BID [facility] Last Admin: 08/15/18 08:44 Dose: 20 mg Morphine Sulfate (Morphine Vial*) 2 mg IV Q4H PRN PRN Reason: Pain/SOB Last Admin: 08/15/18 08:56 Dose: 2 mg Nystatin (Nystatin Suspension*) 500,000 units PO QID [facility] Stop: 08/20/18 11:32 Last Admin: 08/15/18 08:45 Dose: 500,000 units Ondansetron HCl (Zofran Inj*) 4 mg IV Q4H PRN PRN Reason: NAUSEA/VOMITING Pharmacy Consult (Zosyn Per Pharmacy*) 1 note FOLLOW UP . PRN PRN Reason: PER PROTOCOL Propranolol HCl (Inderal Tab*) 10 mg PO TID [facility] Last Admin: 08/15/18 08:45 Dose: 10 mg Sodium Chloride (Hyper-John 7%*) 4 ml INH .SEE ORDERS PRN PRN Reason: WHEEZING Last Admin: 08/10/18 20:05 Dose: 4 ml Objective: Vital Signs T max 100.6 recorded, verbal report of 101.0 Temp Pulse Resp BP Pulse Ox 100.6 F 125 36 130/70 93 08/15/18 08:01 08/15/18 08:01 08/15/18 08:56 08/15/18 08:00 08/15/18 08:01 HEENT: no thrush or oral lesions. Diffuse edema in neck, no palpable LAD just gettng neb and lungs CTA +BS NT ND, PEG In place Ext +1 edema Neuro - conversational and oriented. did not check strength. Labs: plts 82, Na 151, down Impression: 68 year old with metastatic NSCLC, PD-1+ > 90% of cells. 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 In ICU after episode of acute respiratory distress, aspiration vs mucus plug. Improving but still some respiratory distress and bed bound. Fever last night to 101.0 Plan: 1. Aspiration. Better but with new fever last night. - Now on NC, titrate to sat > 90% - Wheezing, Xopenex 1.25 q 6 and ask pulmonary re inhalers - Continue suction - Check CXR 2. ID. Fever. On Zosyn, re-check blood cultures. 3. Code status. DNR/DNI. Wants all treatment short of intubatin 4. Thrombocyopenia. Stable, ITP vs thyrotoxicossis 5. Neuro. 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 6. Lung cancer. Immunotherpy is his only option, unclear treatment will be an option. - Taper Dex to 2 mg bid 7. DVT/PE. IVC filter and now on anticoagulation. 8. BS. Increased on steroids. ISS, tapering steroids. 9. FEN. Hypernatremic but improving. Assume access to free water. - Increase TF by 10 cc today, goal 45 cc/hr - Will monitor for aspiration - NS 100 cc/hr, continue 9. Thyroid - methimazole 20 mg po bid, check TSH and free T4 tomorrow - Tachycardia, increase propranolol
[2018-08-15] MEDS ORDERED: NS 0.9% 1000 ML* 1,000 ML IV SCH ×2 (09:33→12:58)
[2018-08-15] MEDS ORDERED: GuaiFENesin DM* 5 ML UDC PO PRN (10:31)
--- NOTE | 2018-08-15 10:57 | PN ---
Progress Note - Progress Note Date of Service: 08/15/18 - Pulm f/u note Note: Pt seen and examined at bedside. Pt reports feeling better. Had fever spike last night, pt declined bl cx. Continues to have thick secretions. Active Medications Generic Name Dose Route Start Last Admin Trade Name Freq PRN Reason Stop Dose Admin Acetaminophen 650 mg 08/03/18 11:18 08/14/18 21:50 Tylenol Tab* PO 650 mg Q4H PRN Administration FEVER/PAIN Acetaminophen 650 mg 08/10/18 23:37 Tylenol Supp* NE Q6H PRN FEVER Albuterol/Ipratropium 1 neb 08/07/18 13:00 08/15/18 08:13 Duoneb (Albuterol 2.5 Mg/Ipratropium 0.5 Mg) INH 1 neb [id number] AWAKE ANTIONE Administration Dexamethasone Sodium Phosphate 2 mg 08/15/18 09:00 08/15/18 08:44 Decadron Iv* IV SLOW PU 2 mg BID ANTIONE Administration Dextrose 12.5 gm 08/03/18 12:00 D50w Syringe 50 Ml* IV PUSH .FOR FS < 60 - SS PRN FS < 60 Enoxaparin Sodium 80 mg 08/10/18 12:00 08/15/18 01:14 Lovenox(*) SUBCUT 80 mg Q12H ANTIONE Administration Guaifenesin/Dextromethorphan 10 ml 08/15/18 10:31 Robitussin Dm* PO Q6H PRN COUGH Piperacillin Sod/Tazobactam 100 mls @ 25 mls/hr 08/11/18 02:00 08/15/18 01:50 Sod 3.375 gm/ Sodium Chloride IVPB 25 mls/hr Q8H ANTIONE Administration Sodium Chloride 1,000 mls @ 50 mls/hr 08/15/18 09:33 Ns 0.9% 1000 Ml* IV PER RATE ANTIONE Insulin Human Lispro 0 units 08/04/18 12:00 08/15/18 06:13 Humalog* SUBCUT 4 units Q6HR ANTIONE Administration Protocol Lansoprazole 15 mg 08/09/18 12:00 08/15/18 08:44 Lansoprazole Susp Kit PO 15 mg 0900 ANTIONE Administration Levalbuterol HCl 1.25 mg 08/07/18 23:39 08/14/18 11:55 Xopenex 1.25 Mg/0.5 Ml Neb.Windy* INH 1.25 mg Q2H PRN Administration SOB/WHEEZING Lorazepam 1 mg 08/07/18 19:15 08/15/18 08:15 Ativan Inj* IV PUSH 1 mg BEDTIME PRN Administration INSOMNIA Methimazole 20 mg 08/11/18 10:00 08/15/18 08:44 Tapazole Tab* PO 20 mg BID ANTIONE Administration Morphine Sulfate 2 mg 08/11/18 15:53 08/15/18 08:56 Morphine Vial* IV 2 mg Q4H PRN Administration Pain/SOB Nystatin 500,000 units 08/13/18 13:00 08/15/18 08:45 Nystatin Suspension* PO 08/20/18 11:32 500,000 units QID ANTIONE Administration Ondansetron HCl 4 mg 08/03/18 11:18 Zofran Inj* IV Q4H PRN NAUSEA/VOMITING Pharmacy Consult 1 note 08/10/18 22:42 Zosyn Per Pharmacy* FOLLOW UP . PRN PER PROTOCOL Propranolol HCl 10 mg 08/15/18 09:00 08/15/18 08:45 Inderal Tab* PO 10 mg TID ANTIONE Administration Sodium Chloride 4 ml 08/10/18 19:30 08/10/18 20:05 Hyper-John 7%* INH 4 ml .SEE ORDERS PRN Administration WHEEZING Vital Signs Temp Pulse Resp BP Pulse Ox 101.1 F 105 30 123/65 96 08/15/18 10:01 08/15/18 10:01 08/15/18 10:01 08/15/18 10:00 08/15/18 10:01 O/E: Pt in NAD HEENT: No JVD Resp: Rhonchi +, L>R, no accessory muscle usage CV: RRR, no murmur Abd: PEG +, hypoactive BS Ext: trace edema Neuro:Alert, awake, L arm weakness Skin: Petechiae and bruise +] Laboratory Results - last 24 hr 08/12/18 08/14/18 08/14/18 05:20 11:39 17:37 WBC RBC Hgb Hct MCV MCH MCHC RDW Plt Count MPV Neut % (Auto) Lymph % (Auto) [place] % (Auto) Eos % (Auto) Baso % (Auto) Absolute Neuts (auto) Absolute Lymphs (auto) Absolute Monos (auto) Absolute Eos (auto) Absolute Basos (auto) Absolute Nucleated RBC Immature Gran % Neutrophils % Band Neutrophils % Lymphocytes % Monocytes % Nucleated RBC % Abs Neuts (Manual) Abs Lymphs (Manual) Abs Monocytes (Manual) Normal RBC Morphology Sodium Potassium Chloride Carbon Dioxide Anion Gap BUN Creatinine Est GFR ( Amer) Est GFR (Non-Af Amer) BUN/Creatinine Ratio Glucose POC Glucose (mg/dL) 184 H 183 H Lactic Acid Calcium Phosphorus Magnesium Total Bilirubin AST ALT Alkaline Phosphatase Total Protein Albumin Globulin Albumin/Globulin Ratio TSH TSH Receptor Ab <1.00 08/15/18 08/15/18 08/15/18 01:13 06:02 06:40 WBC 13.4 H RBC 3.70 L Hgb 11.0 L Hct 35 L MCV 94 MCH 30 MCHC 32 RDW 18 H Plt Count 82 L MPV 10.3 Neut % (Auto) Not Reportable Lymph % (Auto) Not Reportable [place] % (Auto) Not Reportable Eos % (Auto) Not Reportable Baso % (Auto) Not Reportable Absolute Neuts (auto) Not Reportable Absolute Lymphs (auto) Not Reportable Absolute Monos (auto) Not Reportable Absolute Eos (auto) Not Reportable Absolute Basos (auto) Not Reportable Absolute Nucleated RBC Not Reportable Immature Gran % 5 Neutrophils % 87 Band Neutrophils % 5 Lymphocytes % 6 Monocytes % 2 Nucleated RBC % Not Reportable Abs Neuts (Manual) 12.3 H Abs Lymphs (Manual) 0.8 L Abs Monocytes (Manual) 0.3 Normal RBC Morphology Normal Sodium Potassium Chloride Carbon Dioxide Anion Gap BUN Creatinine Est GFR ( Amer) Est GFR (Non-Af Amer) BUN/Creatinine Ratio Glucose POC Glucose (mg/dL) 273 H 208 H Lactic Acid Calcium Phosphorus Magnesium Total Bilirubin AST ALT Alkaline Phosphatase Total Protein Albumin Globulin Albumin/Globulin Ratio TSH TSH Receptor Ab 08/15/18 08/15/18 06:40 06:40 WBC RBC Hgb Hct MCV MCH MCHC RDW Plt Count MPV Neut % (Auto) Lymph % (Auto) [place] % (Auto) Eos % (Auto) Baso % (Auto) Absolute Neuts (auto) Absolute Lymphs (auto) Absolute Monos (auto) Absolute Eos (auto) Absolute Basos (auto) Absolute Nucleated RBC Immature Gran % Neutrophils % Band Neutrophils % Lymphocytes % Monocytes % Nucleated RBC % Abs Neuts (Manual) Abs Lymphs (Manual) Abs Monocytes (Manual) Normal RBC Morphology Sodium 151 H Potassium TNP Chloride 119 H Carbon Dioxide 23 Anion Gap 9 BUN 52 H Creatinine 0.82 Est GFR ( Amer) 112.7 Est GFR (Non-Af Amer) 93.2 BUN/Creatinine Ratio 63.4 H Glucose 231 H POC Glucose (mg/dL) Lactic Acid 2.0 Calcium 8.5 L Phosphorus 4.0 Magnesium 2.4 Total Bilirubin 0.80 AST TNP ALT 30 Alkaline Phosphatase 77 Total Protein 6.0 L Albumin 2.3 L Globulin 3.7 Albumin/Globulin Ratio 0.6 L TSH 0.00 L TSH Receptor Ab Assessment: 68 yo male with metastatic NSCLC s/p gammaknife admitted with progressive weakness found to have small PE with thrombocytopenia of unclear etiology. Pts hospital course c/b aspiration resulting in cardiopulmonary arrest. Pt was extubated and moved to telemetry floor, transferred back to ICU due to respiratory distress requiring Vapotherm and concern with recurrent aspiration. Pt had PEG placement, tube feedings started 08/09, still had aspiration episode , now receiving concentrated feeds and rate slowly being increased Pt with difficulty clearing secretions, feels they are very thick. He has been receiving Scopolamine for secretions. Having thick secretions, d/claudio Scopalamine. Will add Mucinex. He is receiving metanebs. Aspiration precautions c/w Zosyn has been on since 08/11 day#6, received 1 dose on 08/04 prior to that Has been spiking fever on abx. CXR didnot show any acute changes. Clinically loooks same. Suspect if drug fever or from hyperthyroidism. Pt on Zosyn. Pt also on Atropine/Scopolamine that were d/claudio. Pt on Lovenox for PE, also had IVC filter placed Thrombocytopenia s/p IVIG Hyperthyroidism on methimazole Hypernatremia- Likely sec to dehydration, receiving IVF, unable to give free water through PEG as pt has issues with aspiration. c/w IVF Metastatic NSCLC s/p gamma knife for brain mets, treatment as per oncology Tube feeds with slow increase to goal of 45cc/hr, currently at 30cc/hr Plan to monitor in ICU today given need for frequent resp care D/w Dr Norton
[2018-08-15] MEDS: guaiFENesin ER TAB 600 MG PO SCH (11:13)
[2018-08-15] MEDS: Acetaminophen TAB* 325 MG PO PRN (11:26)
[2018-08-15] MEDS ORDERED: Morphine VIAL* 4 MG/ML VIAL (1 ml vial) IV ONE (12:07)
[2018-08-15 15:51] VITALS: BP 128/72
[2018-08-15] MEDS ORDERED: Morphine VIAL* 4 MG/ML VIAL (1 ml vial) ONE (16:19)
--- NOTE | 2018-08-15 21:40 | DS ---
SUMMARY: DATE OF ADMISSION: 08/03/18 DATE OF : 08/15/18 TIME OF : 4:50 p.m. REASON FOR HOSPITAL ADMISSION: Generalized weakness. CAUSE OF : Respiratory arrest due to hypoxemic respiratory failure from aspiration pneumonia. 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 The patient was having a complicated course recently with thrombocytopenia, which was treated with IVIG and dexamethasone. The patient was hospitalized on 08/21/18 for generalized weakness. CTA showed small pulmonary embolism and he was initiated on anticoagulation after an IVC filter being placed as his platelets were low initially limiting the use of anticoagulant. He also had a significant smoking history and history of COPD. He had significant dyspnea since admission. He was transferred to ICU for hypoxemic respiratory failure after acute aspiration episode. He had been treated for aspiration pneumonia. His hospital course was also complicated by evidence hyperthyroidism, for which he was initiated on methimazole and propranolol. The patient's TSH levels failed to improve. He continued to have recurrent aspiration episodes while in the hospital and was evaluated for PEG placement. The patient had PEG tube placed and was initiated on feeds. He was able to tolerate the feeds without much residuals. His tube feeds were advanced to 40 cc per hour. His respiratory status continued to be worse. He had been receiving nebulizers, mucus clearance with MetaNebs was also being performed. He had been receiving Ativan for anxiety as needed. He had also been getting morphine to help relieve work of breathing. He had been requiring significant suctioning. The patient, however, continued to require ICU care. He had been on steroids for ITP. His platelet count was 80 today. He was found to be hypernatremic, had been receiving normal saline at 100 cc per hour. His propranolol dose was increased for the tachycardia. The TSH still continued to be low at 0. The patient did not want aggressive measures. He had signed MOLST form indicating DNR status. The patient deteriorated around 4 p.m. today while in the ICU. He was found to be tachypneic and tachycardic. 2 mg plus 2 mg of IV morphine and 1 mg of Ativan were administered; however, his work of breathing did not improve. He had received DuoNeb, continued to have significant work of breathing. He was communicative at that time appropriately responding, following commands. The patient continued to deteriorate. Family was contacted and updated on the status. Family wanted DNR/DNI status to be honored. Dr. Norton was also updated on the status. The patient was placed on BiPAP to ensure decreased work of breathing and also to help with hypercapnia. Bedside chest x-ray was also performed, which did not reveal any change from the prior chest x-ray from this morning. In spite of all these efforts, the patient continued to deteriorate and around 4:50 p.m. on 08/15/18. Family was notified. Dr. Norton was contacted and informed about the patient's expiration. This is brief summary of the patient's hospitalization. Please refer to daily progress notes and other consultation reports for further details. [id number] #: [id number] MTDD
== END 2018-08-15 16:50 | disposition expired | DRG 134 ==
LOC: ED 08:24 → MED 11:18 → ICU 16:50 → MED 22:00 → ICU 23:22 → MEDTELE 08-09 09:45 → ICU 08-10 19:53
PROVIDERS: ADMIT Internal Medicine; ATTEND Internal Medicine
PROC: 06H03DZ Insertion of Intraluminal Device into Inferior Vena Cava, Percutaneous Approach (ICD-10-PCS; 2018-08-03)
PROC: 5A1945Z Respiratory Ventilation, 24-96 Consecutive Hours (ICD-10-PCS; 2018-08-03)
PROC: 0BH17EZ Insertion of Endotracheal Airway into Trachea, Via Natural or Artificial Opening (ICD-10-PCS; 2018-08-03)
PROC: 0BP1XDZ Removal of Intraluminal Device from Trachea, External Approach (ICD-10-PCS; 2018-08-03)
PROC: 0DH63UZ Insertion of Feeding Device into Stomach, Percutaneous Approach (ICD-10-PCS; 2018-08-08)
PROC: 0DJ08ZZ Inspection of Upper Intestinal Tract, Via Natural or Artificial Opening Endoscopic (ICD-10-PCS; 2018-08-08)
PROC: 5A2204Z Restoration of Cardiac Rhythm, Single (ICD-10-PCS; principal; 2018-08-08 11:15)
PROC: 5A09357 Assistance with Respiratory Ventilation, Less than 24 Consecutive Hours, Continuous Positive Airway Pressure (ICD-10-PCS; 2018-08-15)
DX: I26.99 Other pulmonary embolism without acute cor pulmonale (principal); J69.0 Pneumonitis due to inhalation of food and vomit; J96.01 Acute respiratory failure with hypoxia; C34.90 Malignant neoplasm of unspecified part of unspecified bronchus or lung; C79.40 Secondary malignant neoplasm of unspecified part of nervous system; D69.3 Immune thrombocytopenic purpura; C79.31 Secondary malignant neoplasm of brain; I47.2 Ventricular tachycardia; E87.1 Hypo-osmolality and hyponatremia; T17.428A Food in trachea causing other injury, initial encounter; I82.409 Acute embolism and thrombosis of unspecified deep veins of unspecified lower extremity; I46.9 Cardiac arrest, cause unspecified; G89.29 Other chronic pain; M54.9 Dorsalgia, unspecified; Z51.5 Encounter for palliative care; J44.9 Chronic obstructive pulmonary disease, unspecified; E09.65 Drug or chemical induced diabetes mellitus with hyperglycemia; E05.90 Thyrotoxicosis, unspecified without thyrotoxic crisis or storm; R62.51 Failure to thrive (child); I48.91 Unspecified atrial fibrillation; K44.9 Diaphragmatic hernia without obstruction or gangrene; K29.70 Gastritis, unspecified, without bleeding; Z66 Do not resuscitate; R74.8 Abnormal levels of other serum enzymes; Z80.8 Family history of malignant neoplasm of other organs or systems; Z87.891 Personal history of nicotine dependence; Z72.89 Other problems related to lifestyle; Z92.21 Personal history of antineoplastic chemotherapy
CPT/HCPCS: 36415; 36600; 70450; 70490; 71045; 71275; 76000; 76536; 80048; 80053; 80076; 81003; 81015; 82550; 82803; 83520; 83605; 83735; 83880; 84100; 84439; 84443; 84481; 84484; 85025; 85027; 85060; 85610; 85730; 86850; 86900; 86901; 87040; 87086; 87641; 92960; 93005; 93306; 93308; 93970; 94002; 94003; 94640; 94660; 94667; 94668; 99156; 99157; 99223; 99232; 99233; 99285; A9270-GY; C1880; C8924; G8978-GP-CM; G8979-GP-CI; J0171; J0282; J0690; J1100; J1572; J1644; J1650; J1940; J2060; J2250; J2270; J2310; J2543; J2704; J3010; J8540; Q9967